=== PATIENT | female | born 1955 | race Two or more races ===

== ENCOUNTER 2017-02-25 09:46 | Inpatient (IN) | payer OTHER ==
[~2017-02-25] VITALS: Ht 170.2 cm; Wt 81.6 kg
[2017-02-25] VITALS (23 sets, daily range): BP systolic 76–136; BP diastolic 38–70
[2017-02-25] MEDS ORDERED: Acetaminophen 650 MG SUPP RECTAL ONE (10:00)
[2017-02-25 10:20] LABS: MEAN CORPUSCULAR HEMOGLOBIN 27.3 PG (27.0-31.0); MEAN CORPUSCULAR HGB CONC 31.1 G/DL (32.0-36.0); MEAN CORPUSCULAR VOLUME 88 FL (80-99); PLATELET COUNT 78 K/UL (150-450); RED BLOOD COUNT 2.72 M/UL (4.70-6.10); RED CELL DISTRIBUTION WIDTH 20.3 % (11.6-14.8)
[2017-02-25 10:21] LABS: WHITE BLOOD COUNT 25.5 K/UL (4.8-10.8)
[2017-02-25] MEDS ORDERED: ACETAMINOPHEN500 M7 PO (10:29)
[2017-02-25] MEDS ORDERED: FOLIC ACID1 MG ORAL (10:29)
[2017-02-25] MEDS ORDERED: ACETAMINOPHEN-1 EAC1 ORAL (10:29)
[2017-02-25] MEDS ORDERED: ALBUTEROL SULF8.5 GM INH (10:29)
[2017-02-25] MEDS ORDERED: LOPERAMIDE2 M1 PO (10:29)
[2017-02-25] MEDS ORDERED: REGLAN5 MG ORAL ×2 (10:29→19:18)
[2017-02-25] MEDS ORDERED: NEPHROVITE1 TAB ORAL (10:29)
[2017-02-25] MEDS ORDERED: LEVOTHYROXINE50 MCG ORAL (10:29)
[2017-02-25] MEDS ORDERED: OMEPRAZOLE20 M2 ORAL (10:29)
[2017-02-25] MEDS ORDERED: MEGESTROL ACETA40 MG PO (10:29)
[2017-02-25] MEDS ORDERED: METOPROLOL TART50 MG ORAL (10:29)
[2017-02-25] MEDS ORDERED: LOSARTAN POTASS25 MG ORAL (10:29)
[2017-02-25] MEDS ORDERED: ATORVASTATIN CA10 MG ORAL (10:29)
[2017-02-25] MEDS ORDERED: REGLAN10 MG ORAL (10:29)
[2017-02-25] MEDS ORDERED: Zemuron 50mg/5ml Inj IV ONE (10:30)
[2017-02-25] MEDS ORDERED: Etomidate 40mg/20ml Inj IV ONE (10:30)
--- NOTE | 2017-02-25 10:36 | Emergency Room Report ---
History of Present Illness General Chief Complaint: Altered Level of Consciousness Source: Medical Record Present Illness HPI 62-year-old female brought in from [facility] for altered metal status and hypotension Per EMS normal mental status is alert and oriented x3 He should not providing history of present illness, lying in bed moaning repeatedly All information from paperwork from [facility] History of muscle wasting, atrophy, hemolytic uremic syndrome anemia high blood pressure and chronic diastolic heart failure Also has chronic kidney disease Allergies: Coded Allergies: PENICILLINS (Verified Allergy, Unknown, 02/25/17) PIPERACILLIN (Verified Allergy, Unknown, 02/25/17) TAZOBACTAM (Verified Allergy, Unknown, 02/25/17) Patient History Past Medical History: other - see history of present illness Past Surgical History: unable to obtain Pertinent Family History: unable to obtain Social History: Denies: smoking, alcohol use, drug use Immunizations: UTD Reviewed Nursing Documentation: PMH: Agreed, PSxH: Agreed Nursing Documentation-PMH Hx Cardiac Problems: Yes - CHF; Anemia; High cholesterol Hx Hypertension: Yes Hx Dialysis: Yes - ; Hemolytic-uremic syndrome; CKD Review of Systems All Other Systems: limited - AMS Physical Exam Vital Signs Date Time Temp Pulse Resp B/P (MAP) Pulse Ox O2 Delivery O2 Flow Rate FiO2 02/25/17 09:44 100.0 94 20 75/38 100 Nasal Cannula 2.0 Sp02 EP Interpretation: reviewed, abnormal General Appearance: normal inspection, moderate distress, other - Cachextic, moaning, Chronically Ill Head: normocephalic, atraumatic Eyes: bilateral eye PERRL, bilateral eye EOMI ENT: normal ENT inspection, normal pharynx, no angioedema Neck: normal inspection, full range of motion, supple, no bony tend Respiratory: normal inspection, crackles, speaking full sentences Cardiovascular #1: regular rate, rhythm, no edema Gastrointestinal: normal inspection, normal bowel sounds, non tender, soft, no guarding, no hernia Genitourinary: no CVA tenderness Musculoskeletal: normal inspection, back normal, normal range of motion, Arpan' s Sign negative Neurologic: normal inspection, alert, responsive, speech normal Psychiatric: normal inspection, judgement/insight normal, mood/affect normal Skin: normal inspection, normal color, no rash Procedures Critical Care Time Critical Care Time CC time 45min Critical care time endorsed for this patient for sepsis Critical care time includes review of laboratory tests, imaging, review of EMR, review of paperwork from SNF (if available), discussion with patient and family (if available), review of code status/POLS (if available). Critical care time also likely includes assessment of fluid status, stabilization of vital signs, selection and dosing of appropriate antibiotics, selection and dosing of Aspirin/Plavix/Heparin/Lovenox, discussion with PMD/ attending hospitalist/nutrition partner. Critical care time does not include any procedures which are documented elsewhere in this EMR. Central Line Central Line : Consent: Emergent Central Line Lumen: triple Maximal Sterile Barrier Tech: yes cap, yes mask, yes sterile gown, yes sterile gloves, yes large sterile sheet, yes hand hygiene, yes chlorhexidine prep No Max Barrier Tech Because: emergency insertion Central Line Postion: internal jugular (R) Complications: none Central Line Post Position: sutured, good blood return, position confirmed w / CXR Attempts: One Patient Tolerated: Well Complications: None Intubation Intubation : Consent: Emergent Intubation Method: orotracheal Tube Size (cm): 7.5 Medications: Etomidate, Rocuronium Breath Sounds after Intubation: equal Intubation Complications: no complications Post Intubation Xray: Yes Attempts: One Patient Tolerated: Well Complications: None Medical Decision Making Diagnostic Impression: Primary Impression: Altered level of consciousness Additional Impressions: Sepsis Qualified Codes: A41.9 - Sepsis, unspecified organism Hypotension Qualified Codes: I95.9 - Hypotension, unspecified Anemia Qualified Codes: D64.9 - Anemia, unspecified CKD (chronic kidney disease) Qualified Codes: N18.6 - End stage renal disease; Z99.2 - Dependence on renal dialysis Elevated troponin I level ER Course 62-year-old female with altered mental status likely due to bilateral pneumonia Sepsis criteria met given hypotension, tachycardic, febrile and evidence of pneumonia on chest x-ray Was emergently intubated in the ER Antibiotics given, blood cultures pending Gave only one liter of fluid given history of CHF, so full 30 mL per KG fluid bolus per sepsis bundle was not given because of underlying heart failure Chest x-ray shows diffuse pulmonary congestion, no actual pneumonia per radiology read Patient does not make urine due to CKD on dialysis Patient initial hypotension likely multifactorial Hemoglobin is 7.4, she was transfused 2 units of blood in the ED Patient also possibly hypotensive due to sepsis. White count greater than 20. Chest x-ray shows pulmonary congestion and but there could be underlying infiltrate. Abdomen is nondistended so that is also unlikely the source. Elevated troponin greater than 1 however EKG shows sinus tachycardia with PVCs only no no ST elevation or ST depression Will hold on giving heparin for nstemi given thrombocytopenia Elevated troponin likely more related to demand ischemia from sepsis and/or Ckd Patient had a right IJ central line placed in the ER However her blood pressure has maintained with 1 L NS Does not require pressors in the ER ICU admission, 11:[address] Cason as preferred hospital per insurance EKG Diagnostic Results Rate: tachycardiac Rhythm: NSR ST Segments: no acute changes ASA given to the pt in ED: No Rhythm Strip Diag. Results EP Interpretation: yes Rate: 109 Rhythm: NSR, no PVC's Chest X-Ray Diagnostic Results Chest X-Ray Diagnostic Results #1: Chest X-Ray Ordered: Yes # of Views/Limited/Complete: 1 View Indication: Shortness of Breath EP Interpretation: Yes Interpretation: no effusion, no pneumothorax, other - Bilateral infilitates , PNA vs CHF Electronically Signed by: Dr Ashanti Omer MD Chest X-Ray Diagnostic Results #2: Chest X-Ray Ordered: Yes # of Views/Limited/Complete: 1 View Indication: Other - intubation EP Interpretation: Yes Interpretation: other - Continued pulm congestion. Satisfactory ET tube placement Electronically Signed by: Dr Ashanti Omer MD Last Vital Signs Date Time Temp Pulse Resp B/P (MAP) Pulse Ox O2 Delivery O2 Flow Rate FiO2 02/25/17 09:44 100.0 94 20 75/38 100 Nasal Cannula 2.0 Status: improved Disposition: ADMITTED INPATIENT Condition: Critical Referrals: ROSANNE POLLARD (PCP) ASHANTI OMER M.D. Feb 25, 2017 10:36
--- NOTE | 2017-02-25 10:58 | Diagnostic Imaging Report ---
Indication: Dyspnea Comparison: None A single view chest radiograph was obtained. Findings: Vascular and interstitial prominence demonstrated with cardiomegaly. There is a right permacath. Bones are osteopenic. Impression: Congestive heart failure
[2017-02-25 11:04] LABS: ANISOCYTOSIS 2+; BAND NEUTROPHILS % (MANUAL) 0 % (0-8); BASOPHILS % (MANUAL) 0 % (0-2); EOSINOPHILS % (MANUAL) 0 % (0-3); HYPOCHROMASIA 1+; LYMPHOCYTES % (MANUAL) 1 % (20-45); NEUTROPHILS % (MANUAL) 98 % (45-75); PLATELET ESTIMATE DECREASED; PLATELET MORPHOLOGY NORMAL; TOTAL CELLS COUNTED 100
[2017-02-25 11:05] LABS: ALANINE AMINOTRANSFERASE 9 U/L (12-78); ALBUMIN/GLOBULIN RATIO 0.4 (1.0-2.7); ANION GAP 7 mmol/L (5-15); ASPARTATE AMINO TRANSFERASE 33 U/L (15-37); CALCIUM 7.5 MG/DL (8.5-10.1); CARBON DIOXIDE 28 MMOL/L (21-32); CHLORIDE 105 MMOL/L (98-107); CKMB 4.3 NG/ML (0.0-3.6); CREATININE 2.5 MG/DL (0.55-1.30); GLOMERULAR FILTRATION RATE 26.3 mL/min (>60); POTASSIUM 3.5 MMOL/L (3.5-5.1); SODIUM 139 MMOL/L (136-145); TOTAL PROTEIN 4.8 G/DL (6.4-8.2)
--- NOTE | 2017-02-25 11:15 | Diagnostic Imaging Report ---
Indication: Dyspnea Comparison: 02/25/17 10:17 A single view chest radiograph was obtained. Findings: Current study done 10:53 Endotracheal tube is in good position 3 cm above the mary. No change otherwise demonstrated. Pulmonary edema, right permacath noted with cardiomegaly. Impression: Endotracheal tube in good position
[2017-02-25] MEDS ORDERED: Levophed 4mg/4mL Inj IV ONE (13:01)
[2017-02-25 14:07] LABS: ABG PCO2 41.6 mmHg (35.0-45.0)
[2017-02-25 14:08] LABS: ABG ALLEN TEST POSITIVE; ABG BASE EXCESS -0.6
[2017-02-25] MEDS ORDERED: Vancomycin 1 GM in D5W 275 ML IVPB ONE (14:30)
[2017-02-25] MEDS ORDERED: Vancomycin 1gm inj IVPB ONE (14:54)
[2017-02-25] MEDS ORDERED: LORazepam Inj 2mg/ml 1ml IV PRN (15:15)
[2017-02-25] MEDS ORDERED: Miralax 17gm pkt ORAL PRN (15:15)
[2017-02-25] MEDS ORDERED: Albuterol/Ipratropium 3ml neb HHN PRN (15:15)
--- NOTE | 2017-02-25 15:38 | Pulmonolgy Critical Care Note ---
Critical Care - Asmt/Plan Assessment/Plan: ASSESSMENT severe sepsis with shock acute hypoxemic respiratory failure requiring intubation acute toxic metabolic encephalopathy likely due to sepsis elevated troponin acute anemia requiring blood transfusion Pulmonary edema ESRD, on HD Hx of CHF PLAN OF CARE ICU care vent support Pulmonary toilet daily CXR and ABG titrate settings as needed hemodynamic support on Levophed, titrate to keep MAP above 65, empiric abx, fup with cx ID consult serial troponin ECHO Venous Duplex BLE transfuse 2 u PRBC monitor counts anemia w/up DVT GI prophylaxis case discussed and evaluated by supervising physician Critical Care - Objective Last 24 Hour Vital Signs Date Time Temp Pulse Resp B/P (MAP) Pulse Ox O2 Delivery O2 Flow Rate FiO2 02/25/17 13:30 97.5 121 17 105/51 100 Room Air 2.0 30 91 02/25/17 13:11 80/48 02/25/17 12:38 105 18 30 02/25/17 11:30 121 14 136/70 100 Mechanical Ventilator 100 02/25/17 11:00 97.5 02/25/17 11:00 117 12 100 02/25/17 11:00 97.5 02/25/17 10:46 100 02/25/17 10:30 108 19 76/44 100 Nasal Cannula 2.0 02/25/17 09:50 117 12 Mechanical Ventilator 02/25/17 09:50 100.1 115 18 85/44 99 Nasal Cannula 2.0 02/25/17 09:50 115 20 Nasal Cannula 2.0 02/25/17 09:44 100.0 94 20 75/38 100 Nasal Cannula 2.0 Status: sedated, other Condition: critical HEENT: atraumatic, normocephalic, other - OP with ET in palce, intact Neck: other - RIJ TL intact Lungs: clear, other - R chest HD catheter intact Heart: HR/BP unstable Abdomen: soft, non-tender, active bowel sounds Extremities: no C/C/E Critical Care - Subjective ROS Limited/Unobtainable: Yes Interval Events: admitted with fever, hypoxemia, tachycardia, hypotension , anemia, elevated troponin required emergent intubation and placement of CL for pressors started on blood transfusion awaiting for transfer to ICU Condition: critical IV Access: central - R IJ EKG Rhythm: Sinus Rhythm FI02: 30 Vent Support Breath Rate: 14 Vent Support Mode: AC Vent Tidal Volume: 500 Sputum Amount: Scant PEEP: 5.0 PIP: 18 Fluids: NS at 100 Drips: Levophed gtt I&O: Intake and Output 02/25/17 02/26/17 19:00 07:00 Intake Total 1100 ml Output Total 0 ml Balance 1100 ml Intake IV Total 1100 ml Output Urine Total 0 ml ET-Tube: 7.5 ET Position: 25 Hero (RosetteJuanis ramey NP Feb 25, 2017 15:38
[2017-02-25] MEDS ORDERED: Amikacin 1,000 MG in NS 110 ML IV SCH (18:00)
[2017-02-25] MEDS ORDERED: NEPHRO-VITE RX1 EAC1 PO (19:09)
[2017-02-25] MEDS ORDERED: ACETAMINOPHEN325 M1 ORAL (19:14)
[2017-02-25] MEDS: Heparin 5000 units/ml inj SUBQ SCH (21:00)
[2017-02-25] MEDS ORDERED: Vancomycin 1 GM in D5W 275 ML IV SCH (23:45)
[2017-02-26] VITALS (86 sets, daily range): BP systolic 68–160; BP diastolic 29–78
[2017-02-26 06:43] LABS: ALANINE AMINOTRANSFERASE 9 U/L (12-78); ALBUMIN/GLOBULIN RATIO 0.3 (1.0-2.7); ANION GAP 11 mmol/L (5-15); ASPARTATE AMINO TRANSFERASE 54 U/L (15-37); BILIRUBIN,DIRECT 0.7 MG/DL (0.0-0.3); CARBON DIOXIDE 21 MMOL/L (21-32); CHLORIDE 105 MMOL/L (98-107); CREATININE 2.7 MG/DL (0.55-1.30); GLOMERULAR FILTRATION RATE 17.9 mL/min (>60); POTASSIUM 4.3 MMOL/L (3.5-5.1); SODIUM 136 MMOL/L (136-145); TOTAL PROTEIN 5.2 G/DL (6.4-8.2)
--- NOTE | 2017-02-26 08:28 | Diagnostic Imaging Report ---
Indication: Status post central line placement Technique: One view of the chest Comparison: One hour earlier Findings: Interim placement right jugular central venous catheter, tip which projects at the level of the internal jugular vein orifice. Stable satisfactory position of endotracheal tube. Tunneled dialysis catheter has its tip in the vena cava. Bilateral interstitial and airspace disease is again demonstrated, appears unchanged. Heart size is borderline enlarged. No pneumothorax Impression: Interim placement right internal jugular central venous catheter, tip at the level of the internal jugular venous orifice No pneumothorax Other stable findings as described
--- NOTE | 2017-02-26 08:33 | Diagnostic Imaging Report ---
Indication: Status post repositioning of central venous catheter Technique: One view of the chest Comparison: One hour earlier Findings: Interim advancement of previously demonstrated right jugular central venous catheter, tip now projecting at level of the cavoatrial junction. Stable positions of endotracheal tube and tunneled dialysis catheter. Interstitial congestive changes persists Impression: Central venous catheter tip now at the cavoatrial junction Other stable findings as described
[2017-02-26] MEDS ORDERED: Dyna-Hex 2% Top Sol 2oz TOPIC SCH (09:00)
[2017-02-26] MEDS: Heparin 5000 units/ml inj SUBQ SCH ×2 (09:00→20:38)
[2017-02-26] MEDS: Pantoprazole Inj IVP SCH (09:22)
--- NOTE | 2017-02-26 09:59 | Wound Care Consultation ---
Wound Assessment Wound Assessment #1: Wound Number: 1 Wound Present on Admission: Yes New Wound: No Status Change of Wound: No Wound Location Body Site Modif: left Wound Location Body Site: heel Wound Type: pressure ulcer Marilyn Test: Does not Marilyn Pressure Ulcer Stage: Deep Tissue Injury - scattered Wound Thickness: Full Thickness Wound Length: 8.0 Wound Width: 7.0 Wound Depth: utd Percent of Wound Purple/Maroon: 100 Other Colors Identified: dry,flaky, cracked skin Wound Drainage Amount: None Wound Drainage Odor: None/Absent Tissue Surrounding Wound: Erythemic Wound General Appearance: Reddened - maroon Wound Assessment #2: Wound Number: 2 Wound Present on Admission: Yes New Wound: No Status Change of Wound: No Wound Location Body Site Modif: right Wound Location Body Site: heel Wound Type: pressure ulcer Marilyn Test: Does not Marilyn Pressure Ulcer Stage: Deep Tissue Injury - scattered Wound Thickness: Full Thickness Wound Length: 10.0 Wound Width: 10.0 Wound Depth: utd Percent of Wound Purple/Maroon: 100 Other Colors Identified: dry,flaky cracked skin Wound Drainage Amount: None Wound Drainage Odor: None/Absent Tissue Surrounding Wound: Erythemic Wound General Appearance: Reddened - maroon Wound Assessment #3: Wound Number: 3 Wound Present on Admission: Yes New Wound: No Status Change of Wound: No Wound Location Body Site: other - large area on sacrococcygeal extending to left and right butocks Wound Type: pressure ulcer Marilyn Test: Does not Marilyn Pressure Ulcer Stage: Unstageable - scattered Wound Thickness: Full Thickness Wound Length: 15.0 Wound Width: 25.0 Wound Depth: utd Percent of Wound Bed Yellow/Wh: 50 Percent of Wound Purple/Maroon: 50 Other Colors Identified: surrounding tissue large scattered DTI,at risk for further skin breakdown Wound Drainage Description: Serosanguineous Wound Drainage Amount: Moderate Wound Drainage Odor: None/Absent Tissue Surrounding Wound: Macerated Wound General Appearance: Reddened - maroon, Draining, Necrotic Wound Assessment #4: Wound Number: 4 Wound Present on Admission: Yes New Wound: No Status Change of Wound: No Wound Location Body Site Modif: left Wound Location Body Site: ischial tuberosity Wound Type: pressure ulcer Marilyn Test: Does not Marilyn Pressure Ulcer Stage: Unstageable - with scattered stage 3 Wound Thickness: Full Thickness Wound Length: 12.0 Wound Width: 12.0 Wound Depth: utd Percent of Wound Blawnox/Red: 50 Percent of Wound Bed Yellow/Wh: 50 Wound Drainage Description: Serosanguineous Wound Drainage Amount: Moderate Wound Drainage Odor: None/Absent Tissue Surrounding Wound: Macerated Wound General Appearance: Reddened, Draining, Necrotic Wound Assessment #5: Wound Number: 5 Wound Present on Admission: Yes New Wound: No Status Change of Wound: No Wound Location Body Site Modif: right Wound Location Body Site: ischial tuberosity Wound Type: pressure ulcer Marilyn Test: Does not Marilyn Pressure Ulcer Stage: III - scattered Wound Thickness: Full Thickness Wound Length: 10.0 Wound Width: 10.0 Wound Depth: 0.3 Percent of Wound Blawnox/Red: 90 Percent of Wound Bed Yellow/Wh: 10 Wound Drainage Description: Serosanguineous Wound Drainage Amount: Moderate Wound Drainage Odor: None/Absent Tissue Surrounding Wound: Macerated Wound General Appearance: Reddened, Draining Wound Assessment #6: Wound Number: 6 Wound Present on Admission: Yes New Wound: No Status Change of Wound: No Wound Location Body Site Modif: left Wound Location Body Site: trochanter Wound Type: pressure ulcer Marilyn Test: Does not Marilyn Pressure Ulcer Stage: Deep Tissue Injury Wound Thickness: Full Thickness Wound Length: 7.0 Wound Width: 6.0 Wound Depth: utd Percent of Wound Purple/Maroon: 100 Wound Drainage Amount: None Wound Drainage Odor: None/Absent Tissue Surrounding Wound: Erythemic - maroon Wound General Appearance: Reddened Wound Assessment #7: Wound Number: 7 Wound Present on Admission: Yes New Wound: No Status Change of Wound: No Wound Location Body Site Modif: left, lateral Wound Location Body Site: other - torso Wound Type: pressure ulcer Marilyn Test: Does not Marilyn Pressure Ulcer Stage: Deep Tissue Injury Wound Thickness: Full Thickness Wound Length: 7.0 Wound Width: 6.0 Wound Depth: utd Percent of Wound Purple/Maroon: 100 Wound Drainage Amount: None Wound Drainage Odor: None/Absent Tissue Surrounding Wound: Erythemic - maroon Wound General Appearance: Reddened Wound Assessment #8: Wound Number: 8 Wound Present on Admission: Yes New Wound: No Status Change of Wound: No Wound Location Body Site Modif: left Wound Location Body Site: ear Wound Type: pressure ulcer Marilyn Test: Does not Marilyn Pressure Ulcer Stage: Deep Tissue Injury Wound Thickness: Full Thickness Wound Length: 5.0 Wound Width: 3.0 Wound Depth: utd Percent of Wound Purple/Maroon: 100 Wound Drainage Description: Serous Wound Drainage Odor: None/Absent Tissue Surrounding Wound: Erythemic - maroon Wound General Appearance: Reddened - maroon Wound Assessment #9: Wound Number: 9 Wound Present on Admission: Yes New Wound: No Status Change of Wound: No Wound Location Body Site Modif: right, lower, posterior Wound Location Body Site: leg Wound Type: pressure ulcer Marilyn Test: Does not Marilyn Pressure Ulcer Stage: Deep Tissue Injury - suspected Wound Thickness: Full Thickness Wound Length: 5.0 Wound Width: 4.0 Wound Depth: utd Percent of Wound Blawnox/Red: 100 - deep red Wound Drainage Amount: None Wound Drainage Odor: None/Absent Tissue Surrounding Wound: Erythemic Wound General Appearance: Reddened Wound Assessment #10: Wound Number: 10 Wound Present on Admission: Yes New Wound: No Status Change of Wound: No Wound Location Body Site Modif: left, lateral Wound Location Body Site: shoulder Wound Type: pressure ulcer Marilyn Test: Does not Marilyn Pressure Ulcer Stage: Deep Tissue Injury Wound Thickness: Full Thickness Wound Length: 5.0 Wound Width: 4.0 Wound Depth: utd Percent of Wound Purple/Maroon: 100 Wound Drainage Amount: None Wound Drainage Odor: None/Absent Tissue Surrounding Wound: Erythemic Wound General Appearance: Reddened - maroon Wound Assessment #11: Wound Number: 11 Wound Present on Admission: Yes New Wound: No Status Change of Wound: No Wound Location Body Site Modif: right, dorsal Wound Location Body Site: foot Wound Type: pressure ulcer Marilyn Test: Does not Marilyn Pressure Ulcer Stage: I Wound Length: 2.0 Wound Width: 2.0 Percent of Wound Blawnox/Red: 100 - nonblanchable Wound Drainage Amount: None Wound Drainage Odor: None/Absent Tissue Surrounding Wound: Erythemic Wound General Appearance: Reddened Wound Assessment #12: Wound Number: 12 Wound Present on Admission: Yes New Wound: No Status Change of Wound: No Wound Location Body Site Modif: left, lateral Wound Location Body Site: foot Wound Type: pressure ulcer Marilyn Test: Does not Marilyn Pressure Ulcer Stage: Deep Tissue Injury - scattered suspected Wound Thickness: Full Thickness Percent of Wound Blawnox/Red: 50 - scattered Percent of Wound Purple/Maroon: 50 - scattered Wound Drainage Amount: None Wound Drainage Odor: None/Absent Tissue Surrounding Wound: Erythemic Wound General Appearance: Reddened Wound Assessment #13: Wound Number: 13 Wound Present on Admission: Yes New Wound: No Status Change of Wound: No Wound Location Body Site Modif: right, lateral Wound Location Body Site: foot Wound Type: pressure ulcer Marilyn Test: Does not Marilyn Pressure Ulcer Stage: Deep Tissue Injury - scattered suspected Wound Thickness: Full Thickness Percent of Wound Blawnox/Red: 50 Percent of Wound Purple/Maroon: 50 Wound Drainage Amount: None Wound Drainage Odor: None/Absent Tissue Surrounding Wound: Erythemic Wound General Appearance: Reddened Wound Comment #1 Left heel Deep Tissue injury with dry, flaky cracked skin #2 Right heel Deep Tissue Injury with dry flaky cracked skin. #3 Sacrococcygeal extending to left and right buttocks scattered unstageable pressure ulcers and with large area noted with deep maroon/purple scattered Deep Tissue injuries at risk for further skin breakdown. #4 Left Ischial Tuberosity scattered unstageable pressure ulcers, with scattered stage 3 pressure ulcers. #5 Right Ischial Tuberosity scattered stage 3 pressure ulcers. #6 Left Trochanter Deep Tissue injury #7 Left lateral torso Deep Tissue Injury. #8Left lateral shoulder Deep Tissue Injury. #9 Left ear Deep Tissue Injury. #10 Right posterior lower leg Suspected Deep Tissue Injury. #11 Right Dorsal Aspect of foot stage 1. #12 Left Lateral foot scattered suspected Deep tissue injury. #13 Right Lateral foot scattered suspected Deep tissue injury. #14 Left dorsal aspect of foot 2 circular areas with full thickness scar tissue -intact. Recommendation. -Local Wound Care as ordered. -Apply low air loss P200 for wound and skin management -Turn and reposition. -Keep clean and dry. -Optimize Nutrition. -Heel protectors. -Offload heels and affected areas. -Avoid shear and friction. -Assess and notify MD for any further change of condition to skin noted. LIANET THAKKAR Feb 26, 2017 09:59
[2017-02-26] MEDS ORDERED: Vancomycin 1gm in D5W 275ml IVPB ONE (10:00)
[2017-02-26 10:05] LABS: MEAN CORPUSCULAR HEMOGLOBIN 28.3 PG (27.0-31.0); MEAN CORPUSCULAR HGB CONC 32.4 G/DL (32.0-36.0); MEAN CORPUSCULAR VOLUME 87 FL (80-99); PLATELET COUNT 59 K/UL (150-450); RED BLOOD COUNT 4.13 M/UL (4.20-5.40)
--- NOTE | 2017-02-26 10:08 | Consultation ---
History of Present Illness General Date patient seen: Feb 26, 2017 Time patient seen: 10:08 Chief Complaint: Altered Level of Consciousness Present Illness HPI 62 y/o F with hx of HTN, chronic dCHF, CKD, HLD HUS, ESRD on HD T//, muscle wasting/atrophy, [facility] is brought to ED on 02/25 with AMS and hypotension. Admitted to ICU for septic shock and acute hypoxemic respiratory failure requiring intubation and started on levophed. Low grade fever Tm, 100.1, afebrile in 24hrs Leukocytosis 25 initillay, today worse to 46.1. On IV Vanco and amikacin, now bacteremic with GPC clustesr 06/27 Allergies: Coded Allergies: PENICILLINS (Verified Allergy, Unknown, 02/25/17) PIPERACILLIN (Verified Allergy, Unknown, 02/25/17) TAZOBACTAM (Verified Allergy, Unknown, 02/25/17) Medication History Scheduled Atorvastatin Calcium* (Lipitor*), 10 MG ORAL BEDTIME, (Reported) Folic Acid* (Folic Acid*), 1 MG ORAL DAILY, (Reported) Levothyroxine Sodium* (Levothyroxine Sodium*), 0.05 MG ORAL DAILY, (Reported) Losartan Potassium* (Losartan Potassium*), 25 MG ORAL DAILY, (Reported) Megestrol Acetate (Megestrol Acetate), 5 ML PO DAILY, (Reported) Metoprolol Tartrate* (Metoprolol Tartrate*), 75 MG ORAL EVERY 12 HOURS, ( Reported) Omeprazole (Omeprazole), 20 MG ORAL DAILY, (Reported) Vit B Cmplx 3/Fa/Vit C/Biotin (Nephro-Ghada Rx Tablet), 1 MG PO DAILY, (Reported) Scheduled PRN Acetaminophen With Codeine (T#3) (Tylenol #3 Tab*), 1 TAB ORAL Q6HR PRN for For Pain, (Reported) Acetaminophen* (Acetaminophen 325MG Tablet*), 325 MG ORAL Q6H PRN for For Pain Level <=5, (Reported) Loperamide Hcl (Loperamide), 2 MG PO Q6HR PRN for Diarrhea, (Reported) Metoclopramide Hcl* (Reglan*), 5 MG ORAL EVERY 8 HOURS PRN for Nausea & Vomiting , (Reported) Discontinued Medications Acetaminophen (Acetaminophen), 650 MG PO Q6HR PRN for Fever/Headache/Mild Pain, (Reported) Discontinued Reason: Prescription changed Albuterol Sulfate* (Albuterol Sulfate Mdi*), 1 PUFF INH Q4HR PRN for Shortness of Breath, (Reported) Discontinued Reason: Pt stopped taking med Metoclopramide Hcl* (Reglan*), 10 MG ORAL THREE TIMES A DAY PRN for Nausea & Vomiting, (Reported) Discontinued Reason: Pt stopped taking med Vitamin B Cmplx/Vit C/Folic AC (Nephro-Ghada Tablet), 1 TAB ORAL DAILY, (Reported ) Discontinued Reason: Pt stopped taking med Patient History Healthcare decision maker Resuscitation status Full Code Advanced Directive on File Patient History Narrative Pmhx: as above SHx: Denies: smoking, alcohol use, drug use Fhx: non contributory Review of Systems ROS Narrative unable to obtain Physical Exam Physical Exam Narrative Status: sedated, other Condition: critical HEENT: atraumatic, normocephalic, other - OP with ET in palce, intact Neck: other - RIJ TL intact Lungs: clear, other -s/p removal R HD cath Heart: HR/BP unstable Abdomen: soft, non-tender, active bowel sounds Extremities: no C/C/E Last 24 Hour Vital Signs Date Time Temp Pulse Resp B/P (MAP) Pulse Ox O2 Delivery O2 Flow Rate FiO2 02/26/17 08:09 95/36 02/26/17 08:00 30 02/26/17 07:24 133 17 30 02/26/17 07:15 128 16 96/54 100 Mechanical Ventilator 30 02/26/17 07:00 95/44 02/26/17 07:00 127 16 95/54 100 Mechanical Ventilator 30 02/26/17 06:45 126 17 92/65 95 Mechanical Ventilator 30 02/26/17 06:30 122 16 91/42 99 Mechanical Ventilator 30 02/26/17 06:15 127 16 107/56 100 Mechanical Ventilator 30 02/26/17 06:00 97/52 02/26/17 06:00 127 14 97/52 100 Mechanical Ventilator 30 02/26/17 05:45 126 16 93/60 100 Mechanical Ventilator 30 02/26/17 05:30 122 14 83/39 100 Mechanical Ventilator 30 02/26/17 05:26 126 16 30 02/26/17 05:15 124 15 100/40 100 Mechanical Ventilator 30 02/26/17 05:01 87/40 02/26/17 05:00 98.7 121 16 77/45 100 Mechanical Ventilator 30 02/26/17 04:45 118 16 87/40 100 Mechanical Ventilator 30 02/26/17 04:30 124 16 87/42 100 Mechanical Ventilator 30 02/26/17 04:15 118 16 87/41 100 Mechanical Ventilator 30 02/26/17 04:00 30 02/26/17 04:00 99.3 111 16 86/41 100 Mechanical Ventilator 30 02/26/17 04:00 87/40 02/26/17 04:00 85 02/26/17 03:45 106 14 86/41 98 Mechanical Ventilator 30 02/26/17 03:30 95 16 86/41 100 Mechanical Ventilator 30 02/26/17 03:21 84 16 30 02/26/17 03:15 84 16 87/37 100 Mechanical Ventilator 30 02/26/17 03:00 84 16 83/36 100 Mechanical Ventilator 30 02/26/17 03:00 83/36 02/26/17 02:45 86 16 87/40 100 Mechanical Ventilator 30 02/26/17 02:30 84 16 92/37 100 Mechanical Ventilator 30 02/26/17 02:15 83 16 77/37 100 Mechanical Ventilator 30 02/26/17 02:00 68/43 02/26/17 02:00 82 16 68/43 100 Mechanical Ventilator 30 02/26/17 01:45 82 16 75/43 100 Mechanical Ventilator 30 02/26/17 01:30 84 16 87/39 100 Mechanical Ventilator 30 02/26/17 01:25 84 16 30 02/26/17 01:15 99 16 94/48 100 Mechanical Ventilator 30 02/26/17 01:04 87/29 02/26/17 01:00 83 16 94/38 100 Mechanical Ventilator 30 02/26/17 00:45 84 16 82/39 100 Mechanical Ventilator 30 02/26/17 00:30 92 16 97/40 100 Mechanical Ventilator 30 02/26/17 00:15 89 16 87/29 100 Mechanical Ventilator 30 02/26/17 00:00 30 02/26/17 00:00 98.4 91 16 91/40 100 Mechanical Ventilator 30 02/26/17 00:00 91/40 02/26/17 00:00 92 02/25/17 23:45 83 16 90/39 100 Mechanical Ventilator 30 02/25/17 23:30 81 16 91/38 100 Mechanical Ventilator 30 02/25/17 23:27 82 16 30 02/25/17 23:15 89 16 83/47 100 Mechanical Ventilator 30 02/25/17 23:00 83/47 02/25/17 23:00 86 16 84/40 100 Mechanical Ventilator 30 02/25/17 22:45 85 18 90/43 100 Mechanical Ventilator 30 02/25/17 22:30 86 16 81/41 100 Mechanical Ventilator 30 02/25/17 22:15 93 17 84/45 100 Mechanical Ventilator 30 02/25/17 22:00 84/40 02/25/17 22:00 90 16 84/40 100 Mechanical Ventilator 30 02/25/17 21:45 88 16 77/42 100 Mechanical Ventilator 30 02/25/17 21:30 93 18 81/40 100 Mechanical Ventilator 30 02/25/17 21:25 98 19 30 02/25/17 21:15 93 14 91/41 100 Mechanical Ventilator 30 02/25/17 21:00 91/44 02/25/17 21:00 83 19 91/44 100 Mechanical Ventilator 30 02/25/17 20:45 78 17 87/47 100 Mechanical Ventilator 30 02/25/17 20:30 81 12 89/41 100 Mechanical Ventilator 30 02/25/17 20:15 90 19 81/44 100 Mechanical Ventilator 30 02/25/17 20:10 83/45 02/25/17 20:00 97.5 90 16 80/39 100 Mechanical Ventilator 30 02/25/17 20:00 30 02/25/17 19:45 83 16 94/46 100 Mechanical Ventilator 30 02/25/17 19:30 97.5 91 19 105/51 100 Mechanical Ventilator 30 02/25/17 19:30 88 02/25/17 19:20 97 19 30 02/25/17 19:00 98 17 106/59 100 Mechanical Ventilator 30 02/25/17 17:03 101/61 02/25/17 16:55 90 17 30 02/25/17 16:45 94/52 02/25/17 16:20 106/54 02/25/17 16:01 108/61 02/25/17 15:45 114/60 02/25/17 15:35 93 17 30 02/25/17 15:02 111/58 02/25/17 13:31 105/57 02/25/17 13:30 97.5 121 17 105/51 100 Room Air 2.0 30 91 02/25/17 13:11 84/51 02/25/17 13:11 80/48 02/25/17 12:45 97.5 115 17 02/25/17 12:38 105 18 30 02/25/17 12:30 97.5 108 17 02/25/17 11:30 121 14 136/70 100 Mechanical Ventilator 100 02/25/17 11:00 97.5 02/25/17 11:00 117 12 100 02/25/17 11:00 97.5 02/25/17 10:46 100 02/25/17 10:30 108 19 76/44 100 Nasal Cannula 2.0 Intake and Output 02/26/17 02/27/17 19:00 07:00 Output Total 0 ml Balance 0 ml Output Urine Total 0 ml Laboratory Tests Test 02/25/17 11:14 02/25/17 14:00 02/26/17 02:00 02/26/17 05:45 Activated Partial Thromboplast Time 51 SEC (23-33) H Arterial Blood pH 7.380 (7.350-7.450) Arterial Blood Partial Pressure CO2 41.6 mmHg (35.0-45.0) Arterial Blood Partial Pressure O2 567.5 mmHg (75.0-100.0) H Arterial Blood HCO3 24.4 mmol/L (22.0-26.0) Arterial Blood Oxygen Saturation 99.3 % (92.0-98.0) H Arterial Blood Base Excess -0.6 Farhan Test Positive Troponin I 3.763 ng/mL (0.000-0.056) Sodium Level 136 MMOL/L (136-145) Potassium Level 4.3 MMOL/L (3.5-5.1) Chloride Level 105 MMOL/L (98-107) Carbon Dioxide Level 21 MMOL/L (21-32) Anion Gap 11 mmol/L (5-15) Blood Urea Nitrogen 39 mg/dL (7-18) H Creatinine 2.7 MG/DL (0.55-1.30) H Estimat Glomerular Filtration Rate 17.9 mL/min (>60) Glucose Level 124 MG/DL (74-106) H Calcium Level 7.0 MG/DL (8.5-10.1) L Total Bilirubin 1.9 MG/DL (0.2-1.0) H Direct Bilirubin 0.7 MG/DL (0.0-0.3) H Aspartate Amino Transf (AST/SGOT) 54 U/L (15-37) H Alanine Aminotransferase (ALT/SGPT) 9 U/L (12-78) L Alkaline Phosphatase 231 U/L (46-116) H Total Protein 5.2 G/DL (6.4-8.2) L Albumin 1.3 G/DL (3.4-5.0) L Globulin 3.9 g/dL Albumin/Globulin Ratio 0.3 (1.0-2.7) L Random Amikacin Level Pending Random Vancomycin Level 11.5 ug/mL Test 02/26/17 09:30 White Blood Count Pending Red Blood Count Pending Hemoglobin Pending Hematocrit Pending Mean Corpuscular Volume Pending Mean Corpuscular Hemoglobin Pending Mean Corpuscular Hemoglobin Concent Pending Red Cell Distribution Width Pending Platelet Count Pending Mean Platelet Volume Pending Neutrophils (%) (Auto) Pending Lymphocytes (%) (Auto) Pending Monocytes (%) (Auto) Pending Eosinophils (%) (Auto) Pending Basophils (%) (Auto) Pending Troponin I Pending Microbiology Date/Time Source Procedure Growth Status 02/25/17 19:45 Nasal Nares Influenza Types A,B Antigen (YANY) - Final Complete Height (Feet): 5 Height (Inches): 7.00 Weight (Pounds): 156 Medications Current Medications Medications (Trade) Dose Ordered Sig/Nina Route PRN Reason Start Time Stop Time Status Last Admin Dose Admin Acetaminophen (Tylenol) 650 mg Q4H PRN ORAL fever 02/25/17 15:15 03/27/17 15:14 Albuterol/ Ipratropium (Albuterol/ Ipratropium) 3 ml Q4H PRN HHN Shortness of Breath 02/25/17 15:15 03/02/17 15:14 Amikacin Sulfate 1000 mg/Sodium Chloride 114 ml @ 114 mls/hr Q48H IV 02/25/17 18:00 03/04/17 17:59 Chlorhexidine Gluconate (Poonam-Hex 2%) 1 applic DAILY TOPIC 02/26/17 09:00 03/28/17 08:59 02/26/17 09:21 Heparin Sodium (Porcine) (Heparin 5000 units/ml) 5,000 units EVERY 12 HOURS SUBQ 02/25/17 21:00 03/27/17 20:59 Levothyroxine Sodium (Synthroid) 50 mcg ACBREAKFAST ORAL 02/26/17 06:30 03/28/17 06:29 02/26/17 06:01 Lorazepam (Ativan 2mg/ml 1ml) 2 mg Q2H PRN IV For Anxiety 02/25/17 15:15 03/04/17 15:14 Morphine Sulfate (Morphine Sulfate) 4 mg Q4H PRN IVP Severe Pain (Pain Scale 7-10) 02/25/17 15:15 03/04/17 15:14 Norepinephrine Bitartrate 4 mg/ Dextrose 254 ml @ 0 mls/hr Q24H IV 02/25/17 15:15 03/27/17 15:14 02/26/17 08:09 Ondansetron HCl (Zofran) 4 mg Q6H PRN IVP Nausea & Vomiting 02/25/17 15:15 03/27/17 15:14 Pantoprazole (Protonix) 40 mg DAILY IVP 02/26/17 09:00 03/28/17 08:59 02/26/17 09:22 Polyethylene Glycol (Miralax) 17 gm DAILYPRN PRN ORAL Constipation 02/25/17 15:15 03/27/17 15:14 Sodium Chloride 1,000 ml @ 100 mls/hr Q10H IVLG 02/25/17 16:45 03/27/17 16:44 02/26/17 06:01 Vancomycin HCl (Vanco rx to dose) 1 ea DAILY PRN MISC RX TO DOSE 02/26/17 07:15 03/28/17 07:14 Vancomycin HCl 1 gm/Dextrose 275 ml @ 183.708 mls/hr ONCE ONCE IVPB 02/26/17 10:00 02/26/17 11:29 02/26/17 09:21 Assessment/Plan Assessment/Plan Abx: IV Vancomycin 01/26- Amikacin 01/26- Levaquin x1 01/26 Flagyl x1 02/05 Assessment: Septic shock 2ry to GPC bacteremia- 2ry to line infection- r/o endocarditis- s/ p R tunned HD cath removal 02/26(pus expressed) -Bcx 02/25 06/27 GPC clusters (ID and sensi pending)- r/o MRSA -CXR: Vascular and interstitial prominence demonstrated with cardiomegaly Acute respiratory failure s/p intubation- 2ry to Sepsis and CHF Hyperleukocytosis, worsening- likely 2ry to above FEver- improving Troponinemia, worsening Thrombocytopenia, worsening Hx of Cdiff- unclear when and tx -No BM here, has abd pain- will get Abd xray to r/o toxic megacolon HTN, chronic dCHF, CKD, HLD HUS, ESRD on HD T//S, muscle wasting/atrophy, [facility] Plan: -Continue IV Vancomycin for GPC bacteremia and give Daptomycin x1 (to achieve therapeutic levels quicker) -Continue IV Amikacin for now pending cx -may d/c tomorrow if no gram neg growth -Repeat 2 sets of Bcx and from HD cath -Abd xray -Ok for placement of temporary HD cath for HD -Please await at least 48-72hrs of repeat negative Bcx for placement of a permanent HD catheter -2d Echo, may need DORIS -f/u cx -Monitor CBC/BMP, temperatures Thank you for this consultation. Will continue to follow along with you. Discussed with RN and Dr Cason. Anamaria Davalos M.D. Feb 26, 2017 10:08
[2017-02-26 10:10] LABS: MEAN PLATELET VOLUME 11.9 FL (6.5-10.1)
[2017-02-26 10:13] LABS: WHITE BLOOD COUNT 46.1 K/UL (4.8-10.8)
[2017-02-26 10:29] LABS: ANISOCYTOSIS 2+; BAND NEUTROPHILS % (MANUAL) 0 % (0-8); BASOPHILS % (MANUAL) 0 % (0-2); EOSINOPHILS % (MANUAL) 0 % (0-3); HYPOCHROMASIA 1+; LYMPHOCYTES % (MANUAL) 1 % (20-45); NEUTROPHILS % (MANUAL) 97 % (45-75); PLATELET ESTIMATE DECREASED; PLATELET MORPHOLOGY NORMAL; TOTAL CELLS COUNTED 100
--- NOTE | 2017-02-26 10:43 | Consultation ---
Consult Note Consult Note asked to evaluate for dialysis management 62-year-old female brought in from retirement for altered metal status and hypotension Per EMS normal mental status is alert and oriented x3 He should not providing history of present illness, lying in bed moaning repeatedly All information from paperwork from retirement History of muscle wasting, atrophy, hemolytic uremic syndrome anemia high blood pressure and chronic diastolic heart failure Also has chronic kidney disease Allergies: Coded Allergies: PENICILLINS (Verified Allergy, Unknown, 02/25/17) PIPERACILLIN (Verified Allergy, Unknown, 02/25/17) TAZOBACTAM (Verified Allergy, Unknown, 02/25/17) Hx Cardiac Problems: Yes - CHF; Anemia; High cholesterol Hx Hypertension: Yes Hx Dialysis: Yes - ; Hemolytic-uremic syndrome; CKD intubated in ICU on Pressors Examined Discussed with vp director of finance/Plan severe sepsis with shock acute hypoxemic respiratory failure requiring intubation acute toxic metabolic encephalopathy likely due to sepsis elevated troponin acute anemia requiring blood transfusion Pulmonary edema ESRD, on HD , has permacath left chest Hx of CHF Sever HypoAlbuminemia Plan: Hemodynamic support- Antibiotics HD as needed trial steroids- per orders Per orders JAQUELINE DEMPSEY Feb 26, 2017 10:42
[2017-02-26 10:49] LABS: ABG ALLEN TEST POSITIVE; ABG BASE EXCESS -4.3; ABG PCO2 30.5 mmHg (35.0-45.0)
[2017-02-26] MEDS ORDERED: Levophed 4mg/4mL Inj IV ONE (11:18)
[2017-02-26] MEDS: Norepinephrine Bitartrate 8 MG in D5W 500ml 550 ML IV SCH ×3 (11:26→23:05)
[2017-02-26] MEDS: Morphine Sulfate 4mg/ml Inj IVP PRN (11:50)
--- NOTE | 2017-02-26 11:56 | General Progress Note ---
Progress Note Progress Note Surgery: full consult note to follow. worsening sepsis. leukocytosis very high today. likely source seems to be right chest IJ tunneled catheter. catheter removed at bedside without complication. pus evacuated once catheter removed. sent for cultures. wound cleaned. dressings applied. will continue to monitor. Zac Rodriguez Feb 26, 2017 11:56
[2017-02-26 11:58] LABS: MAGNESIUM 1.4 MG/DL (1.8-2.4); PHOSPHORUS 2.5 MG/DL (2.5-4.9)
--- NOTE | 2017-02-26 12:21 | History and Physical ---
History of Present Illness General Date patient seen: Feb 26, 2017 Reason for Hospitalization: Altered Level of Consciousness Present Illness HPI 62-year-old female with hx of ESRF on HD, muscle wasting, atrophy, hemolytic uremic syndrome anemia high blood pressure and chronic diastolic heart failure [facility] for altered metal status and hypotension Pt was obtunded on arrival in ER. She needed to get intubated and transferred to ICU. She was diagnosed to have septic shock. Allergies: Coded Allergies: PENICILLINS (Verified Allergy, Unknown, 02/25/17) PIPERACILLIN (Verified Allergy, Unknown, 02/25/17) TAZOBACTAM (Verified Allergy, Unknown, 02/25/17) Medication History Scheduled Atorvastatin Calcium* (Lipitor*), 10 MG ORAL BEDTIME, (Reported) Folic Acid* (Folic Acid*), 1 MG ORAL DAILY, (Reported) Levothyroxine Sodium* (Levothyroxine Sodium*), 0.05 MG ORAL DAILY, (Reported) Losartan Potassium* (Losartan Potassium*), 25 MG ORAL DAILY, (Reported) Megestrol Acetate (Megestrol Acetate), 5 ML PO DAILY, (Reported) Metoprolol Tartrate* (Metoprolol Tartrate*), 75 MG ORAL EVERY 12 HOURS, ( Reported) Omeprazole (Omeprazole), 20 MG ORAL DAILY, (Reported) Vit B Cmplx 3/Fa/Vit C/Biotin (Nephro-Ghada Rx Tablet), 1 MG PO DAILY, (Reported) Scheduled PRN Acetaminophen With Codeine (T#3) (Tylenol #3 Tab*), 1 TAB ORAL Q6HR PRN for For Pain, (Reported) Acetaminophen* (Acetaminophen 325MG Tablet*), 325 MG ORAL Q6H PRN for For Pain Level <=5, (Reported) Loperamide Hcl (Loperamide), 2 MG PO Q6HR PRN for Diarrhea, (Reported) Metoclopramide Hcl* (Reglan*), 5 MG ORAL EVERY 8 HOURS PRN for Nausea & Vomiting , (Reported) Discontinued Medications Acetaminophen (Acetaminophen), 650 MG PO Q6HR PRN for Fever/Headache/Mild Pain, (Reported) Discontinued Reason: Prescription changed Albuterol Sulfate* (Albuterol Sulfate Mdi*), 1 PUFF INH Q4HR PRN for Shortness of Breath, (Reported) Discontinued Reason: Pt stopped taking med Metoclopramide Hcl* (Reglan*), 10 MG ORAL THREE TIMES A DAY PRN for Nausea & Vomiting, (Reported) Discontinued Reason: Pt stopped taking med Vitamin B Cmplx/Vit C/Folic AC (Nephro-Ghada Tablet), 1 TAB ORAL DAILY, (Reported ) Discontinued Reason: Pt stopped taking med Patient History Healthcare decision maker Resuscitation status Full Code Advanced Directive on File Past Medical/Surgical History Past Medical/Surgical History: (1) History of hypertension (2) Muscle wasting (3) CKD (chronic kidney disease) Review of Systems Constitutional: Reports: malaise, weakness Physical Exam General Appearance: cachetic Lines, tubes and drains: peripheral, dialysis access - right chest HEENT: normocephalic, atraumatic Neck: non-tender, normal alignment Respiratory/Chest: chest wall non-tender, lungs clear Breasts: no masses Cardiovascular/Chest: normal peripheral pulses, regular rhythm Genitourinary/Rectal: normal genital exam Extremities: normal range of motion, no calf tenderness Last 24 Hour Vital Signs Date Time Temp Pulse Resp B/P (MAP) Pulse Ox O2 Delivery O2 Flow Rate FiO2 02/26/17 11:34 120 02/26/17 11:26 96/46 02/26/17 10:34 83 17 30 02/26/17 09:10 85 16 30 02/26/17 08:09 95/36 02/26/17 08:00 30 02/26/17 07:24 133 17 30 02/26/17 07:15 128 16 96/54 100 Mechanical Ventilator 30 02/26/17 07:00 95/44 02/26/17 07:00 127 16 95/54 100 Mechanical Ventilator 30 02/26/17 06:45 126 17 92/65 95 Mechanical Ventilator 30 02/26/17 06:30 122 16 91/42 99 Mechanical Ventilator 30 02/26/17 06:15 127 16 107/56 100 Mechanical Ventilator 30 02/26/17 06:00 97/52 02/26/17 06:00 127 14 97/52 100 Mechanical Ventilator 30 02/26/17 05:45 126 16 93/60 100 Mechanical Ventilator 30 02/26/17 05:30 122 14 83/39 100 Mechanical Ventilator 30 02/26/17 05:26 126 16 30 02/26/17 05:15 124 15 100/40 100 Mechanical Ventilator 30 02/26/17 05:01 87/40 02/26/17 05:00 98.7 121 16 77/45 100 Mechanical Ventilator 30 02/26/17 04:45 118 16 87/40 100 Mechanical Ventilator 30 02/26/17 04:30 124 16 87/42 100 Mechanical Ventilator 30 02/26/17 04:15 118 16 87/41 100 Mechanical Ventilator 30 02/26/17 04:00 30 02/26/17 04:00 99.3 111 16 86/41 100 Mechanical Ventilator 30 02/26/17 04:00 87/40 02/26/17 04:00 85 02/26/17 03:45 106 14 86/41 98 Mechanical Ventilator 30 02/26/17 03:30 95 16 86/41 100 Mechanical Ventilator 30 02/26/17 03:21 84 16 30 02/26/17 03:15 84 16 87/37 100 Mechanical Ventilator 30 02/26/17 03:00 84 16 83/36 100 Mechanical Ventilator 30 02/26/17 03:00 83/36 02/26/17 02:45 86 16 87/40 100 Mechanical Ventilator 30 02/26/17 02:30 84 16 92/37 100 Mechanical Ventilator 30 02/26/17 02:15 83 16 77/37 100 Mechanical Ventilator 30 02/26/17 02:00 68/43 02/26/17 02:00 82 16 68/43 100 Mechanical Ventilator 30 02/26/17 01:45 82 16 75/43 100 Mechanical Ventilator 30 02/26/17 01:30 84 16 87/39 100 Mechanical Ventilator 30 02/26/17 01:25 84 16 30 02/26/17 01:15 99 16 94/48 100 Mechanical Ventilator 30 02/26/17 01:04 87/29 02/26/17 01:00 83 16 94/38 100 Mechanical Ventilator 30 02/26/17 00:45 84 16 82/39 100 Mechanical Ventilator 30 02/26/17 00:30 92 16 97/40 100 Mechanical Ventilator 30 02/26/17 00:15 89 16 87/29 100 Mechanical Ventilator 30 02/26/17 00:00 30 02/26/17 00:00 98.4 91 16 91/40 100 Mechanical Ventilator 30 02/26/17 00:00 91/40 02/26/17 00:00 92 02/25/17 23:45 83 16 90/39 100 Mechanical Ventilator 30 02/25/17 23:30 81 16 91/38 100 Mechanical Ventilator 30 02/25/17 23:27 82 16 30 02/25/17 23:15 89 16 83/47 100 Mechanical Ventilator 30 02/25/17 23:00 83/47 02/25/17 23:00 86 16 84/40 100 Mechanical Ventilator 30 02/25/17 22:45 85 18 90/43 100 Mechanical Ventilator 30 02/25/17 22:30 86 16 81/41 100 Mechanical Ventilator 30 02/25/17 22:15 93 17 84/45 100 Mechanical Ventilator 30 02/25/17 22:00 84/40 02/25/17 22:00 90 16 84/40 100 Mechanical Ventilator 30 02/25/17 21:45 88 16 77/42 100 Mechanical Ventilator 30 02/25/17 21:30 93 18 81/40 100 Mechanical Ventilator 30 02/25/17 21:25 98 19 30 02/25/17 21:15 93 14 91/41 100 Mechanical Ventilator 30 02/25/17 21:00 91/44 02/25/17 21:00 83 19 91/44 100 Mechanical Ventilator 30 02/25/17 20:45 78 17 87/47 100 Mechanical Ventilator 30 02/25/17 20:30 81 12 89/41 100 Mechanical Ventilator 30 02/25/17 20:15 90 19 81/44 100 Mechanical Ventilator 30 02/25/17 20:10 83/45 02/25/17 20:00 97.5 90 16 80/39 100 Mechanical Ventilator 30 02/25/17 20:00 30 02/25/17 19:45 83 16 94/46 100 Mechanical Ventilator 30 02/25/17 19:30 97.5 91 19 105/51 100 Mechanical Ventilator 30 02/25/17 19:30 88 02/25/17 19:20 97 19 30 02/25/17 19:00 98 17 106/59 100 Mechanical Ventilator 30 02/25/17 17:03 101/61 02/25/17 16:55 90 17 30 02/25/17 16:45 94/52 02/25/17 16:20 106/54 02/25/17 16:01 108/61 02/25/17 15:45 114/60 02/25/17 15:35 93 17 30 02/25/17 15:02 111/58 02/25/17 13:31 105/57 02/25/17 13:30 97.5 121 17 105/51 100 Room Air 2.0 30 91 02/25/17 13:11 84/51 02/25/17 13:11 80/48 02/25/17 12:45 97.5 115 17 02/25/17 12:38 105 18 30 02/25/17 12:30 97.5 108 17 Intake and Output 02/26/17 02/27/17 19:00 07:00 Output Total 0 ml Balance 0 ml Output Urine Total 0 ml Laboratory Tests Test 02/25/17 14:00 02/26/17 02:00 02/26/17 05:45 02/26/17 09:30 Arterial Blood pH 7.380 (7.350-7.450) Arterial Blood Partial Pressure CO2 41.6 mmHg (35.0-45.0) Arterial Blood Partial Pressure O2 567.5 mmHg (75.0-100.0) H Arterial Blood HCO3 24.4 mmol/L (22.0-26.0) Arterial Blood Oxygen Saturation 99.3 % (92.0-98.0) H Arterial Blood Base Excess -0.6 Farhan Test Positive Troponin I 3.763 ng/mL (0.000-0.056) 6.123 ng/mL (0.000-0.056) Sodium Level 136 MMOL/L (136-145) Potassium Level 4.3 MMOL/L (3.5-5.1) Chloride Level 105 MMOL/L (98-107) Carbon Dioxide Level 21 MMOL/L (21-32) Anion Gap 11 mmol/L (5-15) Blood Urea Nitrogen 39 mg/dL (7-18) H Creatinine 2.7 MG/DL (0.55-1.30) H Estimat Glomerular Filtration Rate 17.9 mL/min (>60) Glucose Level 124 MG/DL (74-106) H Calcium Level 7.0 MG/DL (8.5-10.1) L Total Bilirubin 1.9 MG/DL (0.2-1.0) H Direct Bilirubin 0.7 MG/DL (0.0-0.3) H Aspartate Amino Transf (AST/SGOT) 54 U/L (15-37) H Alanine Aminotransferase (ALT/SGPT) 9 U/L (12-78) L Alkaline Phosphatase 231 U/L (46-116) H Total Protein 5.2 G/DL (6.4-8.2) L Albumin 1.3 G/DL (3.4-5.0) L Globulin 3.9 g/dL Albumin/Globulin Ratio 0.3 (1.0-2.7) L Random Amikacin Level Pending Random Vancomycin Level 11.5 ug/mL White Blood Count 46.1 K/UL (4.8-10.8) #*H Red Blood Count 4.13 M/UL (4.20-5.40) L Hemoglobin 11.7 G/DL (12.0-16.0) #L Hematocrit 36.0 % (37.0-47.0) #L Mean Corpuscular Volume 87 FL (80-99) Mean Corpuscular Hemoglobin 28.3 PG (27.0-31.0) Mean Corpuscular Hemoglobin Concent 32.4 G/DL (32.0-36.0) Red Cell Distribution Width 18.0 % (11.6-14.8) H Platelet Count 59 K/UL (150-450) L Mean Platelet Volume 11.9 FL (6.5-10.1) H Neutrophils (%) (Auto) % (45.0-75.0) Lymphocytes (%) (Auto) % (20.0-45.0) Monocytes (%) (Auto) % (1.0-10.0) Eosinophils (%) (Auto) % (0.0-3.0) Basophils (%) (Auto) % (0.0-2.0) Differential Total Cells Counted 100 Neutrophils % (Manual) 97 % (45-75) H Lymphocytes % (Manual) 1 % (20-45) L Monocytes % (Manual) 2 % (1-10) Eosinophils % (Manual) 0 % (0-3) Basophils % (Manual) 0 % (0-2) Band Neutrophils 0 % (0-8) Platelet Estimate Decreased L Platelet Morphology Normal Hypochromasia 1+ Anisocytosis 2+ Test 02/26/17 10:42 02/26/17 11:10 Arterial Blood pH 7.417 (7.350-7.450) Arterial Blood Partial Pressure CO2 30.5 mmHg (35.0-45.0) L Arterial Blood Partial Pressure O2 114.9 mmHg (75.0-100.0) H Arterial Blood HCO3 19.2 mmol/L (22.0-26.0) L Arterial Blood Oxygen Saturation 98.1 % (92.0-98.0) H Arterial Blood Base Excess -4.3 Farhan Test Positive Phosphorus Level 2.5 MG/DL (2.5-4.9) Magnesium Level 1.4 MG/DL (1.8-2.4) L Gamma Glutamyl Transpeptidase 63 U/L (5-85) Total Creatine Kinase 136 U/L (26-308) C-Reactive Protein, Quantitative Pending Pro-B-Type Natriuretic Peptide Pending Thyroid Stimulating Hormone (TSH) 2.951 uiU/mL (0.358-3.740) Microbiology Date/Time Source Procedure Growth Status 02/25/17 19:45 Nasal Nares Influenza Types A,B Antigen (YANY) - Final Complete Height (Feet): 5 Height (Inches): 7.00 Weight (Pounds): 156 Medications Current Medications Medications (Trade) Dose Ordered Sig/Nina Route PRN Reason Start Time Stop Time Status Last Admin Dose Admin Acetaminophen (Tylenol) 650 mg Q4H PRN ORAL fever 02/25/17 15:15 03/27/17 15:14 Albuterol/ Ipratropium (Albuterol/ Ipratropium) 3 ml Q4H PRN HHN Shortness of Breath 02/25/17 15:15 03/02/17 15:14 Amikacin Sulfate 1000 mg/Sodium Chloride 114 ml @ 114 mls/hr Q48H IV 02/25/17 18:00 03/04/17 17:59 Chlorhexidine Gluconate (Poonam-Hex 2%) 1 applic DAILY TOPIC 02/26/17 09:00 03/28/17 08:59 02/26/17 09:21 Daptomycin 450 mg/ Sodium Chloride 55 ml @ 100 mls/hr Q24H ONCE IV 02/26/17 13:00 02/26/17 13:32 Heparin Sodium (Porcine) (Heparin 5000 units/ml) 5,000 units EVERY 12 HOURS SUBQ 02/25/17 21:00 03/27/17 20:59 Hydrocortisone (Solu-CORTEF) 100 mg EVERY 8 HOURS IV 02/26/17 14:00 02/28/17 06:01 Levothyroxine Sodium (Synthroid) 50 mcg ACBREAKFAST ORAL 02/26/17 06:30 03/28/17 06:29 02/26/17 06:01 Lorazepam (Ativan 2mg/ml 1ml) 2 mg Q2H PRN IV For Anxiety 02/25/17 15:15 03/04/17 15:14 Morphine Sulfate (Morphine Sulfate) 4 mg Q4H PRN IVP Severe Pain (Pain Scale 7-10) 02/25/17 15:15 03/04/17 15:14 02/26/17 11:50 Norepinephrine Bitartrate 8 mg/ Dextrose 558 ml @ 0 mls/hr Q24H IV 02/26/17 11:15 03/28/17 11:14 02/26/17 11:26 Ondansetron HCl (Zofran) 4 mg Q6H PRN IVP Nausea & Vomiting 02/25/17 15:15 03/27/17 15:14 Pantoprazole (Protonix) 40 mg DAILY IVP 02/26/17 09:00 03/28/17 08:59 02/26/17 09:22 Polyethylene Glycol (Miralax) 17 gm DAILYPRN PRN ORAL Constipation 02/25/17 15:15 03/27/17 15:14 Sodium Chloride 1,000 ml @ 100 mls/hr Q10H IVLG 02/25/17 16:45 03/27/17 16:44 02/26/17 06:01 Vancomycin HCl (Vanco rx to dose) 1 ea DAILY PRN MISC RX TO DOSE 02/26/17 07:15 03/28/17 07:14 Assessment/Plan Problem List: (1) Septic shock ICD Codes: A41.9 - Sepsis, unspecified organism; R65.21 - Severe sepsis with septic shock SNOMED: 68717441 (2) Respiratory failure, acute ICD Codes: J96.00 - Acute respiratory failure, unspecified whether with hypoxia or hypercapnia SNOMED: 12838365 (3) Elevated troponin I level ICD Codes: R74.8 - Abnormal levels of other serum enzymes SNOMED: 681947108 (4) Altered level of consciousness ICD Codes: R40.4 - Transient alteration of awareness SNOMED: 0355765 (5) Hypotension ICD Codes: I95.9 - Hypotension, unspecified SNOMED: 67019749 Qualifiers: Qualified Codes: I95.9 - Hypotension, unspecified (6) ESRF (end stage renal failure) ICD Codes: N18.6 - End stage renal disease SNOMED: 58999951 (7) History of hypertension ICD Codes: Z86.79 - Personal history of other diseases of the circulatory system SNOMED: 952768246 (8) Muscle wasting ICD Codes: M62.50 - Muscle wasting and atrophy, not elsewhere classified, unspecified site SNOMED: 31537122 Respiratory: monitor respiratory rate, adjust FIO2, CXR Cardiac: continue to monitor HR/BP Renal: F/U I&O, keep IV fluid Infectious Disease: check cultures Gastrointestinal: continue feedings/current rate Endocrine: monitor blood sugar, check HgA1C Hematologic: monitor H/H, transfuse if hgb<8.5 Neurologic: PRN Ativan, PRN Morphine, keep patient comfortable Notes Reviewed: systems designer, cardio Discussed with: nurses, consultants BHAVIN PARKER Feb 26, 2017 12:21
--- NOTE | 2017-02-26 12:27 | Cardiac Electrophysiology PN ---
Subjective Subjective [id number] Objective Last 24 Hour Vital Signs Date Time Temp Pulse Resp B/P (MAP) Pulse Ox O2 Delivery O2 Flow Rate FiO2 02/26/17 11:34 120 02/26/17 11:26 96/46 02/26/17 10:34 83 17 30 02/26/17 09:10 85 16 30 02/26/17 08:09 95/36 02/26/17 08:00 30 02/26/17 07:24 133 17 30 02/26/17 07:15 128 16 96/54 100 Mechanical Ventilator 30 02/26/17 07:00 95/44 02/26/17 07:00 127 16 95/54 100 Mechanical Ventilator 30 02/26/17 06:45 126 17 92/65 95 Mechanical Ventilator 30 02/26/17 06:30 122 16 91/42 99 Mechanical Ventilator 30 02/26/17 06:15 127 16 107/56 100 Mechanical Ventilator 30 02/26/17 06:00 97/52 02/26/17 06:00 127 14 97/52 100 Mechanical Ventilator 30 02/26/17 05:45 126 16 93/60 100 Mechanical Ventilator 30 02/26/17 05:30 122 14 83/39 100 Mechanical Ventilator 30 02/26/17 05:26 126 16 30 02/26/17 05:15 124 15 100/40 100 Mechanical Ventilator 30 02/26/17 05:01 87/40 02/26/17 05:00 98.7 121 16 77/45 100 Mechanical Ventilator 30 02/26/17 04:45 118 16 87/40 100 Mechanical Ventilator 30 02/26/17 04:30 124 16 87/42 100 Mechanical Ventilator 30 02/26/17 04:15 118 16 87/41 100 Mechanical Ventilator 30 02/26/17 04:00 30 02/26/17 04:00 99.3 111 16 86/41 100 Mechanical Ventilator 30 02/26/17 04:00 87/40 02/26/17 04:00 85 02/26/17 03:45 106 14 86/41 98 Mechanical Ventilator 30 02/26/17 03:30 95 16 86/41 100 Mechanical Ventilator 30 02/26/17 03:21 84 16 30 02/26/17 03:15 84 16 87/37 100 Mechanical Ventilator 30 02/26/17 03:00 84 16 83/36 100 Mechanical Ventilator 30 02/26/17 03:00 83/36 02/26/17 02:45 86 16 87/40 100 Mechanical Ventilator 30 02/26/17 02:30 84 16 92/37 100 Mechanical Ventilator 30 02/26/17 02:15 83 16 77/37 100 Mechanical Ventilator 30 02/26/17 02:00 68/43 02/26/17 02:00 82 16 68/43 100 Mechanical Ventilator 30 02/26/17 01:45 82 16 75/43 100 Mechanical Ventilator 30 02/26/17 01:30 84 16 87/39 100 Mechanical Ventilator 30 02/26/17 01:25 84 16 30 02/26/17 01:15 99 16 94/48 100 Mechanical Ventilator 30 02/26/17 01:04 87/29 02/26/17 01:00 83 16 94/38 100 Mechanical Ventilator 30 02/26/17 00:45 84 16 82/39 100 Mechanical Ventilator 30 02/26/17 00:30 92 16 97/40 100 Mechanical Ventilator 30 02/26/17 00:15 89 16 87/29 100 Mechanical Ventilator 30 02/26/17 00:00 30 02/26/17 00:00 98.4 91 16 91/40 100 Mechanical Ventilator 30 02/26/17 00:00 91/40 02/26/17 00:00 92 02/25/17 23:45 83 16 90/39 100 Mechanical Ventilator 30 02/25/17 23:30 81 16 91/38 100 Mechanical Ventilator 30 02/25/17 23:27 82 16 30 02/25/17 23:15 89 16 83/47 100 Mechanical Ventilator 30 02/25/17 23:00 83/47 02/25/17 23:00 86 16 84/40 100 Mechanical Ventilator 30 02/25/17 22:45 85 18 90/43 100 Mechanical Ventilator 30 02/25/17 22:30 86 16 81/41 100 Mechanical Ventilator 30 02/25/17 22:15 93 17 84/45 100 Mechanical Ventilator 30 02/25/17 22:00 84/40 02/25/17 22:00 90 16 84/40 100 Mechanical Ventilator 30 02/25/17 21:45 88 16 77/42 100 Mechanical Ventilator 30 02/25/17 21:30 93 18 81/40 100 Mechanical Ventilator 30 02/25/17 21:25 98 19 30 02/25/17 21:15 93 14 91/41 100 Mechanical Ventilator 30 02/25/17 21:00 91/44 02/25/17 21:00 83 19 91/44 100 Mechanical Ventilator 30 02/25/17 20:45 78 17 87/47 100 Mechanical Ventilator 30 02/25/17 20:30 81 12 89/41 100 Mechanical Ventilator 30 02/25/17 20:15 90 19 81/44 100 Mechanical Ventilator 30 02/25/17 20:10 83/45 02/25/17 20:00 97.5 90 16 80/39 100 Mechanical Ventilator 30 02/25/17 20:00 30 02/25/17 19:45 83 16 94/46 100 Mechanical Ventilator 30 02/25/17 19:30 97.5 91 19 105/51 100 Mechanical Ventilator 30 02/25/17 19:30 88 02/25/17 19:20 97 19 30 02/25/17 19:00 98 17 106/59 100 Mechanical Ventilator 30 02/25/17 17:03 101/61 02/25/17 16:55 90 17 30 02/25/17 16:45 94/52 02/25/17 16:20 106/54 02/25/17 16:01 108/61 02/25/17 15:45 114/60 02/25/17 15:35 93 17 30 02/25/17 15:02 111/58 02/25/17 13:31 105/57 02/25/17 13:30 97.5 121 17 105/51 100 Room Air 2.0 30 91 02/25/17 13:11 84/51 02/25/17 13:11 80/48 02/25/17 12:45 97.5 115 17 02/25/17 12:38 105 18 30 02/25/17 12:30 97.5 108 17 Intake and Output 02/26/17 02/27/17 19:00 07:00 Output Total 0 ml Balance 0 ml Output Urine Total 0 ml Laboratory Tests Test 02/25/17 14:00 02/26/17 02:00 02/26/17 05:45 02/26/17 09:30 Arterial Blood pH 7.380 (7.350-7.450) Arterial Blood Partial Pressure CO2 41.6 mmHg (35.0-45.0) Arterial Blood Partial Pressure O2 567.5 mmHg (75.0-100.0) H Arterial Blood HCO3 24.4 mmol/L (22.0-26.0) Arterial Blood Oxygen Saturation 99.3 % (92.0-98.0) H Arterial Blood Base Excess -0.6 Farhan Test Positive Troponin I 3.763 ng/mL (0.000-0.056) 6.123 ng/mL (0.000-0.056) Sodium Level 136 MMOL/L (136-145) Potassium Level 4.3 MMOL/L (3.5-5.1) Chloride Level 105 MMOL/L (98-107) Carbon Dioxide Level 21 MMOL/L (21-32) Anion Gap 11 mmol/L (5-15) Blood Urea Nitrogen 39 mg/dL (7-18) H Creatinine 2.7 MG/DL (0.55-1.30) H Estimat Glomerular Filtration Rate 17.9 mL/min (>60) Glucose Level 124 MG/DL (74-106) H Calcium Level 7.0 MG/DL (8.5-10.1) L Total Bilirubin 1.9 MG/DL (0.2-1.0) H Direct Bilirubin 0.7 MG/DL (0.0-0.3) H Aspartate Amino Transf (AST/SGOT) 54 U/L (15-37) H Alanine Aminotransferase (ALT/SGPT) 9 U/L (12-78) L Alkaline Phosphatase 231 U/L (46-116) H Total Protein 5.2 G/DL (6.4-8.2) L Albumin 1.3 G/DL (3.4-5.0) L Globulin 3.9 g/dL Albumin/Globulin Ratio 0.3 (1.0-2.7) L Random Amikacin Level Pending Random Vancomycin Level 11.5 ug/mL White Blood Count 46.1 K/UL (4.8-10.8) #*H Red Blood Count 4.13 M/UL (4.20-5.40) L Hemoglobin 11.7 G/DL (12.0-16.0) #L Hematocrit 36.0 % (37.0-47.0) #L Mean Corpuscular Volume 87 FL (80-99) Mean Corpuscular Hemoglobin 28.3 PG (27.0-31.0) Mean Corpuscular Hemoglobin Concent 32.4 G/DL (32.0-36.0) Red Cell Distribution Width 18.0 % (11.6-14.8) H Platelet Count 59 K/UL (150-450) L Mean Platelet Volume 11.9 FL (6.5-10.1) H Neutrophils (%) (Auto) % (45.0-75.0) Lymphocytes (%) (Auto) % (20.0-45.0) Monocytes (%) (Auto) % (1.0-10.0) Eosinophils (%) (Auto) % (0.0-3.0) Basophils (%) (Auto) % (0.0-2.0) Differential Total Cells Counted 100 Neutrophils % (Manual) 97 % (45-75) H Lymphocytes % (Manual) 1 % (20-45) L Monocytes % (Manual) 2 % (1-10) Eosinophils % (Manual) 0 % (0-3) Basophils % (Manual) 0 % (0-2) Band Neutrophils 0 % (0-8) Platelet Estimate Decreased L Platelet Morphology Normal Hypochromasia 1+ Anisocytosis 2+ Test 02/26/17 10:42 02/26/17 11:10 Arterial Blood pH 7.417 (7.350-7.450) Arterial Blood Partial Pressure CO2 30.5 mmHg (35.0-45.0) L Arterial Blood Partial Pressure O2 114.9 mmHg (75.0-100.0) H Arterial Blood HCO3 19.2 mmol/L (22.0-26.0) L Arterial Blood Oxygen Saturation 98.1 % (92.0-98.0) H Arterial Blood Base Excess -4.3 Farhan Test Positive Phosphorus Level 2.5 MG/DL (2.5-4.9) Magnesium Level 1.4 MG/DL (1.8-2.4) L Gamma Glutamyl Transpeptidase 63 U/L (5-85) Total Creatine Kinase 136 U/L (26-308) C-Reactive Protein, Quantitative Pending Pro-B-Type Natriuretic Peptide Pending Thyroid Stimulating Hormone (TSH) 2.951 uiU/mL (0.358-3.740) Microbiology Date/Time Source Procedure Growth Status 02/25/17 09:45 Blood Blood Culture - Preliminary Resulted 02/25/17 09:45 Blood Blood Culture - Preliminary Resulted 02/25/17 19:45 Nasal Nares Influenza Types A,B Antigen (YANY) - Final Complete LOIS ELLISON Feb 26, 2017 12:27
[2017-02-26] MEDS ORDERED: DAPTOmycin 450 MG in NS 55 ML IV ONE (13:00)
[2017-02-26] MEDS: Hydrocortisone 100mg Inj IV SCH ×2 (14:37→21:41)
--- NOTE | 2017-02-26 15:52 | Diagnostic Imaging Report ---
Indication: Abdominal distention Technique: Supine view of the abdomen Comparison: none Findings: There is a nasogastric tube in place, tip projected in good position at the level gastric body. Single prominent gas-filled bowel loop is seen in the midabdomen, probably transverse colon, appearance nonspecific. Vascular embolic coils are seen projected in the midabdomen to the left of midline. A central venous catheter is seen with its tip in the high right atrium. Impression: Findings as noted. No definite acute process
--- NOTE | 2017-02-26 16:30 | Consultation ---
DATE OF CONSULTATION: 02/26/2017 CARDIOLOGY CONSULTATION CONSULTING PHYSICIAN: Hermelindo Pennington M.D. REFERRING PHYSICIAN: Marcos Cason M.D. REASON FOR CONSULTATION: Elevated troponin as well as possible endocarditis. HISTORY OF PRESENT ILLNESS: The patient is a 62-year-old lady with history of hypertension; end-stage renal disease, on hemodialysis, was [facility] from [facility] for hypotension and altered mental status. The patient was found to be in septic shock and was transferred to intensive care unit and was started on IV pressors as well as intubated. The patient's initial troponin was mildly elevated, was increase to more than 6 this morning. The patient also underwent an echocardiogram with the report suggestive of posterior mitral leaflet calcification, severe pulmonary regurgitation, but cannot rule out vegetation. REVIEW OF SYSTEMS: Cannot be obtained. PAST MEDICAL HISTORY: 1. Hypertension. 2. End-stage renal disease, on hemodialysis. 3. Hyperlipidemia. 4. Anemia, status post blood transfusion. FAMILY HISTORY: Noncontributory. PHYSICAL EXAMINATION: VITAL SIGNS: Blood pressure is 94/46, pulse 120, and respirations 16. HEAD AND NECK: Shows no JVD. She is orally intubated. LUNGS: Decreased breath sounds. CARDIOVASCULAR: Shows regular S1 and S2 with no gallop. ABDOMEN: Soft. EXTREMITIES: No pitting edema. LABORATORY DATA: Her labs show white count of 46.1; hemoglobin initially was 7.4, increased to 11.7 after blood transfusion; and platelet count is 59. Sodium 133, potassium 4.3, BUN of 39, creatinine is 2.7, and glucose of 124. ASSESSMENT AND PLAN: 1. Elevated troponin. Troponin increased from 1 to 3.7 and then to 6.213. This is likely due to demand ischemia in this patient with septic shock, possible bacteremia and possible endocarditis. The patient is not a candidate for anticoagulation with heparin in view of severe anemia requiring blood transfusion as well as severe thrombocytopenia with platelet count of 50,000. Her EKG also showed sinus rhythm with nonspecific ST-T wave abnormality with no ST elevation. Obviously cannot give beta-mathieu in view of hypotension. 2. Bacteremia and echogenic material on the posterior mitral leaflet that cannot exclude vegetation. We will consider DORIS as needed, but at this time, we will continue IV antibiotics as the patient is not stable. 3. Severe pulmonary regurgitation with PA pressure of 53. 4. Septic shock, on Levophed and IV antibiotic per Dr. Cason. 5. Respiratory failure, currently on the ventilator. 6. End-stage renal disease. The PermCath was removed as it was probably the source of infection. Again, the patient remains on IV antibiotics. 7. Severe anemia, status post blood transfusion. Thank you very much, Dr. Cason, for allowing me to participate in the care of this patient. Please do not hesitate to contact me for any questions regarding my evaluation. Hermelindo Pennington M.D. DR: Dandre JOB#: [id number] CC:
[2017-02-26] MEDS: Vancomycin oral 125mg/2.5ml NG SCH (17:07)
--- NOTE | 2017-02-26 18:27 | Consultation ---
History of Present Illness General Date patient seen: Feb 26, 2017 Chief Complaint: Altered Level of Consciousness Reason for Consultation: infected right central venous catheter Present Illness HPI 62 year old female with multiple medical comorbidities as noted below presented from [facility] with altered mental status and hypotension. Noted to be in septic shock and transferred to ICU for care. during work up was found to have possibly infected right IJ tunneled central venous catheter. Surgery called to evaluate and safely remove catheter. Allergies: Coded Allergies: PENICILLINS (Verified Allergy, Unknown, 02/25/17) PIPERACILLIN (Verified Allergy, Unknown, 02/25/17) TAZOBACTAM (Verified Allergy, Unknown, 02/25/17) Medication History Scheduled Atorvastatin Calcium* (Lipitor*), 10 MG ORAL BEDTIME, (Reported) Folic Acid* (Folic Acid*), 1 MG ORAL DAILY, (Reported) Levothyroxine Sodium* (Levothyroxine Sodium*), 0.05 MG ORAL DAILY, (Reported) Losartan Potassium* (Losartan Potassium*), 25 MG ORAL DAILY, (Reported) Megestrol Acetate (Megestrol Acetate), 5 ML PO DAILY, (Reported) Metoprolol Tartrate* (Metoprolol Tartrate*), 75 MG ORAL EVERY 12 HOURS, ( Reported) Omeprazole (Omeprazole), 20 MG ORAL DAILY, (Reported) Vit B Cmplx 3/Fa/Vit C/Biotin (Nephro-Ghada Rx Tablet), 1 MG PO DAILY, (Reported) Scheduled PRN Acetaminophen With Codeine (T#3) (Tylenol #3 Tab*), 1 TAB ORAL Q6HR PRN for For Pain, (Reported) Acetaminophen* (Acetaminophen 325MG Tablet*), 325 MG ORAL Q6H PRN for For Pain Level <=5, (Reported) Loperamide Hcl (Loperamide), 2 MG PO Q6HR PRN for Diarrhea, (Reported) Metoclopramide Hcl* (Reglan*), 5 MG ORAL EVERY 8 HOURS PRN for Nausea & Vomiting , (Reported) Discontinued Medications Acetaminophen (Acetaminophen), 650 MG PO Q6HR PRN for Fever/Headache/Mild Pain, (Reported) Discontinued Reason: Prescription changed Albuterol Sulfate* (Albuterol Sulfate Mdi*), 1 PUFF INH Q4HR PRN for Shortness of Breath, (Reported) Discontinued Reason: Pt stopped taking med Metoclopramide Hcl* (Reglan*), 10 MG ORAL THREE TIMES A DAY PRN for Nausea & Vomiting, (Reported) Discontinued Reason: Pt stopped taking med Vitamin B Cmplx/Vit C/Folic AC (Nephro-Ghada Tablet), 1 TAB ORAL DAILY, (Reported ) Discontinued Reason: Pt stopped taking med Patient History Limited by: medical condition History Provided By: Medical Record Healthcare decision maker Resuscitation status Full Code Advanced Directive on File Past Medical/Surgical History Past Medical/Surgical History: (1) Anemia (2) Hypotension (3) CKD (chronic kidney disease) (4) Sepsis (5) Altered level of consciousness (6) Pneumonia (7) Muscle wasting (8) History of hypertension (9) Septic shock (10) Respiratory failure, acute (11) ESRF (end stage renal failure) (12) Elevated troponin I level Review of Systems ROS Narrative cannot obtain given patients current mental status and condition Physical Exam General Appearance: mild distress Lines, tubes and drains: central line, other - right IJ triple lumen catheter clean. right IJ tunneled chest wall permacath with mild drainage from insertion site HEENT: atraumatic Neck: normal inspection Respiratory/Chest: no respiratory distress, no accessory muscle use, on vent Cardiovascular/Chest: normal peripheral pulses Abdomen: soft, no organomegaly, no mass Extremities: normal inspection Skin Exam: normal pigmentation Neurologic: unresponsiveness Last 24 Hour Vital Signs Date Time Temp Pulse Resp B/P (MAP) Pulse Ox O2 Delivery O2 Flow Rate FiO2 02/26/17 17:51 63/38 02/26/17 17:45 92 16 113/38 99 Mechanical Ventilator 30 02/26/17 17:30 86 16 113/41 100 Mechanical Ventilator 30 02/26/17 17:15 85 14 110/35 100 Mechanical Ventilator 30 02/26/17 17:00 84 10 107/40 100 Mechanical Ventilator 30 02/26/17 16:45 85 16 103/38 100 Mechanical Ventilator 30 02/26/17 16:44 84 18 30 02/26/17 16:30 86 16 107/48 99 Mechanical Ventilator 30 02/26/17 16:15 119 16 115/50 96 Mechanical Ventilator 30 02/26/17 16:00 134 11 111/78 93 Mechanical Ventilator 30 02/26/17 16:00 30 02/26/17 16:00 86 02/26/17 15:45 89 16 104/40 99 Mechanical Ventilator 30 02/26/17 15:30 87 16 104/39 97 Mechanical Ventilator 30 02/26/17 15:15 88 16 106/51 97 Mechanical Ventilator 30 02/26/17 15:00 88 16 108/36 100 Mechanical Ventilator 30 02/26/17 14:48 85 15 30 02/26/17 14:45 88 16 104/36 99 Mechanical Ventilator 30 02/26/17 14:30 86 16 103/35 99 Mechanical Ventilator 30 02/26/17 14:15 89 16 98/39 98 Mechanical Ventilator 30 02/26/17 14:00 87 16 99/34 97 Mechanical Ventilator 30 02/26/17 13:45 87 16 98/31 97 Mechanical Ventilator 30 02/26/17 13:30 87 16 95/40 97 Mechanical Ventilator 30 02/26/17 13:15 87 16 97/39 100 Mechanical Ventilator 30 02/26/17 13:00 86 16 101/40 100 Mechanical Ventilator 30 02/26/17 12:45 86 16 89/44 100 Mechanical Ventilator 30 02/26/17 12:40 81 16 30 02/26/17 12:30 89 16 89/44 100 Mechanical Ventilator 30 02/26/17 12:15 88 16 88/47 100 Mechanical Ventilator 30 02/26/17 12:00 87 02/26/17 12:00 98.3 87 16 87/50 100 Mechanical Ventilator 30 02/26/17 12:00 30 02/26/17 11:45 87 16 90/45 100 Mechanical Ventilator 30 02/26/17 11:34 120 02/26/17 11:30 85 17 100/43 100 Mechanical Ventilator 30 02/26/17 11:26 96/46 02/26/17 11:15 85 16 96/46 100 Mechanical Ventilator 30 02/26/17 11:00 85 16 103/37 100 Mechanical Ventilator 30 02/26/17 10:45 84 16 91/47 100 Mechanical Ventilator 30 02/26/17 10:34 83 17 30 02/26/17 10:30 85 17 103/35 100 Mechanical Ventilator 30 02/26/17 10:15 85 16 106/35 100 Mechanical Ventilator 30 02/26/17 10:00 86 17 106/41 100 Mechanical Ventilator 30 02/26/17 09:45 86 17 106/36 100 Mechanical Ventilator 30 02/26/17 09:30 88 17 99/35 100 Mechanical Ventilator 30 02/26/17 09:15 88 16 103/48 100 Mechanical Ventilator 30 02/26/17 09:10 85 16 30 02/26/17 09:00 88 17 160/55 100 Mechanical Ventilator 30 02/26/17 08:45 88 17 96/37 100 Mechanical Ventilator 30 02/26/17 08:30 88 17 103/61 100 Mechanical Ventilator 30 02/26/17 08:15 88 17 101/34 100 Mechanical Ventilator 30 02/26/17 08:09 95/36 02/26/17 08:00 30 02/26/17 08:00 87 16 95/36 100 Mechanical Ventilator 30 02/26/17 07:45 88 17 98/69 100 Mechanical Ventilator 30 02/26/17 07:30 98.5 129 16 96/64 100 Mechanical Ventilator 30 02/26/17 07:24 133 17 30 02/26/17 07:15 128 16 96/54 100 Mechanical Ventilator 30 02/26/17 07:00 95/44 02/26/17 07:00 127 16 95/54 100 Mechanical Ventilator 30 02/26/17 06:45 126 17 92/65 95 Mechanical Ventilator 30 02/26/17 06:30 122 16 91/42 99 Mechanical Ventilator 30 02/26/17 06:15 127 16 107/56 100 Mechanical Ventilator 30 02/26/17 06:00 97/52 02/26/17 06:00 127 14 97/52 100 Mechanical Ventilator 30 02/26/17 05:45 126 16 93/60 100 Mechanical Ventilator 30 02/26/17 05:30 122 14 83/39 100 Mechanical Ventilator 30 02/26/17 05:26 126 16 30 02/26/17 05:15 124 15 100/40 100 Mechanical Ventilator 30 02/26/17 05:01 87/40 02/26/17 05:00 98.7 121 16 77/45 100 Mechanical Ventilator 30 02/26/17 04:45 118 16 87/40 100 Mechanical Ventilator 30 02/26/17 04:30 124 16 87/42 100 Mechanical Ventilator 30 02/26/17 04:15 118 16 87/41 100 Mechanical Ventilator 30 02/26/17 04:00 30 02/26/17 04:00 99.3 111 16 86/41 100 Mechanical Ventilator 30 02/26/17 04:00 87/40 02/26/17 04:00 85 02/26/17 03:45 106 14 86/41 98 Mechanical Ventilator 30 02/26/17 03:30 95 16 86/41 100 Mechanical Ventilator 30 02/26/17 03:21 84 16 30 02/26/17 03:15 84 16 87/37 100 Mechanical Ventilator 30 02/26/17 03:00 84 16 83/36 100 Mechanical Ventilator 30 02/26/17 03:00 83/36 02/26/17 02:45 86 16 87/40 100 Mechanical Ventilator 30 02/26/17 02:30 84 16 92/37 100 Mechanical Ventilator 30 02/26/17 02:15 83 16 77/37 100 Mechanical Ventilator 30 02/26/17 02:00 68/43 02/26/17 02:00 82 16 68/43 100 Mechanical Ventilator 30 02/26/17 01:45 82 16 75/43 100 Mechanical Ventilator 30 02/26/17 01:30 84 16 87/39 100 Mechanical Ventilator 30 02/26/17 01:25 84 16 30 02/26/17 01:15 99 16 94/48 100 Mechanical Ventilator 30 02/26/17 01:04 87/29 02/26/17 01:00 83 16 94/38 100 Mechanical Ventilator 30 02/26/17 00:45 84 16 82/39 100 Mechanical Ventilator 30 02/26/17 00:30 92 16 97/40 100 Mechanical Ventilator 30 02/26/17 00:15 89 16 87/29 100 Mechanical Ventilator 30 02/26/17 00:00 30 02/26/17 00:00 98.4 91 16 91/40 100 Mechanical Ventilator 30 02/26/17 00:00 91/40 02/26/17 00:00 92 02/25/17 23:45 83 16 90/39 100 Mechanical Ventilator 30 02/25/17 23:30 81 16 91/38 100 Mechanical Ventilator 30 02/25/17 23:27 82 16 30 02/25/17 23:15 89 16 83/47 100 Mechanical Ventilator 30 02/25/17 23:00 83/47 02/25/17 23:00 86 16 84/40 100 Mechanical Ventilator 30 02/25/17 22:45 85 18 90/43 100 Mechanical Ventilator 30 02/25/17 22:30 86 16 81/41 100 Mechanical Ventilator 30 02/25/17 22:15 93 17 84/45 100 Mechanical Ventilator 30 02/25/17 22:00 84/40 02/25/17 22:00 90 16 84/40 100 Mechanical Ventilator 30 02/25/17 21:45 88 16 77/42 100 Mechanical Ventilator 30 02/25/17 21:30 93 18 81/40 100 Mechanical Ventilator 30 02/25/17 21:25 98 19 30 02/25/17 21:15 93 14 91/41 100 Mechanical Ventilator 30 02/25/17 21:00 91/44 02/25/17 21:00 83 19 91/44 100 Mechanical Ventilator 30 02/25/17 20:45 78 17 87/47 100 Mechanical Ventilator 30 02/25/17 20:30 81 12 89/41 100 Mechanical Ventilator 30 02/25/17 20:15 90 19 81/44 100 Mechanical Ventilator 30 02/25/17 20:10 83/45 02/25/17 20:00 97.5 90 16 80/39 100 Mechanical Ventilator 30 02/25/17 20:00 30 02/25/17 19:45 83 16 94/46 100 Mechanical Ventilator 30 02/25/17 19:30 97.5 91 19 105/51 100 Mechanical Ventilator 30 02/25/17 19:30 88 02/25/17 19:20 97 19 30 02/25/17 19:00 98 17 106/59 100 Mechanical Ventilator 30 Intake and Output 02/26/17 02/27/17 19:00 07:00 Output Total 0 ml Balance 0 ml Output Urine Total 0 ml Laboratory Tests Test 02/25/17 18:55 02/26/17 02:00 02/26/17 05:45 02/26/17 09:30 Lab Scanned Report Blood Bank/Transfusion Troponin I 3.763 ng/mL (0.000-0.056) 6.123 ng/mL (0.000-0.056) Sodium Level 136 MMOL/L (136-145) Potassium Level 4.3 MMOL/L (3.5-5.1) Chloride Level 105 MMOL/L (98-107) Carbon Dioxide Level 21 MMOL/L (21-32) Anion Gap 11 mmol/L (5-15) Blood Urea Nitrogen 39 mg/dL (7-18) H Creatinine 2.7 MG/DL (0.55-1.30) H Estimat Glomerular Filtration Rate 17.9 mL/min (>60) Glucose Level 124 MG/DL (74-106) H Calcium Level 7.0 MG/DL (8.5-10.1) L Total Bilirubin 1.9 MG/DL (0.2-1.0) H Direct Bilirubin 0.7 MG/DL (0.0-0.3) H Aspartate Amino Transf (AST/SGOT) 54 U/L (15-37) H Alanine Aminotransferase (ALT/SGPT) 9 U/L (12-78) L Alkaline Phosphatase 231 U/L (46-116) H Total Protein 5.2 G/DL (6.4-8.2) L Albumin 1.3 G/DL (3.4-5.0) L Globulin 3.9 g/dL Albumin/Globulin Ratio 0.3 (1.0-2.7) L Random Amikacin Level 23.8 MG/L Random Vancomycin Level 11.5 ug/mL White Blood Count 46.1 K/UL (4.8-10.8) #*H Red Blood Count 4.13 M/UL (4.20-5.40) L Hemoglobin 11.7 G/DL (12.0-16.0) #L Hematocrit 36.0 % (37.0-47.0) #L Mean Corpuscular Volume 87 FL (80-99) Mean Corpuscular Hemoglobin 28.3 PG (27.0-31.0) Mean Corpuscular Hemoglobin Concent 32.4 G/DL (32.0-36.0) Red Cell Distribution Width 18.0 % (11.6-14.8) H Platelet Count 59 K/UL (150-450) L Mean Platelet Volume 11.9 FL (6.5-10.1) H Neutrophils (%) (Auto) % (45.0-75.0) Lymphocytes (%) (Auto) % (20.0-45.0) Monocytes (%) (Auto) % (1.0-10.0) Eosinophils (%) (Auto) % (0.0-3.0) Basophils (%) (Auto) % (0.0-2.0) Differential Total Cells Counted 100 Neutrophils % (Manual) 97 % (45-75) H Lymphocytes % (Manual) 1 % (20-45) L Monocytes % (Manual) 2 % (1-10) Eosinophils % (Manual) 0 % (0-3) Basophils % (Manual) 0 % (0-2) Band Neutrophils 0 % (0-8) Platelet Estimate Decreased L Platelet Morphology Normal Hypochromasia 1+ Anisocytosis 2+ Test 02/26/17 10:42 02/26/17 11:10 Arterial Blood pH 7.417 (7.350-7.450) Arterial Blood Partial Pressure CO2 30.5 mmHg (35.0-45.0) L Arterial Blood Partial Pressure O2 114.9 mmHg (75.0-100.0) H Arterial Blood HCO3 19.2 mmol/L (22.0-26.0) L Arterial Blood Oxygen Saturation 98.1 % (92.0-98.0) H Arterial Blood Base Excess -4.3 Farhan Test Positive Phosphorus Level 2.5 MG/DL (2.5-4.9) Magnesium Level 1.4 MG/DL (1.8-2.4) L Gamma Glutamyl Transpeptidase 63 U/L (5-85) Total Creatine Kinase 136 U/L (26-308) C-Reactive Protein, Quantitative 27.0 mg/dL (0.00-0.90) H Pro-B-Type Natriuretic Peptide > 68524 pg/mL (0-125) H Thyroid Stimulating Hormone (TSH) 2.951 uiU/mL (0.358-3.740) Microbiology Date/Time Source Procedure Growth Status 02/25/17 19:45 Nasal Nares Influenza Types A,B Antigen (YANY) - Final Complete 02/26/17 04:00 Sacral Wound Gram Stain - Final Resulted 02/26/17 04:00 Sacral Wound Wound Culture Pending Resulted Height (Feet): 5 Height (Inches): 7.00 Weight (Pounds): 156 Medications Current Medications Medications (Trade) Dose Ordered Sig/Nina Route PRN Reason Start Time Stop Time Status Last Admin Dose Admin Acetaminophen (Tylenol) 650 mg Q4H PRN ORAL fever 02/25/17 15:15 03/27/17 15:14 Albuterol/ Ipratropium (Albuterol/ Ipratropium) 3 ml Q4H PRN HHN Shortness of Breath 02/25/17 15:15 03/02/17 15:14 Amikacin Sulfate 1000 mg/Sodium Chloride 114 ml @ 114 mls/hr Q48H IV 02/25/17 18:00 12/10/17 17:59 Chlorhexidine Gluconate (Poonam-Hex 2%) 1 applic DAILY TOPIC 02/26/17 09:00 03/28/17 08:59 02/26/17 09:21 Heparin Sodium (Porcine) (Heparin 5000 units/ml) 5,000 units EVERY 12 HOURS SUBQ 02/25/17 21:00 03/27/17 20:59 Hydrocortisone (Solu-CORTEF) 100 mg EVERY 8 HOURS IV 02/26/17 14:00 02/28/17 06:01 02/26/17 14:37 Levothyroxine Sodium (Synthroid) 50 mcg ACBREAKFAST ORAL 02/26/17 06:30 03/28/17 06:29 02/26/17 06:01 Lorazepam (Ativan 2mg/ml 1ml) 2 mg Q2H PRN IV For Anxiety 02/25/17 15:15 03/04/17 15:14 Morphine Sulfate (Morphine Sulfate) 4 mg Q4H PRN IVP Severe Pain (Pain Scale 7-10) 02/25/17 15:15 03/04/17 15:14 02/26/17 11:50 Norepinephrine Bitartrate 8 mg/ Dextrose 558 ml @ 0 mls/hr Q24H IV 02/26/17 11:15 03/28/17 11:14 02/26/17 17:51 Ondansetron HCl (Zofran) 4 mg Q6H PRN IVP Nausea & Vomiting 02/25/17 15:15 03/27/17 15:14 Pantoprazole (Protonix) 40 mg DAILY IVP 02/26/17 09:00 03/28/17 08:59 02/26/17 09:22 Polyethylene Glycol (Miralax) 17 gm DAILYPRN PRN ORAL Constipation 02/25/17 15:15 03/27/17 15:14 Sodium Chloride 1,000 ml @ 100 mls/hr Q10H IVLG 02/25/17 16:45 03/27/17 16:44 02/26/17 17:09 Vancomycin HCl (Vanco rx to dose) 1 ea DAILY PRN MISC RX TO DOSE 02/26/17 07:15 03/28/17 07:14 Vancomycin HCl (Vancomycin) 125 mg BID NG 02/26/17 16:00 03/05/17 15:59 02/26/17 17:07 Assessment/Plan Problem List: (1) Central venous line infection Assessment & Plan: 62 F with likely infected tunneled right IJ central venous catheter causing septic shock. Catheter removed at bedside without difficulty. upon removal of catheter purulent discharge was noted at insertion site and evacuated. site cleaned and dressings applied. good hemostasis noted. tip sent for culture. discharge sent for culture. -continue current care and management. -IV abx as per ID -follow up cultures. thank you for this consultation. will follow with recs. ICD Codes: T80.219A - Unspecified infection due to central venous catheter, initial encounter SNOMED: [id number] Status: unchanged Zac Rodriguez Feb 26, 2017 18:27
--- NOTE | 2017-02-26 18:34 | Cardiology Report ---
APPROVED REPORT EKG Measurement Heart [id number] WA [id number] Sinus rhythm with short WA Low voltage QRS Nonspecific ST and T wave abnormality Abnormal ECG
--- NOTE | 2017-02-26 18:38 | Cardiology Report ---
APPROVED REPORT EKG Measurement Heart [id number] Sinus tachycardia with premature supraventricular complexes Low voltage QRS Nonspecific T wave abnormality Abnormal ECG
[2017-02-26] MEDS: Dyna-Hex 2% Top Sol 2oz TOPIC SCH (21:41)
[2017-02-27] VITALS (60 sets, daily range): BP systolic 79–138; BP diastolic 21–85
[2017-02-27 04:47] LABS: MEAN CORPUSCULAR HEMOGLOBIN 27.6 PG (27.0-31.0); MEAN CORPUSCULAR HGB CONC 32.2 G/DL (32.0-36.0); MEAN CORPUSCULAR VOLUME 86 FL (80-99); MEAN PLATELET VOLUME 15.8 FL (6.5-10.1); PLATELET COUNT 52 K/UL (150-450); RED CELL DISTRIBUTION WIDTH 18.2 % (11.6-14.8)
[2017-02-27 05:01] LABS: HEMOGLOBIN A1C 5.9 % (4.3-6.0)
[2017-02-27 05:06] LABS: WHITE BLOOD COUNT 39.1 K/UL (4.8-10.8)
[2017-02-27 05:16] LABS: AMMONIA < 3 umol/L (11-32)
[2017-02-27 05:19] LABS: ALANINE AMINOTRANSFERASE 8 U/L (12-78); ALBUMIN/GLOBULIN RATIO 0.3 (1.0-2.7); ANION GAP 10 mmol/L (5-15); ASPARTATE AMINO TRANSFERASE 34 U/L (15-37); CALCIUM 6.6 MG/DL (8.5-10.1); CARBON DIOXIDE 21 MMOL/L (21-32); CHLORIDE 102 MMOL/L (98-107); CHOLESTEROL 131 MG/DL (< 200); CHOLESTEROL/HDL RATIO 14.6 (3.3-4.4); CREATININE 2.9 MG/DL (0.55-1.30); CRP QUANT 21.9 mg/dL (0.00-0.90); GLOMERULAR FILTRATION RATE 16.5 mL/min (>60); MAGNESIUM 1.4 MG/DL (1.8-2.4); PHOSPHORUS 2.8 MG/DL (2.5-4.9); SODIUM 133 MMOL/L (136-145); TOTAL PROTEIN 4.8 G/DL (6.4-8.2); URIC ACID 4.9 MG/DL (2.6-7.2)
[2017-02-27] MEDS: Norepinephrine Bitartrate 8 MG in D5W 500ml 550 ML IV SCH ×3 (05:37→19:55)
[2017-02-27] MEDS: Hydrocortisone 100mg Inj IV SCH ×3 (06:22→21:38)
[2017-02-27] MEDS: Heparin 5000 units/ml inj SUBQ SCH ×2 (07:44→21:00)
[2017-02-27 08:30] LABS: BAND NEUTROPHILS % (MANUAL) 0 % (0-8); BASOPHILS % (MANUAL) 0 % (0-2); EOSINOPHILS % (MANUAL) 0 % (0-3); LYMPHOCYTES % (MANUAL) 5 % (20-45); NEUTROPHILS % (MANUAL) 93 % (45-75); PLATELET ESTIMATE DECREASED; PLATELET MORPHOLOGY NORMAL; TOTAL CELLS COUNTED 100
[2017-02-27] MEDS: Vancomycin oral 125mg/2.5ml NG SCH ×2 (08:45→18:06)
[2017-02-27] MEDS: Pantoprazole Inj IVP SCH (08:45)
--- NOTE | 2017-02-27 09:12 | Infectious Diseases Prog Note ---
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 Acute respiratory failure s/p intubation- 2ry to Sepsis and CHF Hyperleukocytosis, slightly improved- likely 2ry to above FEver- improving Troponinemia, worsening Thrombocytopenia, worsening Hx of Cdiff- unclear when and tx -No BM here, has abd pain- -abd xray: Single prominent gas-filled bowel loop is seen in the midabdomen, probably transverse colon, appearance nonspecific. HTN, chronic dCHF, CKD, HLD HUS, ESRD on HD T//S, muscle wasting/atrophy, senior living resident Plan: -Continue IV Vancomycin #3 for staph bacteremia bacteremia pending sensi -02/26 SP Daptomycin x1 (to achieve therapeutic levels quicker) -D/c IV Amikacin #3 -Continue prophylatic PO Vancomycin for Cdiff while on abx -f/u Repeat 2 sets of Bcx and from HD cath -Ok for placement of temporary HD cath for HD -Please await at least 48-72hrs of repeat negative Bcx for placement of a permanent HD catheter -DORIS given echo findings and persistent bacteremia -CT chest/abd/p without IV contrast (LD) to evaluate for intrabdominal abscess given still high pressor and WBC count -f/u cx -Monitor CBC/BMP, temperatures Thank you for this consultation. Will continue to follow along with you. Discussed with RN and Dr Cason. Subjective Allergies: Coded Allergies: PENICILLINS (Verified Allergy, Unknown, 02/25/17) PIPERACILLIN (Verified Allergy, Unknown, 02/25/17) TAZOBACTAM (Verified Allergy, Unknown, 02/25/17) Subjective low grade fever last night leukocytosis slightly improved levo at 20 still bacteremic Objective Vital Signs Last 24 Hour Vital Signs Date Time Temp Pulse Resp B/P (MAP) Pulse Ox O2 Delivery O2 Flow Rate FiO2 02/27/17 08:00 30 02/27/17 07:00 87 15 99/37 94 Mechanical Ventilator 30 02/27/17 07:00 96/36 02/27/17 06:51 80 16 30 02/27/17 06:30 84 17 97/38 99 Mechanical Ventilator 30 02/27/17 06:00 96/41 02/27/17 06:00 81 16 96/41 100 Mechanical Ventilator 30 02/27/17 05:37 89/37 02/27/17 05:30 83 21 92/45 100 Mechanical Ventilator 30 02/27/17 05:23 81 16 30 02/27/17 05:15 88 18 96/56 100 Mechanical Ventilator 30 02/27/17 05:00 81 12 89/42 99 Mechanical Ventilator 30 02/27/17 05:00 89/42 02/27/17 04:45 84 16 96/33 99 Mechanical Ventilator 30 02/27/17 04:30 88 18 100/33 99 Mechanical Ventilator 30 02/27/17 04:15 87 16 100/33 100 Mechanical Ventilator 30 02/27/17 04:00 98.3 91 16 109/40 100 Mechanical Ventilator 30 02/27/17 04:00 30 02/27/17 04:00 109/42 02/27/17 04:00 93 02/27/17 03:32 83 16 30 02/27/17 03:30 86 16 103/39 100 Mechanical Ventilator 30 02/27/17 03:15 84 16 99/41 100 Mechanical Ventilator 30 02/27/17 03:00 99/42 02/27/17 03:00 84 16 99/42 100 Mechanical Ventilator 30 02/27/17 02:45 86 16 98/43 100 Mechanical Ventilator 30 02/27/17 02:30 85 16 100/38 100 Mechanical Ventilator 30 02/27/17 02:15 90 16 102/45 100 Mechanical Ventilator 30 02/27/17 02:07 103/40 02/27/17 02:00 92 16 103/40 100 Mechanical Ventilator 30 02/27/17 01:30 86 16 103/39 100 Mechanical Ventilator 30 02/27/17 01:10 90 16 30 02/27/17 01:00 104/37 02/27/17 01:00 89 16 99/41 100 Mechanical Ventilator 30 02/27/17 00:36 98.9 02/27/17 00:30 98.9 90 16 95/46 100 Mechanical Ventilator 30 02/27/17 00:00 90 02/27/17 00:00 89 16 98/40 100 Mechanical Ventilator 30 02/27/17 00:00 98/40 02/27/17 00:00 30 02/26/17 23:45 88 16 30 02/26/17 23:30 100.0 90 16 100/38 100 Mechanical Ventilator 30 02/26/17 23:05 97/42 02/26/17 23:00 91 16 100/38 100 Mechanical Ventilator 30 02/26/17 22:30 95 16 97/42 99 Mechanical Ventilator 30 02/26/17 22:00 91 16 97/44 99 Mechanical Ventilator 30 02/26/17 22:00 97/44 02/26/17 21:30 94 16 30 02/26/17 21:30 93 16 95/42 99 Mechanical Ventilator 30 02/26/17 21:00 94 16 93/47 99 Mechanical Ventilator 30 02/26/17 21:00 93/47 02/26/17 20:30 88 16 107/43 98 Mechanical Ventilator 30 02/26/17 20:00 94 02/26/17 20:00 30 02/26/17 20:00 98.3 94 16 96/42 98 Mechanical Ventilator 30 02/26/17 20:00 96/42 02/26/17 19:30 88 16 102/40 98 Mechanical Ventilator 30 02/26/17 19:13 85 16 30 02/26/17 19:00 87 16 105/40 98 Mechanical Ventilator 30 02/26/17 19:00 105/40 02/26/17 18:45 86 9 105/42 97 Mechanical Ventilator 30 02/26/17 18:30 86 16 109/38 98 Mechanical Ventilator 30 02/26/17 18:15 87 12 106/39 98 Mechanical Ventilator 30 02/26/17 18:00 84 14 109/43 100 Mechanical Ventilator 30 02/26/17 17:51 63/38 02/26/17 17:45 92 16 113/38 99 Mechanical Ventilator 30 02/26/17 17:30 86 16 113/41 100 Mechanical Ventilator 30 02/26/17 17:15 85 14 110/35 100 Mechanical Ventilator 30 02/26/17 17:00 84 10 107/40 100 Mechanical Ventilator 30 02/26/17 16:45 85 16 103/38 100 Mechanical Ventilator 30 02/26/17 16:44 84 18 30 02/26/17 16:30 86 16 107/48 99 Mechanical Ventilator 30 02/26/17 16:15 119 16 115/50 96 Mechanical Ventilator 30 02/26/17 16:00 134 11 111/78 93 Mechanical Ventilator 30 02/26/17 16:00 30 02/26/17 16:00 86 02/26/17 15:45 89 16 104/40 99 Mechanical Ventilator 30 02/26/17 15:30 87 16 104/39 97 Mechanical Ventilator 30 02/26/17 15:15 88 16 106/51 97 Mechanical Ventilator 30 02/26/17 15:00 88 16 108/36 100 Mechanical Ventilator 30 02/26/17 14:48 85 15 30 02/26/17 14:45 88 16 104/36 99 Mechanical Ventilator 30 02/26/17 14:30 86 16 103/35 99 Mechanical Ventilator 30 02/26/17 14:15 89 16 98/39 98 Mechanical Ventilator 30 02/26/17 14:00 87 16 99/34 97 Mechanical Ventilator 30 02/26/17 13:45 87 16 98/31 97 Mechanical Ventilator 30 02/26/17 13:30 87 16 95/40 97 Mechanical Ventilator 30 02/26/17 13:15 87 16 97/39 100 Mechanical Ventilator 30 02/26/17 13:00 86 16 101/40 100 Mechanical Ventilator 30 02/26/17 12:45 86 16 89/44 100 Mechanical Ventilator 30 02/26/17 12:40 81 16 30 02/26/17 12:30 89 16 89/44 100 Mechanical Ventilator 30 02/26/17 12:15 88 16 88/47 100 Mechanical Ventilator 30 02/26/17 12:00 87 02/26/17 12:00 98.3 87 16 87/50 100 Mechanical Ventilator 30 02/26/17 12:00 30 02/26/17 11:45 87 16 90/45 100 Mechanical Ventilator 30 02/26/17 11:34 120 02/26/17 11:30 85 17 100/43 100 Mechanical Ventilator 30 02/26/17 11:26 96/46 02/26/17 11:15 85 16 96/46 100 Mechanical Ventilator 30 02/26/17 11:00 85 16 103/37 100 Mechanical Ventilator 30 02/26/17 10:45 84 16 91/47 100 Mechanical Ventilator 30 02/26/17 10:34 83 17 30 02/26/17 10:30 85 17 103/35 100 Mechanical Ventilator 30 02/26/17 10:15 85 16 106/35 100 Mechanical Ventilator 30 02/26/17 10:00 86 17 106/41 100 Mechanical Ventilator 30 02/26/17 09:45 86 17 106/36 100 Mechanical Ventilator 30 02/26/17 09:30 88 17 99/35 100 Mechanical Ventilator 30 02/26/17 09:15 88 16 103/48 100 Mechanical Ventilator 30 Height (Feet): 5 Height (Inches): 7.00 Weight (Pounds): 164 Objective Status: sedated, other Condition: critical HEENT: atraumatic, normocephalic, other - OP with ET in palce, intact Neck: other - RIJ TL intact Lungs: clear, other -s/p removal R HD cath Heart: HR/BP unstable Abdomen: soft, non-tender, active bowel sounds Extremities: no C/C/E Microbiology Date/Time Source Procedure Growth Status 02/25/17 09:45 Blood Blood Culture - Preliminary Staphylococcus Species Resulted 02/25/17 09:45 Blood Blood Culture - Preliminary Staphylococcus Species Resulted 02/25/17 19:45 Nasal Nares Influenza Types A,B Antigen (YANY) - Final Complete 02/26/17 04:00 Sacral Wound Gram Stain - Final Resulted 02/26/17 04:00 Sacral Wound Wound Culture Pending Resulted Laboratory Tests Test 02/26/17 09:30 02/26/17 10:42 02/26/17 11:10 02/27/17 03:50 White Blood Count 46.1 K/UL (4.8-10.8) #*H 39.1 K/UL (4.8-10.8) *H Red Blood Count 4.13 M/UL (4.20-5.40) L 3.80 M/UL (4.20-5.40) L Hemoglobin 11.7 G/DL (12.0-16.0) #L 10.5 G/DL (12.0-16.0) L Hematocrit 36.0 % (37.0-47.0) #L 32.5 % (37.0-47.0) L Mean Corpuscular Volume 87 FL (80-99) 86 FL (80-99) Mean Corpuscular Hemoglobin 28.3 PG (27.0-31.0) 27.6 PG (27.0-31.0) Mean Corpuscular Hemoglobin Concent 32.4 G/DL (32.0-36.0) 32.2 G/DL (32.0-36.0) Red Cell Distribution Width 18.0 % (11.6-14.8) H 18.2 % (11.6-14.8) H Platelet Count 59 K/UL (150-450) L 52 K/UL (150-450) L Mean Platelet Volume 11.9 FL (6.5-10.1) H 15.8 FL (6.5-10.1) H Neutrophils (%) (Auto) % (45.0-75.0) % (45.0-75.0) Lymphocytes (%) (Auto) % (20.0-45.0) % (20.0-45.0) Monocytes (%) (Auto) % (1.0-10.0) % (1.0-10.0) Eosinophils (%) (Auto) % (0.0-3.0) % (0.0-3.0) Basophils (%) (Auto) % (0.0-2.0) % (0.0-2.0) Differential Total Cells Counted 100 100 Neutrophils % (Manual) 97 % (45-75) H 93 % (45-75) H Lymphocytes % (Manual) 1 % (20-45) L 5 % (20-45) L Monocytes % (Manual) 2 % (1-10) 2 % (1-10) Eosinophils % (Manual) 0 % (0-3) 0 % (0-3) Basophils % (Manual) 0 % (0-2) 0 % (0-2) Band Neutrophils 0 % (0-8) 0 % (0-8) Platelet Estimate Decreased L Decreased L Platelet Morphology Normal Normal Hypochromasia 1+ Anisocytosis 2+ Troponin I 6.123 ng/mL (0.000-0.056) 4.475 ng/mL (0.000-0.056) Arterial Blood pH 7.417 (7.350-7.450) Arterial Blood Partial Pressure CO2 30.5 mmHg (35.0-45.0) L Arterial Blood Partial Pressure O2 114.9 mmHg (75.0-100.0) H Arterial Blood HCO3 19.2 mmol/L (22.0-26.0) L Arterial Blood Oxygen Saturation 98.1 % (92.0-98.0) H Arterial Blood Base Excess -4.3 Farhan Test Positive Phosphorus Level 2.5 MG/DL (2.5-4.9) 2.8 MG/DL (2.5-4.9) Magnesium Level 1.4 MG/DL (1.8-2.4) L 1.4 MG/DL (1.8-2.4) L Gamma Glutamyl Transpeptidase 63 U/L (5-85) 74 U/L (5-85) Total Creatine Kinase 136 U/L (26-308) C-Reactive Protein, Quantitative 27.0 mg/dL (0.00-0.90) H 21.9 mg/dL (0.00-0.90) H Pro-B-Type Natriuretic Peptide > 82047 pg/mL (0-125) H 794836 pg/mL (0-125) H Thyroid Stimulating Hormone (TSH) 2.951 uiU/mL (0.358-3.740) Erythrocyte Sedimentation Rate 16 MM/HR (0-30) Sodium Level 133 MMOL/L (136-145) L Potassium Level 4.0 MMOL/L (3.5-5.1) Chloride Level 102 MMOL/L (98-107) Carbon Dioxide Level 21 MMOL/L (21-32) Anion Gap 10 mmol/L (5-15) Blood Urea Nitrogen 43 mg/dL (7-18) H Creatinine 2.9 MG/DL (0.55-1.30) H Estimat Glomerular Filtration Rate 16.5 mL/min (>60) Glucose Level 182 MG/DL (74-106) H Hemoglobin A1c 5.9 % (4.3-6.0) Uric Acid 4.9 MG/DL (2.6-7.2) Calcium Level 6.6 MG/DL (8.5-10.1) L Total Bilirubin 0.9 MG/DL (0.2-1.0) Aspartate Amino Transf (AST/SGOT) 34 U/L (15-37) Alanine Aminotransferase (ALT/SGPT) 8 U/L (12-78) L Alkaline Phosphatase 221 U/L (46-116) H Ammonia < 3 umol/L (11-32) L Total Protein 4.8 G/DL (6.4-8.2) L Albumin 1.2 G/DL (3.4-5.0) L Globulin 3.6 g/dL Albumin/Globulin Ratio 0.3 (1.0-2.7) L Triglycerides Level 284 MG/DL (30-150) H Cholesterol Level 131 MG/DL (< 200) LDL Cholesterol 32 mg/dL (<100) HDL Cholesterol 9 MG/DL (40-60) L Cholesterol/HDL Ratio 14.6 (3.3-4.4) H Current Medications Medications (Trade) Dose Ordered Sig/Nina Route PRN Reason Start Time Stop Time Status Last Admin Dose Admin Acetaminophen (Tylenol) 650 mg Q4H PRN ORAL fever 02/25/17 15:15 03/27/17 15:14 02/26/17 23:37 Albuterol/ Ipratropium (Albuterol/ Ipratropium) 3 ml Q4H PRN HHN Shortness of Breath 02/25/17 15:15 03/02/17 15:14 Amikacin Sulfate 1000 mg/Sodium Chloride 114 ml @ 114 mls/hr Q48H IV 02/25/17 18:00 03/04/17 17:59 Chlorhexidine Gluconate (Poonam-Hex 2%) 1 applic DAILY@2000 TOPIC 02/26/17 22:00 03/28/17 21:59 02/26/17 21:41 Heparin Sodium (Porcine) (Heparin 5000 units/ml) 5,000 units EVERY 12 HOURS SUBQ 02/25/17 21:00 03/27/17 20:59 Hydrocortisone (Solu-CORTEF) 100 mg EVERY 8 HOURS IV 02/26/17 14:00 02/28/17 06:01 02/27/17 06:22 Levothyroxine Sodium (Synthroid) 50 mcg ACBREAKFAST ORAL 02/26/17 06:30 03/28/17 06:29 02/27/17 06:22 Lorazepam (Ativan 2mg/ml 1ml) 2 mg Q2H PRN IV For Anxiety 02/25/17 15:15 03/04/17 15:14 Morphine Sulfate (Morphine Sulfate) 4 mg Q4H PRN IVP Severe Pain (Pain Scale 7-10) 02/25/17 15:15 03/04/17 15:14 02/26/17 11:50 Norepinephrine Bitartrate 8 mg/ Dextrose 558 ml @ 0 mls/hr Q24H IV 02/26/17 11:15 03/28/17 11:14 02/27/17 05:37 Ondansetron HCl (Zofran) 4 mg Q6H PRN IVP Nausea & Vomiting 02/25/17 15:15 03/27/17 15:14 Pantoprazole (Protonix) 40 mg DAILY IVP 02/26/17 09:00 03/28/17 08:59 02/27/17 08:45 Polyethylene Glycol (Miralax) 17 gm DAILYPRN PRN ORAL Constipation 02/25/17 15:15 03/27/17 15:14 Sodium Chloride 1,000 ml @ 100 mls/hr Q10H IVLG 02/25/17 16:45 03/27/17 16:44 02/27/17 02:08 Vancomycin HCl (Vanco rx to dose) 1 ea DAILY PRN MISC RX TO DOSE 02/26/17 07:15 03/28/17 07:14 Vancomycin HCl (Vancomycin) 125 mg BID NG 02/26/17 16:00 03/05/17 15:59 02/27/17 08:45 Anamaria Davalos M.D. Feb 27, 2017 09:12
--- NOTE | 2017-02-27 09:51 | Pulmonolgy Critical Care Note ---
Critical Care - Asmt/Plan Problems: (1) ESRF (end stage renal failure) (2) Respiratory failure, acute (3) Septic shock (4) Altered level of consciousness (5) Hypotension (6) PVD (peripheral vascular disease) Respiratory: monitor respiratory rate Cardiac: continue pressors Renal: F/U I&O Infectious Disease: check cultures Gastrointestinal: start feedings Endocrine: continue sliding scale insulin Hematologic: monitor H/H, transfuse if hgb<8.5 Neurologic: PRN Ativan, keep patient comfortable Affect: PRN ativan Prophylaxis: Heparin Disposition: keep in ICU Time Spent (Minutes): 40 Notes Reviewed: cardio, renal, ID, GI Discussed with: nurses, consultants, case managersbilingual account manager - Objective Last 24 Hour Vital Signs Date Time Temp Pulse Resp B/P (MAP) Pulse Ox O2 Delivery O2 Flow Rate FiO2 02/27/17 09:17 84 20 30 02/27/17 08:00 30 02/27/17 07:00 87 15 99/37 94 Mechanical Ventilator 30 02/27/17 07:00 96/36 02/27/17 06:51 80 16 30 02/27/17 06:30 84 17 97/38 99 Mechanical Ventilator 30 02/27/17 06:00 96/41 02/27/17 06:00 81 16 96/41 100 Mechanical Ventilator 30 02/27/17 05:37 89/37 02/27/17 05:30 83 21 92/45 100 Mechanical Ventilator 30 02/27/17 05:23 81 16 30 02/27/17 05:15 88 18 96/56 100 Mechanical Ventilator 30 02/27/17 05:00 81 12 89/42 99 Mechanical Ventilator 30 02/27/17 05:00 89/42 02/27/17 04:45 84 16 96/33 99 Mechanical Ventilator 30 02/27/17 04:30 88 18 100/33 99 Mechanical Ventilator 30 02/27/17 04:15 87 16 100/33 100 Mechanical Ventilator 30 02/27/17 04:00 98.3 91 16 109/40 100 Mechanical Ventilator 30 02/27/17 04:00 30 02/27/17 04:00 109/42 02/27/17 04:00 93 02/27/17 03:32 83 16 30 02/27/17 03:30 86 16 103/39 100 Mechanical Ventilator 30 02/27/17 03:15 84 16 99/41 100 Mechanical Ventilator 30 02/27/17 03:00 99/42 02/27/17 03:00 84 16 99/42 100 Mechanical Ventilator 30 02/27/17 02:45 86 16 98/43 100 Mechanical Ventilator 30 02/27/17 02:30 85 16 100/38 100 Mechanical Ventilator 30 02/27/17 02:15 90 16 102/45 100 Mechanical Ventilator 30 02/27/17 02:07 103/40 02/27/17 02:00 92 16 103/40 100 Mechanical Ventilator 30 02/27/17 01:30 86 16 103/39 100 Mechanical Ventilator 30 02/27/17 01:10 90 16 30 02/27/17 01:00 104/37 02/27/17 01:00 89 16 99/41 100 Mechanical Ventilator 30 02/27/17 00:36 98.9 02/27/17 00:30 98.9 90 16 95/46 100 Mechanical Ventilator 30 02/27/17 00:00 90 02/27/17 00:00 89 16 98/40 100 Mechanical Ventilator 30 02/27/17 00:00 98/40 02/27/17 00:00 30 02/26/17 23:45 88 16 30 02/26/17 23:30 100.0 90 16 100/38 100 Mechanical Ventilator 30 02/26/17 23:05 97/42 02/26/17 23:00 91 16 100/38 100 Mechanical Ventilator 30 02/26/17 22:30 95 16 97/42 99 Mechanical Ventilator 30 02/26/17 22:00 91 16 97/44 99 Mechanical Ventilator 30 02/26/17 22:00 97/44 02/26/17 21:30 94 16 30 02/26/17 21:30 93 16 95/42 99 Mechanical Ventilator 30 02/26/17 21:00 94 16 93/47 99 Mechanical Ventilator 30 02/26/17 21:00 93/47 02/26/17 20:30 88 16 107/43 98 Mechanical Ventilator 30 02/26/17 20:00 94 02/26/17 20:00 30 02/26/17 20:00 98.3 94 16 96/42 98 Mechanical Ventilator 30 02/26/17 20:00 96/42 02/26/17 19:30 88 16 102/40 98 Mechanical Ventilator 30 02/26/17 19:13 85 16 30 02/26/17 19:00 87 16 105/40 98 Mechanical Ventilator 30 02/26/17 19:00 105/40 02/26/17 18:45 86 9 105/42 97 Mechanical Ventilator 30 02/26/17 18:30 86 16 109/38 98 Mechanical Ventilator 30 02/26/17 18:15 87 12 106/39 98 Mechanical Ventilator 30 02/26/17 18:00 84 14 109/43 100 Mechanical Ventilator 30 02/26/17 17:51 63/38 02/26/17 17:45 92 16 113/38 99 Mechanical Ventilator 30 02/26/17 17:30 86 16 113/41 100 Mechanical Ventilator 30 02/26/17 17:15 85 14 110/35 100 Mechanical Ventilator 30 02/26/17 17:00 84 10 107/40 100 Mechanical Ventilator 30 02/26/17 16:45 85 16 103/38 100 Mechanical Ventilator 30 02/26/17 16:44 84 18 30 02/26/17 16:30 86 16 107/48 99 Mechanical Ventilator 30 02/26/17 16:15 119 16 115/50 96 Mechanical Ventilator 30 02/26/17 16:00 134 11 111/78 93 Mechanical Ventilator 30 02/26/17 16:00 30 02/26/17 16:00 86 02/26/17 15:45 89 16 104/40 99 Mechanical Ventilator 30 02/26/17 15:30 87 16 104/39 97 Mechanical Ventilator 30 02/26/17 15:15 88 16 106/51 97 Mechanical Ventilator 30 02/26/17 15:00 88 16 108/36 100 Mechanical Ventilator 30 02/26/17 14:48 85 15 30 02/26/17 14:45 88 16 104/36 99 Mechanical Ventilator 30 02/26/17 14:30 86 16 103/35 99 Mechanical Ventilator 30 02/26/17 14:15 89 16 98/39 98 Mechanical Ventilator 30 02/26/17 14:00 87 16 99/34 97 Mechanical Ventilator 30 02/26/17 13:45 87 16 98/31 97 Mechanical Ventilator 30 02/26/17 13:30 87 16 95/40 97 Mechanical Ventilator 30 02/26/17 13:15 87 16 97/39 100 Mechanical Ventilator 30 02/26/17 13:00 86 16 101/40 100 Mechanical Ventilator 30 02/26/17 12:45 86 16 89/44 100 Mechanical Ventilator 30 02/26/17 12:40 81 16 30 02/26/17 12:30 89 16 89/44 100 Mechanical Ventilator 30 02/26/17 12:15 88 16 88/47 100 Mechanical Ventilator 30 02/26/17 12:00 87 02/26/17 12:00 98.3 87 16 87/50 100 Mechanical Ventilator 30 02/26/17 12:00 30 02/26/17 11:45 87 16 90/45 100 Mechanical Ventilator 30 02/26/17 11:34 120 02/26/17 11:30 85 17 100/43 100 Mechanical Ventilator 30 02/26/17 11:26 96/46 02/26/17 11:15 85 16 96/46 100 Mechanical Ventilator 30 02/26/17 11:00 85 16 103/37 100 Mechanical Ventilator 30 02/26/17 10:45 84 16 91/47 100 Mechanical Ventilator 30 02/26/17 10:34 83 17 30 02/26/17 10:30 85 17 103/35 100 Mechanical Ventilator 30 02/26/17 10:15 85 16 106/35 100 Mechanical Ventilator 30 02/26/17 10:00 86 17 106/41 100 Mechanical Ventilator 30 Status: awake Condition: critical HEENT: atraumatic Neck: full ROM Lungs: chest wall tender Heart: HR/BP unstable, regular Abdomen: non-tender, active bowel sounds Extremities: other - cold feet Decubiti: location Micro: Microbiology Date/Time Source Procedure Growth Status 02/25/17 09:45 Blood Blood Culture - Preliminary Staphylococcus Species Resulted 02/25/17 09:45 Blood Blood Culture - Preliminary Staphylococcus Species Resulted 02/25/17 19:45 Nasal Nares Influenza Types A,B Antigen (YANY) - Final Complete 02/26/17 04:00 Sacral Wound Gram Stain - Final Resulted 02/26/17 04:00 Sacral Wound Wound Culture Pending Resulted Critical Care - Subjective ROS Limited/Unobtainable: No ICU Day: 3 Interval Events: improving slowly EKG Rhythm: Sinus Rhythm FI02: 30 Vent Support Breath Rate: 16 Vent Support Mode: AC Vent Tidal Volume: 600 Sputum Amount: Moderate PIP: 82 Fluids: NS 100 cc/hour Drips: Levophed 20 ugm CXR: no change ET-Tube: 7.5 ET Position: 25 Labs: Laboratory Tests Test 02/26/17 10:42 02/26/17 11:10 02/27/17 03:50 Arterial Blood pH 7.417 (7.350-7.450) Arterial Blood Partial Pressure CO2 30.5 mmHg (35.0-45.0) L Arterial Blood Partial Pressure O2 114.9 mmHg (75.0-100.0) H Arterial Blood HCO3 19.2 mmol/L (22.0-26.0) L Arterial Blood Oxygen Saturation 98.1 % (92.0-98.0) H Arterial Blood Base Excess -4.3 Farhan Test Positive Phosphorus Level 2.5 MG/DL (2.5-4.9) 2.8 MG/DL (2.5-4.9) Magnesium Level 1.4 MG/DL (1.8-2.4) L 1.4 MG/DL (1.8-2.4) L Gamma Glutamyl Transpeptidase 63 U/L (5-85) 74 U/L (5-85) Total Creatine Kinase 136 U/L (26-308) C-Reactive Protein, Quantitative 27.0 mg/dL (0.00-0.90) H 21.9 mg/dL (0.00-0.90) H Pro-B-Type Natriuretic Peptide > 80904 pg/mL (0-125) H 745504 pg/mL (0-125) H Thyroid Stimulating Hormone (TSH) 2.951 uiU/mL (0.358-3.740) White Blood Count 39.1 K/UL (4.8-10.8) *H Red Blood Count 3.80 M/UL (4.20-5.40) L Hemoglobin 10.5 G/DL (12.0-16.0) L Hematocrit 32.5 % (37.0-47.0) L Mean Corpuscular Volume 86 FL (80-99) Mean Corpuscular Hemoglobin 27.6 PG (27.0-31.0) Mean Corpuscular Hemoglobin Concent 32.2 G/DL (32.0-36.0) Red Cell Distribution Width 18.2 % (11.6-14.8) H Platelet Count 52 K/UL (150-450) L Mean Platelet Volume 15.8 FL (6.5-10.1) H Neutrophils (%) (Auto) % (45.0-75.0) Lymphocytes (%) (Auto) % (20.0-45.0) Monocytes (%) (Auto) % (1.0-10.0) Eosinophils (%) (Auto) % (0.0-3.0) Basophils (%) (Auto) % (0.0-2.0) Differential Total Cells Counted 100 Neutrophils % (Manual) 93 % (45-75) H Lymphocytes % (Manual) 5 % (20-45) L Monocytes % (Manual) 2 % (1-10) Eosinophils % (Manual) 0 % (0-3) Basophils % (Manual) 0 % (0-2) Band Neutrophils 0 % (0-8) Platelet Estimate Decreased L Platelet Morphology Normal Erythrocyte Sedimentation Rate 16 MM/HR (0-30) Sodium Level 133 MMOL/L (136-145) L Potassium Level 4.0 MMOL/L (3.5-5.1) Chloride Level 102 MMOL/L (98-107) Carbon Dioxide Level 21 MMOL/L (21-32) Anion Gap 10 mmol/L (5-15) Blood Urea Nitrogen 43 mg/dL (7-18) H Creatinine 2.9 MG/DL (0.55-1.30) H Estimat Glomerular Filtration Rate 16.5 mL/min (>60) Glucose Level 182 MG/DL (74-106) H Hemoglobin A1c 5.9 % (4.3-6.0) Uric Acid 4.9 MG/DL (2.6-7.2) Calcium Level 6.6 MG/DL (8.5-10.1) L Total Bilirubin 0.9 MG/DL (0.2-1.0) Aspartate Amino Transf (AST/SGOT) 34 U/L (15-37) Alanine Aminotransferase (ALT/SGPT) 8 U/L (12-78) L Alkaline Phosphatase 221 U/L (46-116) H Ammonia < 3 umol/L (11-32) L Troponin I 4.475 ng/mL (0.000-0.056) Total Protein 4.8 G/DL (6.4-8.2) L Albumin 1.2 G/DL (3.4-5.0) L Globulin 3.6 g/dL Albumin/Globulin Ratio 0.3 (1.0-2.7) L Triglycerides Level 284 MG/DL (30-150) H Cholesterol Level 131 MG/DL (< 200) LDL Cholesterol 32 mg/dL (<100) HDL Cholesterol 9 MG/DL (40-60) L Cholesterol/HDL Ratio 14.6 (3.3-4.4) H BHAVIN PARKER Feb 27, 2017 09:51
--- NOTE | 2017-02-27 09:53 | Pulmonolgy Critical Care Note ---
Critical Care - Asmt/Plan Problems: (1) ESRF (end stage renal failure) (2) Respiratory failure, acute (3) Septic shock (4) Altered level of consciousness (5) Hypotension (6) PVD (peripheral vascular disease) Respiratory: monitor respiratory rate, adjust FIO2 Cardiac: continue pressors, continue to monitor HR/BP Renal: F/U I&O, keep IV fluid Infectious Disease: check cultures Gastrointestinal: continue feedings/current rate, hold feedings Endocrine: check TSH Neurologic: PRN Ativan Prophylaxis: Heparin Discussed with: nurses, consultants, correctional casework specialist, other - D/W dr Scherer who is remved the Permacaht, some putrid materla came out of the site. Critical Care - Objective Last 24 Hour Vital Signs Date Time Temp Pulse Resp B/P (MAP) Pulse Ox O2 Delivery O2 Flow Rate FiO2 02/27/17 09:17 84 20 30 02/27/17 08:00 30 02/27/17 07:00 87 15 99/37 94 Mechanical Ventilator 30 02/27/17 07:00 96/36 02/27/17 06:51 80 16 30 02/27/17 06:30 84 17 97/38 99 Mechanical Ventilator 30 02/27/17 06:00 96/41 02/27/17 06:00 81 16 96/41 100 Mechanical Ventilator 30 02/27/17 05:37 89/37 02/27/17 05:30 83 21 92/45 100 Mechanical Ventilator 30 02/27/17 05:23 81 16 30 02/27/17 05:15 88 18 96/56 100 Mechanical Ventilator 30 02/27/17 05:00 81 12 89/42 99 Mechanical Ventilator 30 02/27/17 05:00 89/42 02/27/17 04:45 84 16 96/33 99 Mechanical Ventilator 30 02/27/17 04:30 88 18 100/33 99 Mechanical Ventilator 30 02/27/17 04:15 87 16 100/33 100 Mechanical Ventilator 30 02/27/17 04:00 98.3 91 16 109/40 100 Mechanical Ventilator 30 02/27/17 04:00 30 02/27/17 04:00 109/42 02/27/17 04:00 93 02/27/17 03:32 83 16 30 02/27/17 03:30 86 16 103/39 100 Mechanical Ventilator 30 02/27/17 03:15 84 16 99/41 100 Mechanical Ventilator 30 02/27/17 03:00 99/42 02/27/17 03:00 84 16 99/42 100 Mechanical Ventilator 30 02/27/17 02:45 86 16 98/43 100 Mechanical Ventilator 30 02/27/17 02:30 85 16 100/38 100 Mechanical Ventilator 30 02/27/17 02:15 90 16 102/45 100 Mechanical Ventilator 30 02/27/17 02:07 103/40 02/27/17 02:00 92 16 103/40 100 Mechanical Ventilator 30 02/27/17 01:30 86 16 103/39 100 Mechanical Ventilator 30 02/27/17 01:10 90 16 30 02/27/17 01:00 104/37 02/27/17 01:00 89 16 99/41 100 Mechanical Ventilator 30 02/27/17 00:36 98.9 02/27/17 00:30 98.9 90 16 95/46 100 Mechanical Ventilator 30 02/27/17 00:00 90 02/27/17 00:00 89 16 98/40 100 Mechanical Ventilator 30 02/27/17 00:00 98/40 02/27/17 00:00 30 02/26/17 23:45 88 16 30 02/26/17 23:30 100.0 90 16 100/38 100 Mechanical Ventilator 30 02/26/17 23:05 97/42 02/26/17 23:00 91 16 100/38 100 Mechanical Ventilator 30 02/26/17 22:30 95 16 97/42 99 Mechanical Ventilator 30 02/26/17 22:00 91 16 97/44 99 Mechanical Ventilator 30 02/26/17 22:00 97/44 02/26/17 21:30 94 16 30 02/26/17 21:30 93 16 95/42 99 Mechanical Ventilator 30 02/26/17 21:00 94 16 93/47 99 Mechanical Ventilator 30 02/26/17 21:00 93/47 02/26/17 20:30 88 16 107/43 98 Mechanical Ventilator 30 02/26/17 20:00 94 02/26/17 20:00 30 02/26/17 20:00 98.3 94 16 96/42 98 Mechanical Ventilator 30 02/26/17 20:00 96/42 02/26/17 19:30 88 16 102/40 98 Mechanical Ventilator 30 02/26/17 19:13 85 16 30 12/4/17 19:00 87 16 105/40 98 Mechanical Ventilator 30 02/26/17 19:00 105/40 02/26/17 18:45 86 9 105/42 97 Mechanical Ventilator 30 02/26/17 18:30 86 16 109/38 98 Mechanical Ventilator 30 02/26/17 18:15 87 12 106/39 98 Mechanical Ventilator 30 02/26/17 18:00 84 14 109/43 100 Mechanical Ventilator 30 02/26/17 17:51 63/38 02/26/17 17:45 92 16 113/38 99 Mechanical Ventilator 30 02/26/17 17:30 86 16 113/41 100 Mechanical Ventilator 30 02/26/17 17:15 85 14 110/35 100 Mechanical Ventilator 30 02/26/17 17:00 84 10 107/40 100 Mechanical Ventilator 30 02/26/17 16:45 85 16 103/38 100 Mechanical Ventilator 30 02/26/17 16:44 84 18 30 02/26/17 16:30 86 16 107/48 99 Mechanical Ventilator 30 02/26/17 16:15 119 16 115/50 96 Mechanical Ventilator 30 02/26/17 16:00 134 11 111/78 93 Mechanical Ventilator 30 02/26/17 16:00 30 02/26/17 16:00 86 02/26/17 15:45 89 16 104/40 99 Mechanical Ventilator 30 02/26/17 15:30 87 16 104/39 97 Mechanical Ventilator 30 02/26/17 15:15 88 16 106/51 97 Mechanical Ventilator 30 02/26/17 15:00 88 16 108/36 100 Mechanical Ventilator 30 02/26/17 14:48 85 15 30 02/26/17 14:45 88 16 104/36 99 Mechanical Ventilator 30 02/26/17 14:30 86 16 103/35 99 Mechanical Ventilator 30 02/26/17 14:15 89 16 98/39 98 Mechanical Ventilator 30 02/26/17 14:00 87 16 99/34 97 Mechanical Ventilator 30 02/26/17 13:45 87 16 98/31 97 Mechanical Ventilator 30 02/26/17 13:30 87 16 95/40 97 Mechanical Ventilator 30 02/26/17 13:15 87 16 97/39 100 Mechanical Ventilator 30 02/26/17 13:00 86 16 101/40 100 Mechanical Ventilator 30 02/26/17 12:45 86 16 89/44 100 Mechanical Ventilator 30 02/26/17 12:40 81 16 30 02/26/17 12:30 89 16 89/44 100 Mechanical Ventilator 30 02/26/17 12:15 88 16 88/47 100 Mechanical Ventilator 30 02/26/17 12:00 87 02/26/17 12:00 98.3 87 16 87/50 100 Mechanical Ventilator 30 02/26/17 12:00 30 02/26/17 11:45 87 16 90/45 100 Mechanical Ventilator 30 02/26/17 11:34 120 02/26/17 11:30 85 17 100/43 100 Mechanical Ventilator 30 02/26/17 11:26 96/46 02/26/17 11:15 85 16 96/46 100 Mechanical Ventilator 30 02/26/17 11:00 85 16 103/37 100 Mechanical Ventilator 30 02/26/17 10:45 84 16 91/47 100 Mechanical Ventilator 30 02/26/17 10:34 83 17 30 02/26/17 10:30 85 17 103/35 100 Mechanical Ventilator 30 02/26/17 10:15 85 16 106/35 100 Mechanical Ventilator 30 02/26/17 10:00 86 17 106/41 100 Mechanical Ventilator 30 Status: awake Condition: critical HEENT: atraumatic Neck: full ROM Heart: HR/BP stable, HR/BP unstable Abdomen: non-tender, active bowel sounds, feeding tube Micro: Microbiology Date/Time Source Procedure Growth Status 02/25/17 09:45 Blood Blood Culture - Preliminary Staphylococcus Species Resulted 02/25/17 09:45 Blood Blood Culture - Preliminary Staphylococcus Species Resulted 02/25/17 19:45 Nasal Nares Influenza Types A,B Antigen (YANY) - Final Complete 02/26/17 04:00 Sacral Wound Gram Stain - Final Resulted 02/26/17 04:00 Sacral Wound Wound Culture Pending Resulted Critical Care - Subjective ROS Limited/Unobtainable: Yes ICU Day: 2 Intubation Day: 2 Interval Events: late note for 02/26/2017 FI02: 30 Vent Support Breath Rate: 16 Vent Support Mode: AC Vent Tidal Volume: 600 Sputum Amount: Moderate PIP: 82 Fluids: Ns Drips: Levophed CXR: bilateral upper lobe increased marking, ET-Tube: 7.5 ET [facility] Feb 27, 2017 09:53
--- NOTE | 2017-02-27 10:30 | Consultation ---
DATE OF CONSULTATION: 02/26/2017 NOTE: POOR AUDIO QUALITY RHEUMATOLOGICAL CONSULTATION CONSULTING PHYSICIAN: Zamzam Velazquez M.D. REFERRING PHYSICIAN: Marcos Cason M.D. REASON FOR ADMISSION: This is a 62-year-old patient for admission to [facility] intensive care unit because this patient has left knee synovitis. HISTORY OF PRESENT ILLNESS: The patient is a resident of an [facility] care facility where she had been in stable condition. Over the last several months, she is known to have chronic medical syndrome, but has been stable on her current medication. On admission, she was found to have altered mental status and hypotension. She was brought to [facility] ER where she was found to be in septic shock, the cause of which was found to be infected central venous catheter. She was transferred to the intensive care unit, was placed on pressor support. In addition to her present medications, also had vancomycin and amikacin. Multiple consultants were called to assist in the management of this case that included infectious diseases consult, surgical consult, and nephrology consult was done as the patient has end-stage renal failure, hemodynamically has been stable, cath in the left chest. The patient has multiple chronic medical syndromes that include high blood pressure, diastolic congestive heart failure, normocytic anemia, chronic kidney disease, hypoalbuminemia, gastrostomy feeding, and new onset metabolic encephalopathy secondary to sepsis. In the current admission, she was already found to have elevated troponin that significantly needs to be determined. hemodynamic support. ALLERGIES: The patient is allergic to penicillin, piperacillin and tazobactam. FAMILY HISTORY: Cannot be found in the medical record. SOCIAL HISTORY: She is single. She was born in [place]. She had been on disability for several years prior to the appearance of a total disability from working at her job. HABITS: The patient did not smoke, drink, or use illicit drugs. REVIEW OF SYSTEMS: The patient however is being very particular information regarding her state of health. PHYSICAL EXAMINATION: VITAL SIGNS: Blood pressure is 97/44, pulse is 91, respirations were 16, and temperature 98.3. HEENT: Eyes were normal. Pupils were round, equal, and reactive to light. Extraocular movement could not be assessed. Temporal arteries were palpable bilaterally. There was bilateral temporal wasting. Visual alcala to confrontation. Neglect sign could not be assessed. ENT, mucous membranes were not dehydrated. Auditory canals were clear and tympanic membranes could not be visualized. Nasal cavity was not congested. Nasal septum was intact. Soft palate and uvula could not be visualized. Tongue was dry, midline, and normally papillated. NECK: Supple. There was no goiter. No mass. No lymphadenopathy, JVD was 12 cm from supraclavicular fossa at 60 degrees. Carotid upstroke was 1+. LUNGS: Clear. There is bilateral rhonchi at both bases. HEART: PMI was in fifth left intercostal space in midclavicular line. There was normal S1 and normal S2. There was no murmur. No arrhythmia. No S3. No S4. No pericardial rub. There was tachycardia at rest. Sinus tachycardia on monitor. ABDOMEN: Soft and nontender without organomegaly. There was no mass palpable. Normal bowel sounds without bruits. There was no guarding. No rebound tenderness. No ascites. No hernia. No CVA tenderness. Liver span was 8 cm, mostly nontender. EXTREMITIES: No cyanosis, clubbing, or edema. Extremities were warm. Both knees were slightly warm. There was minimal fluctuation starting from the right knee. There was no erythema. Passive range of motion was near normal and popliteal fossa was not cold. LABORATORY DATA: Hemoglobin is 11.7 and hematocrit 36.0 with MCV of 87, WBC of 46,000, and platelets were 69,000. On the previous day, the patient's WBC was 25,000 and platelets were 78,000. Her BUN and creatinine is 39 and 2.7 respectively. Her sodium was 136, potassium 3.3, chloride 105, and CO2 was 21. Her total bilirubin was 1.9 and direct bilirubin is 0.7. Her SGOT was 54 and SGPT was 91. Alkaline phosphatase was 251. 163. Her total CK was 106. Her troponin increased from 3.73 to 6.12. CRP is 27 and BNP is more than 25,000. Albumin is 1.3 and globulin is 3.9. Her troponin was 1.263. IMPRESSION AND PLAN: The patient has altered mental status associated with septic shock, severe leukocytosis, and end-stage renal failure requiring dialysis. In regard to laboratory test to ascertain the safety of the procedure. functioning. Repeat laboratory tests will be done in the a.m. Thank you, Dr. Cason, for allowing me to participate in the care of this patient. Zamzam Velazquez M.D. DR: IMER JOB#: [id number] CC:
--- NOTE | 2017-02-27 10:39 | Diagnostic Imaging Report ---
APPROVED REPORT CPT Code: 99340 Present Symptoms Lower Extremity Edema: Bilateral Shortness of breath Comments: Hx CHF, HTN. Technically difficult study due to bilateral thigh vessel depth and edema. RIGHT LEG: Venous imaging reveals a patent deep venous system. Venous imaging reveals recanalized chronic thrombus from the common femoral to the popliteal veins. There is no evidence of acute thrombus within the femoral, popliteal or tibial segments. The greater saphenous vein is within normal limits. Doppler indicates normal spontaneous flow within these segments. The mid superficial femoral vein and calf veins were not well visualized due to edema. LEFT LEG: Venous imaging reveals a patent deep venous system. Venous imaging reveals recanalized chronic thrombus from the common femoral to the popliteal veins. There is no evidence of acute thrombus within the femoral, popliteal or tibial segments. The greater saphenous vein is also within normal limits. Doppler indicates normal spontaneous flow within these segments. The mid superficial femoral vein and calf veins were not well visualized due to edema. Incidental finding: Prominent lymph node in the right inguinal area measuring 2.7 cm x 0.6 cm x 2.4 cm.
--- NOTE | 2017-02-27 10:50 | Cardiac Electrophysiology PN ---
Assessment/Plan Assessment/Plan 1. Elevated troponin. Troponin increased from 1 to 3.7 and then to 6.213. This is likely due to demand ischemia in this patient with septic shock, bacteremia and endocarditis. The patient is not a candidate for anticoagulation with heparin in view of severe anemia requiring blood transfusion as well as severe thrombocytopenia with platelet count of 50,000. Her EKG also showed sinus rhythm with nonspecific ST-T wave abnormality with no ST elevation. Obviously cannot give beta-mathieu in view of hypotension.EF 55% by echo 2. Bacteremia and echogenic material on the posterior mitral leaflet that cannot exclude vegetation. We will consider DORIS as needed, but at this time, we will continue IV antibiotics as the patient is not stable. 3. Severe pulmonary regurgitation with PA pressure of 53. 4. Septic shock, on Levophed and IV antibiotic per Dr. Cason. 5. Respiratory failure, currently on the ventilator. 6. End-stage renal disease. The PermCath was removed as it was probably the source of infection. Again, the patient remains on IV antibiotics. 7. Severe anemia, status post blood transfusion. DW Dr Dexter and DORIE Savage Subjective Subjective In ICU on vent and Levophed [address] Dexter at bedside. Objective Last 24 Hour Vital Signs Date Time Temp Pulse Resp B/P (MAP) Pulse Ox O2 Delivery O2 Flow Rate FiO2 02/27/17 10:34 95 19 30 02/27/17 09:17 84 20 30 02/27/17 08:00 30 02/27/17 08:00 88 02/27/17 07:00 87 15 99/37 94 Mechanical Ventilator 30 02/27/17 07:00 96/36 02/27/17 06:51 80 16 30 02/27/17 06:30 84 17 97/38 99 Mechanical Ventilator 30 02/27/17 06:00 96/41 02/27/17 06:00 81 16 96/41 100 Mechanical Ventilator 30 02/27/17 05:37 89/37 02/27/17 05:30 83 21 92/45 100 Mechanical Ventilator 30 02/27/17 05:23 81 16 30 02/27/17 05:15 88 18 96/56 100 Mechanical Ventilator 30 02/27/17 05:00 81 12 89/42 99 Mechanical Ventilator 30 02/27/17 05:00 8942 02/27/17 04:45 84 16 96/33 99 Mechanical Ventilator 30 02/27/17 04:30 88 18 100/33 99 Mechanical Ventilator 30 02/27/17 04:15 87 16 100/33 100 Mechanical Ventilator 30 02/27/17 04:00 98.3 91 16 109/40 100 Mechanical Ventilator 30 02/27/17 04:00 30 02/27/17 04:00 109/42 02/27/17 04:00 93 02/27/17 03:32 83 16 30 02/27/17 03:30 86 16 103/39 100 Mechanical Ventilator 30 02/27/17 03:15 84 16 99/41 100 Mechanical Ventilator 30 02/27/17 03:00 99/42 02/27/17 03:00 84 16 99/42 100 Mechanical Ventilator 30 02/27/17 02:45 86 16 98/43 100 Mechanical Ventilator 30 02/27/17 02:30 85 16 100/38 100 Mechanical Ventilator 30 02/27/17 02:15 90 16 102/45 100 Mechanical Ventilator 30 02/27/17 02:07 103/40 02/27/17 02:00 92 16 103/40 100 Mechanical Ventilator 30 02/27/17 01:30 86 16 103/39 100 Mechanical Ventilator 30 02/27/17 01:10 90 16 30 02/27/17 01:00 104/37 02/27/17 01:00 89 16 99/41 100 Mechanical Ventilator 30 02/27/17 00:36 98.9 02/27/17 00:30 98.9 90 16 95/46 100 Mechanical Ventilator 30 02/27/17 00:00 90 02/27/17 00:00 89 16 98/40 100 Mechanical Ventilator 30 02/27/17 00:00 98/40 02/27/17 00:00 30 02/26/17 23:45 88 16 30 02/26/17 23:30 100.0 90 16 100/38 100 Mechanical Ventilator 30 02/26/17 23:05 97/42 02/26/17 23:00 91 16 100/38 100 Mechanical Ventilator 30 02/26/17 22:30 95 16 97/42 99 Mechanical Ventilator 30 02/26/17 22:00 91 16 97/44 99 Mechanical Ventilator 30 02/26/17 22:00 97/44 02/26/17 21:30 94 16 30 02/26/17 21:30 93 16 95/42 99 Mechanical Ventilator 30 02/26/17 21:00 94 16 93/47 99 Mechanical Ventilator 30 02/26/17 21:00 93/47 02/26/17 20:30 88 16 107/43 98 Mechanical Ventilator 30 02/26/17 20:00 94 02/26/17 20:00 30 02/26/17 20:00 98.3 94 16 96/42 98 Mechanical Ventilator 30 02/26/17 20:00 96/42 02/26/17 19:30 88 16 102/40 98 Mechanical Ventilator 30 02/26/17 19:13 85 16 30 02/26/17 19:00 87 16 105/40 98 Mechanical Ventilator 30 02/26/17 19:00 105/40 02/26/17 18:45 86 9 105/42 97 Mechanical Ventilator 30 02/26/17 18:30 86 16 109/38 98 Mechanical Ventilator 30 02/26/17 18:15 87 12 106/39 98 Mechanical Ventilator 30 02/26/17 18:00 84 14 109/43 100 Mechanical Ventilator 30 02/26/17 17:51 63/38 02/26/17 17:45 92 16 113/38 99 Mechanical Ventilator 30 02/26/17 17:30 86 16 113/41 100 Mechanical Ventilator 30 02/26/17 17:15 85 14 110/35 100 Mechanical Ventilator 30 02/26/17 17:00 84 10 107/40 100 Mechanical Ventilator 30 02/26/17 16:45 85 16 103/38 100 Mechanical Ventilator 30 02/26/17 16:44 84 18 30 02/26/17 16:30 86 16 107/48 99 Mechanical Ventilator 30 02/26/17 16:15 119 16 115/50 96 Mechanical Ventilator 30 02/26/17 16:00 134 11 111/78 93 Mechanical Ventilator 30 02/26/17 16:00 30 02/26/17 16:00 86 02/26/17 15:45 89 16 104/40 99 Mechanical Ventilator 30 02/26/17 15:30 87 16 104/39 97 Mechanical Ventilator 30 02/26/17 15:15 88 16 106/51 97 Mechanical Ventilator 30 02/26/17 15:00 88 16 108/36 100 Mechanical Ventilator 30 02/26/17 14:48 85 15 30 02/26/17 14:45 88 16 104/36 99 Mechanical Ventilator 30 02/26/17 14:30 86 16 103/35 99 Mechanical Ventilator 30 02/26/17 14:15 89 16 98/39 98 Mechanical Ventilator 30 02/26/17 14:00 87 16 99/34 97 Mechanical Ventilator 30 02/26/17 13:45 87 16 98/31 97 Mechanical Ventilator 30 02/26/17 13:30 87 16 95/40 97 Mechanical Ventilator 30 02/26/17 13:15 87 16 97/39 100 Mechanical Ventilator 30 02/26/17 13:00 86 16 101/40 100 Mechanical Ventilator 30 02/26/17 12:45 86 16 89/44 100 Mechanical Ventilator 30 02/26/17 12:40 81 16 30 02/26/17 12:30 89 16 89/44 100 Mechanical Ventilator 30 02/26/17 12:15 88 16 88/47 100 Mechanical Ventilator 30 02/26/17 12:00 87 02/26/17 12:00 98.3 87 16 87/50 100 Mechanical Ventilator 30 02/26/17 12:00 30 02/26/17 11:45 87 16 90/45 100 Mechanical Ventilator 30 02/26/17 11:34 120 02/26/17 11:30 85 17 100/43 100 Mechanical Ventilator 30 02/26/17 11:26 96/46 02/26/17 11:15 85 16 96/46 100 Mechanical Ventilator 30 02/26/17 11:00 85 16 103/37 100 Mechanical Ventilator 30 02/26/17 10:45 84 16 91/47 100 Mechanical Ventilator 30 Intake and Output 02/27/17 02/28/17 19:00 07:00 Intake Total 60 ml Output Total 0 ml Balance 60 ml Other 60 ml Output Urine Total 0 ml Laboratory Tests Test 02/26/17 11:10 02/27/17 03:50 Phosphorus Level 2.5 MG/DL (2.5-4.9) 2.8 MG/DL (2.5-4.9) Magnesium Level 1.4 MG/DL (1.8-2.4) L 1.4 MG/DL (1.8-2.4) L Gamma Glutamyl Transpeptidase 63 U/L (5-85) 74 U/L (5-85) Total Creatine Kinase 136 U/L (26-308) C-Reactive Protein, Quantitative 27.0 mg/dL (0.00-0.90) H 21.9 mg/dL (0.00-0.90) H Pro-B-Type Natriuretic Peptide > 42894 pg/mL (0-125) H 606969 pg/mL (0-125) H Thyroid Stimulating Hormone (TSH) 2.951 uiU/mL (0.358-3.740) White Blood Count 39.1 K/UL (4.8-10.8) *H Red Blood Count 3.80 M/UL (4.20-5.40) L Hemoglobin 10.5 G/DL (12.0-16.0) L Hematocrit 32.5 % (37.0-47.0) L Mean Corpuscular Volume 86 FL (80-99) Mean Corpuscular Hemoglobin 27.6 PG (27.0-31.0) Mean Corpuscular Hemoglobin Concent 32.2 G/DL (32.0-36.0) Red Cell Distribution Width 18.2 % (11.6-14.8) H Platelet Count 52 K/UL (150-450) L Mean Platelet Volume 15.8 FL (6.5-10.1) H Neutrophils (%) (Auto) % (45.0-75.0) Lymphocytes (%) (Auto) % (20.0-45.0) Monocytes (%) (Auto) % (1.0-10.0) Eosinophils (%) (Auto) % (0.0-3.0) Basophils (%) (Auto) % (0.0-2.0) Differential Total Cells Counted 100 Neutrophils % (Manual) 93 % (45-75) H Lymphocytes % (Manual) 5 % (20-45) L Monocytes % (Manual) 2 % (1-10) Eosinophils % (Manual) 0 % (0-3) Basophils % (Manual) 0 % (0-2) Band Neutrophils 0 % (0-8) Platelet Estimate Decreased L Platelet Morphology Normal Erythrocyte Sedimentation Rate 16 MM/HR (0-30) Sodium Level 133 MMOL/L (136-145) L Potassium Level 4.0 MMOL/L (3.5-5.1) Chloride Level 102 MMOL/L (98-107) Carbon Dioxide Level 21 MMOL/L (21-32) Anion Gap 10 mmol/L (5-15) Blood Urea Nitrogen 43 mg/dL (7-18) H Creatinine 2.9 MG/DL (0.55-1.30) H Estimat Glomerular Filtration Rate 16.5 mL/min (>60) Glucose Level 182 MG/DL (74-106) H Hemoglobin A1c 5.9 % (4.3-6.0) Uric Acid 4.9 MG/DL (2.6-7.2) Calcium Level 6.6 MG/DL (8.5-10.1) L Total Bilirubin 0.9 MG/DL (0.2-1.0) Aspartate Amino Transf (AST/SGOT) 34 U/L (15-37) Alanine Aminotransferase (ALT/SGPT) 8 U/L (12-78) L Alkaline Phosphatase 221 U/L (46-116) H Ammonia < 3 umol/L (11-32) L Troponin I 4.475 ng/mL (0.000-0.056) Total Protein 4.8 G/DL (6.4-8.2) L Albumin 1.2 G/DL (3.4-5.0) L Globulin 3.6 g/dL Albumin/Globulin Ratio 0.3 (1.0-2.7) L Triglycerides Level 284 MG/DL (30-150) H Cholesterol Level 131 MG/DL (< 200) LDL Cholesterol 32 mg/dL (<100) HDL Cholesterol 9 MG/DL (40-60) L Cholesterol/HDL Ratio 14.6 (3.3-4.4) H Microbiology Date/Time Source Procedure Growth Status 02/25/17 09:45 Blood Blood Culture - Preliminary Staphylococcus Species Resulted 02/25/17 09:45 Blood Blood Culture - Preliminary Staphylococcus Species Resulted 02/25/17 19:45 Nasal Nares Influenza Types A,B Antigen (YANY) - Final Complete 02/26/17 04:00 Sacral Wound Gram Stain - Final Resulted 02/26/17 04:00 Wound Culture - Preliminary Gram Negative Bacillus 1 Resulted Objective HEAD AND NECK: Shows no JVD, orally intubated. LUNGS: Decreased breath sounds. CARDIOVASCULAR: Shows regular S1 and S2 with no gallop. ABDOMEN: Soft. EXTREMITIES: 2 plus pitting edema. LOIS ELLISON Feb 27, 2017 10:50
--- NOTE | 2017-02-27 11:08 | General Surgery Progress Note ---
General Surgery-Progress Note Subjective Symptoms: improved Additional Comments leukocytosis improved today. wound site clean. dressings not saturated. Objective Last 24 Hour Vital Signs Date Time Temp Pulse Resp B/P (MAP) Pulse Ox O2 Delivery O2 Flow Rate FiO2 02/27/17 10:34 95 19 30 02/27/17 09:17 84 20 30 02/27/17 08:00 30 02/27/17 08:00 88 02/27/17 07:00 87 15 99/37 94 Mechanical Ventilator 30 02/27/17 07:00 96/36 02/27/17 06:51 80 16 30 02/27/17 06:30 84 17 97/38 99 Mechanical Ventilator 30 02/27/17 06:00 96/41 02/27/17 06:00 81 16 96/41 100 Mechanical Ventilator 30 02/27/17 05:37 89/37 02/27/17 05:30 83 21 92/45 100 Mechanical Ventilator 30 02/27/17 05:23 81 16 30 02/27/17 05:15 88 18 96/56 100 Mechanical Ventilator 30 02/27/17 05:00 81 12 89/42 99 Mechanical Ventilator 30 02/27/17 05:00 89/42 02/27/17 04:45 84 16 96/33 99 Mechanical Ventilator 30 02/27/17 04:30 88 18 100/33 99 Mechanical Ventilator 30 02/27/17 04:15 87 16 100/33 100 Mechanical Ventilator 30 02/27/17 04:00 98.3 91 16 109/40 100 Mechanical Ventilator 30 02/27/17 04:00 30 02/27/17 04:00 109/42 02/27/17 04:00 93 02/27/17 03:32 83 16 30 02/27/17 03:30 86 16 103/39 100 Mechanical Ventilator 30 02/27/17 03:15 84 16 99/41 100 Mechanical Ventilator 30 02/27/17 03:00 99/42 02/27/17 03:00 84 16 99/42 100 Mechanical Ventilator 30 02/27/17 02:45 86 16 98/43 100 Mechanical Ventilator 30 02/27/17 02:30 85 16 100/38 100 Mechanical Ventilator 30 02/27/17 02:15 90 16 102/45 100 Mechanical Ventilator 30 02/27/17 02:07 103/40 02/27/17 02:00 92 16 103/40 100 Mechanical Ventilator 30 02/27/17 01:30 86 16 103/39 100 Mechanical Ventilator 30 02/27/17 01:10 90 16 30 02/27/17 01:00 104/37 02/27/17 01:00 89 16 99/41 100 Mechanical Ventilator 30 02/27/17 00:36 98.9 02/27/17 00:30 98.9 90 16 95/46 100 Mechanical Ventilator 30 02/27/17 00:00 90 02/27/17 00:00 89 16 98/40 100 Mechanical Ventilator 30 02/27/17 00:00 98/40 02/27/17 00:00 30 02/26/17 23:45 88 16 30 02/26/17 23:30 100.0 90 16 100/38 100 Mechanical Ventilator 30 02/26/17 23:05 97/42 02/26/17 23:00 91 16 100/38 100 Mechanical Ventilator 30 02/26/17 22:30 95 16 97/42 99 Mechanical Ventilator 30 02/26/17 22:00 91 16 97/44 99 Mechanical Ventilator 30 02/26/17 22:00 97/44 02/26/17 21:30 94 16 30 02/26/17 21:30 93 16 95/42 99 Mechanical Ventilator 30 02/26/17 21:00 94 16 93/47 99 Mechanical Ventilator 30 02/26/17 21:00 93/47 02/26/17 20:30 88 16 107/43 98 Mechanical Ventilator 30 02/26/17 20:00 94 02/26/17 20:00 30 02/26/17 20:00 98.3 94 16 96/42 98 Mechanical Ventilator 30 02/26/17 20:00 96/42 02/26/17 19:30 88 16 102/40 98 Mechanical Ventilator 30 02/26/17 19:13 85 16 30 02/26/17 19:00 87 16 105/40 98 Mechanical Ventilator 30 02/26/17 19:00 105/40 02/26/17 18:45 86 9 105/42 97 Mechanical Ventilator 30 02/26/17 18:30 86 16 109/38 98 Mechanical Ventilator 30 02/26/17 18:15 87 12 106/39 98 Mechanical Ventilator 30 02/26/17 18:00 84 14 109/43 100 Mechanical Ventilator 30 02/26/17 17:51 63/38 02/26/17 17:45 92 16 113/38 99 Mechanical Ventilator 30 02/26/17 17:30 86 16 113/41 100 Mechanical Ventilator 30 02/26/17 17:15 85 14 110/35 100 Mechanical Ventilator 30 02/26/17 17:00 84 10 107/40 100 Mechanical Ventilator 30 02/26/17 16:45 85 16 103/38 100 Mechanical Ventilator 30 02/26/17 16:44 84 18 30 02/26/17 16:30 86 16 107/48 99 Mechanical Ventilator 30 02/26/17 16:15 119 16 115/50 96 Mechanical Ventilator 30 02/26/17 16:00 134 11 111/78 93 Mechanical Ventilator 30 02/26/17 16:00 30 02/26/17 16:00 86 02/26/17 15:45 89 16 104/40 99 Mechanical Ventilator 30 02/26/17 15:30 87 16 104/39 97 Mechanical Ventilator 30 02/26/17 15:15 88 16 106/51 97 Mechanical Ventilator 30 02/26/17 15:00 88 16 108/36 100 Mechanical Ventilator 30 02/26/17 14:48 85 15 30 02/26/17 14:45 88 16 104/36 99 Mechanical Ventilator 30 02/26/17 14:30 86 16 103/35 99 Mechanical Ventilator 30 02/26/17 14:15 89 16 98/39 98 Mechanical Ventilator 30 02/26/17 14:00 87 16 99/34 97 Mechanical Ventilator 30 02/26/17 13:45 87 16 98/31 97 Mechanical Ventilator 30 02/26/17 13:30 87 16 95/40 97 Mechanical Ventilator 30 02/26/17 13:15 87 16 97/39 100 Mechanical Ventilator 30 02/26/17 13:00 86 16 101/40 100 Mechanical Ventilator 30 02/26/17 12:45 86 16 89/44 100 Mechanical Ventilator 30 02/26/17 12:40 81 16 30 02/26/17 12:30 89 16 89/44 100 Mechanical Ventilator 30 02/26/17 12:15 88 16 88/47 100 Mechanical Ventilator 30 02/26/17 12:00 87 02/26/17 12:00 98.3 87 16 87/50 100 Mechanical Ventilator 30 02/26/17 12:00 30 02/26/17 11:45 87 16 90/45 100 Mechanical Ventilator 30 02/26/17 11:34 120 02/26/17 11:30 85 17 100/43 100 Mechanical Ventilator 30 02/26/17 11:26 96/46 02/26/17 11:15 85 16 96/46 100 Mechanical Ventilator 30 I&O Intake and Output 02/27/17 02/28/17 19:00 07:00 Intake Total 60 ml Output Total 0 ml Balance 60 ml Other 60 ml Output Urine Total 0 ml Dressing: dry Wound: clean Drains: none Cardiovascular: RSR Respiratory: clear Abdomen: soft Extremities: no tenderness Laboratory Tests Test 02/26/17 11:10 02/27/17 03:50 Phosphorus Level 2.5 MG/DL (2.5-4.9) 2.8 MG/DL (2.5-4.9) Magnesium Level 1.4 MG/DL (1.8-2.4) L 1.4 MG/DL (1.8-2.4) L Gamma Glutamyl Transpeptidase 63 U/L (5-85) 74 U/L (5-85) Total Creatine Kinase 136 U/L (26-308) C-Reactive Protein, Quantitative 27.0 mg/dL (0.00-0.90) H 21.9 mg/dL (0.00-0.90) H Pro-B-Type Natriuretic Peptide > 20546 pg/mL (0-125) H 685196 pg/mL (0-125) H Thyroid Stimulating Hormone (TSH) 2.951 uiU/mL (0.358-3.740) White Blood Count 39.1 K/UL (4.8-10.8) *H Red Blood Count 3.80 M/UL (4.20-5.40) L Hemoglobin 10.5 G/DL (12.0-16.0) L Hematocrit 32.5 % (37.0-47.0) L Mean Corpuscular Volume 86 FL (80-99) Mean Corpuscular Hemoglobin 27.6 PG (27.0-31.0) Mean Corpuscular Hemoglobin Concent 32.2 G/DL (32.0-36.0) Red Cell Distribution Width 18.2 % (11.6-14.8) H Platelet Count 52 K/UL (150-450) L Mean Platelet Volume 15.8 FL (6.5-10.1) H Neutrophils (%) (Auto) % (45.0-75.0) Lymphocytes (%) (Auto) % (20.0-45.0) Monocytes (%) (Auto) % (1.0-10.0) Eosinophils (%) (Auto) % (0.0-3.0) Basophils (%) (Auto) % (0.0-2.0) Differential Total Cells Counted 100 Neutrophils % (Manual) 93 % (45-75) H Lymphocytes % (Manual) 5 % (20-45) L Monocytes % (Manual) 2 % (1-10) Eosinophils % (Manual) 0 % (0-3) Basophils % (Manual) 0 % (0-2) Band Neutrophils 0 % (0-8) Platelet Estimate Decreased L Platelet Morphology Normal Erythrocyte Sedimentation Rate 16 MM/HR (0-30) Sodium Level 133 MMOL/L (136-145) L Potassium Level 4.0 MMOL/L (3.5-5.1) Chloride Level 102 MMOL/L (98-107) Carbon Dioxide Level 21 MMOL/L (21-32) Anion Gap 10 mmol/L (5-15) Blood Urea Nitrogen 43 mg/dL (7-18) H Creatinine 2.9 MG/DL (0.55-1.30) H Estimat Glomerular Filtration Rate 16.5 mL/min (>60) Glucose Level 182 MG/DL (74-106) H Hemoglobin A1c 5.9 % (4.3-6.0) Uric Acid 4.9 MG/DL (2.6-7.2) Calcium Level 6.6 MG/DL (8.5-10.1) L Total Bilirubin 0.9 MG/DL (0.2-1.0) Aspartate Amino Transf (AST/SGOT) 34 U/L (15-37) Alanine Aminotransferase (ALT/SGPT) 8 U/L (12-78) L Alkaline Phosphatase 221 U/L (46-116) H Ammonia < 3 umol/L (11-32) L Troponin I 4.475 ng/mL (0.000-0.056) Total Protein 4.8 G/DL (6.4-8.2) L Albumin 1.2 G/DL (3.4-5.0) L Globulin 3.6 g/dL Albumin/Globulin Ratio 0.3 (1.0-2.7) L Triglycerides Level 284 MG/DL (30-150) H Cholesterol Level 131 MG/DL (< 200) LDL Cholesterol 32 mg/dL (<100) HDL Cholesterol 9 MG/DL (40-60) L Cholesterol/HDL Ratio 14.6 (3.3-4.4) H Plan Problems: (1) Central venous line infection Assessment & Plan: 62 F with likely infected tunneled right IJ central venous catheter causing septic shock. Catheter removed at bedside without difficulty. upon removal of catheter purulent discharge was noted at insertion site and evacuated. site cleaned and dressings applied. good hemostasis noted. tip sent for culture. discharge sent for culture. -continue current care and management. -IV abx as per ID -follow up cultures. thank you for this consultation. will follow with recs. Zac Rodriguez Feb 27, 2017 11:08
--- NOTE | 2017-02-27 15:02 | Nephrology Progress Note ---
Assessment/Plan Problem List: (1) Septic shock (2) Respiratory failure, acute (3) ESRF (end stage renal failure) (4) Hypotension (5) Anemia Assessment severe sepsis with shock ? line related acute hypoxemic respiratory failure requiring intubation acute toxic metabolic encephalopathy likely due to sepsis elevated troponin acute anemia requiring blood transfusion Pulmonary edema ESRD, on HD , has permacath left chest Hx of CHF Sever HypoAlbuminemia Plan Hemodynamic support- Antibiotics HD as needed, permacath is out trial steroids- per orders Per orders Subjective ROS Limited/Unobtainable: Yes Objective Objective Last 24 Hour Vital Signs Date Time Temp Pulse Resp B/P (MAP) Pulse Ox O2 Delivery O2 Flow Rate FiO2 02/27/17 13:30 108 17 102/41 94 Mechanical Ventilator 30 02/27/17 13:25 92 20 30 02/27/17 13:00 100 17 88/63 94 Mechanical Ventilator 30 02/27/17 12:30 99 17 93/37 94 Mechanical Ventilator 30 02/27/17 12:05 76/44 02/27/17 12:00 98.3 97 17 97/45 94 Mechanical Ventilator 30 02/27/17 12:00 30 02/27/17 12:00 86 02/27/17 11:30 93 17 92/40 94 Mechanical Ventilator 30 02/27/17 11:00 86 17 101/54 94 Mechanical Ventilator 30 02/27/17 10:34 95 19 30 02/27/17 10:30 94 16 99/54 94 Mechanical Ventilator 30 02/27/17 10:00 87 16 99/38 94 Mechanical Ventilator 30 02/27/17 09:30 83 16 96/51 94 Mechanical Ventilator 30 02/27/17 09:17 84 20 30 02/27/17 09:00 87 16 98/47 94 Mechanical Ventilator 30 02/27/17 08:30 87 16 103/42 94 Mechanical Ventilator 30 02/27/17 08:00 30 02/27/17 08:00 88 02/27/17 08:00 98.4 95 15 107/56 94 Mechanical Ventilator 30 02/27/17 07:30 87 15 99/37 94 Mechanical Ventilator 30 02/27/17 07:00 87 15 99/37 94 Mechanical Ventilator 30 02/27/17 07:00 96/36 02/27/17 06:51 80 16 30 02/27/17 06:30 84 17 97/38 99 Mechanical Ventilator 30 02/27/17 06:00 96/41 02/27/17 06:00 81 16 96/41 100 Mechanical Ventilator 30 02/27/17 05:37 89/37 02/27/17 05:30 83 21 92/45 100 Mechanical Ventilator 30 02/27/17 05:23 81 16 30 02/27/17 05:15 88 18 96/56 100 Mechanical Ventilator 30 02/27/17 05:00 81 12 89/42 99 Mechanical Ventilator 30 02/27/17 05:00 89/42 02/27/17 04:45 84 16 96/33 99 Mechanical Ventilator 30 02/27/17 04:30 88 18 100/33 99 Mechanical Ventilator 30 02/27/17 04:15 87 16 100/33 100 Mechanical Ventilator 30 02/27/17 04:00 98.3 91 16 109/40 100 Mechanical Ventilator 30 02/27/17 04:00 30 02/27/17 04:00 109/42 02/27/17 04:00 93 02/27/17 03:32 83 16 30 02/27/17 03:30 86 16 103/39 100 Mechanical Ventilator 30 02/27/17 03:15 84 16 99/41 100 Mechanical Ventilator 30 02/27/17 03:00 99/42 02/27/17 03:00 84 16 99/42 100 Mechanical Ventilator 30 02/27/17 02:45 86 16 98/43 100 Mechanical Ventilator 30 02/27/17 02:30 85 16 100/38 100 Mechanical Ventilator 30 02/27/17 02:15 90 16 102/45 100 Mechanical Ventilator 30 02/27/17 02:07 103/40 02/27/17 02:00 92 16 103/40 100 Mechanical Ventilator 30 02/27/17 01:30 86 16 103/39 100 Mechanical Ventilator 30 02/27/17 01:10 90 16 30 02/27/17 01:00 104/37 02/27/17 01:00 89 16 99/41 100 Mechanical Ventilator 30 02/27/17 00:36 98.9 02/27/17 00:30 98.9 90 16 95/46 100 Mechanical Ventilator 30 02/27/17 00:00 90 02/27/17 00:00 89 16 98/40 100 Mechanical Ventilator 30 02/27/17 00:00 98/40 02/27/17 00:00 30 02/26/17 23:45 88 16 30 02/26/17 23:30 100.0 90 16 100/38 100 Mechanical Ventilator 30 02/26/17 23:05 97/42 02/26/17 23:00 91 16 100/38 100 Mechanical Ventilator 30 02/26/17 22:30 95 16 97/42 99 Mechanical Ventilator 30 02/26/17 22:00 91 16 97/44 99 Mechanical Ventilator 30 02/26/17 22:00 97/44 02/26/17 21:30 94 16 30 02/26/17 21:30 93 16 95/42 99 Mechanical Ventilator 30 02/26/17 21:00 94 16 93/47 99 Mechanical Ventilator 30 02/26/17 21:00 93/47 02/26/17 20:30 88 16 107/43 98 Mechanical Ventilator 30 02/26/17 20:00 94 02/26/17 20:00 30 02/26/17 20:00 98.3 94 16 96/42 98 Mechanical Ventilator 30 02/26/17 20:00 96/42 02/26/17 19:30 88 16 102/40 98 Mechanical Ventilator 30 02/26/17 19:13 85 16 30 02/26/17 19:00 87 16 105/40 98 Mechanical Ventilator 30 02/26/17 19:00 105/40 02/26/17 18:45 86 9 105/42 97 Mechanical Ventilator 30 02/26/17 18:30 86 16 109/38 98 Mechanical Ventilator 30 02/26/17 18:15 87 12 106/39 98 Mechanical Ventilator 30 02/26/17 18:00 84 14 109/43 100 Mechanical Ventilator 30 02/26/17 17:51 63/38 02/26/17 17:45 92 16 113/38 99 Mechanical Ventilator 30 02/26/17 17:30 86 16 113/41 100 Mechanical Ventilator 30 02/26/17 17:15 85 14 110/35 100 Mechanical Ventilator 30 02/26/17 17:00 84 10 107/40 100 Mechanical Ventilator 30 02/26/17 16:45 85 16 103/38 100 Mechanical Ventilator 30 02/26/17 16:44 84 18 30 02/26/17 16:30 86 16 107/48 99 Mechanical Ventilator 30 02/26/17 16:15 119 16 115/50 96 Mechanical Ventilator 30 12/4/17 16:00 134 11 111/78 93 Mechanical Ventilator 30 02/26/17 16:00 30 02/26/17 16:00 86 02/26/17 15:45 89 16 104/40 99 Mechanical Ventilator 30 02/26/17 15:30 87 16 104/39 97 Mechanical Ventilator 30 02/26/17 15:15 88 16 106/51 97 Mechanical Ventilator 30 02/26/17 15:00 88 16 108/36 100 Mechanical Ventilator 30 Intake and Output 02/27/17 02/28/17 19:00 07:00 Intake Total 1265.9 ml Output Total 0 ml Balance 1265.9 ml Intake IV Total 1185.9 ml Tube Feeding 20 ml Other 60 ml Output Urine Total 0 ml Laboratory Tests 02/27/17 03:50: White Blood Count 39.1*H, Red Blood Count 3.80L, Hemoglobin 10.5L, Hematocrit 32.5L, Mean Corpuscular Volume 86, Mean Corpuscular Hemoglobin 27.6, Mean Corpuscular Hemoglobin Concent 32.2, Red Cell Distribution Width 18.2H, Platelet Count 52L, Mean Platelet Volume 15.8H, Neutrophils (%) (Auto) , Lymphocytes (%) (Auto) , Monocytes (%) (Auto) , Eosinophils (%) (Auto) , Basophils (%) (Auto) , Differential Total Cells Counted 100, Neutrophils % ( Manual) 93H, Lymphocytes % (Manual) 5L, Monocytes % (Manual) 2, Eosinophils % ( Manual) 0, Basophils % (Manual) 0, Band Neutrophils 0, Platelet Estimate DecreasedL, Platelet Morphology Normal, Erythrocyte Sedimentation Rate 16, Sodium Level 133L, Potassium Level 4.0, Chloride Level 102, Carbon Dioxide Level 21, Anion Gap 10, Blood Urea Nitrogen 43H, Creatinine 2.9H, Estimat Glomerular Filtration Rate 16.5, Glucose Level 182H, Hemoglobin A1c 5.9, Uric Acid 4.9, Calcium Level 6.6L, Phosphorus Level 2.8, Magnesium Level 1.4L, Total Bilirubin 0.9, Gamma Glutamyl Transpeptidase 74, Aspartate Amino Transf (AST/ SGOT) 34, Alanine Aminotransferase (ALT/SGPT) 8L, Alkaline Phosphatase 221H, Ammonia < 3L, Troponin I 4.475H, C-Reactive Protein, Quantitative 21.9H, Pro-B- Type Natriuretic Peptide [id number], Total Protein 4.8L, Albumin 1.2L, Globulin 3.6 , Albumin/Globulin Ratio 0.3L, Triglycerides Level 284H, Cholesterol Level 131, LDL Cholesterol 32, HDL Cholesterol 9L, Cholesterol/HDL Ratio 14.6H Height (Feet): 5 Height (Inches): 7.00 Weight (Pounds): 164 General Appearance: no apparent distress EENT: other - on vent Cardiovascular: tachycardia Respiratory/Chest: decreased breath sounds Abdomen: distended JAQUELINE DEMPSEY Feb 27, 2017 15:02
[2017-02-27] MEDS ORDERED: Tubing IV Secondary IV ONE ×2 (15:07→15:18)
[2017-02-27] MEDS ORDERED: NS 500ML ONE (15:07)
[2017-02-27] MEDS ORDERED: D5W 550ml IV ONE (15:18)
[2017-02-27] MEDS: Dyna-Hex 2% Top Sol 2oz TOPIC SCH (19:53)
[2017-02-27] MEDS: Morphine Sulfate 4mg/ml Inj IVP PRN (22:46)
--- NOTE | 2017-02-27 23:45 | Progress Note ---
DATE: 02/27/2017 SUBJECTIVE: The patient remained with low-grade fever, tachycardia, and hypotensive. OBJECTIVE: VITAL SIGNS: Blood pressure 95/43, pulse is 114, respirations of 12, and temperature of 98.2 degrees. HEENT: Eyes were normal. ENT, mucous membranes were moist and intact. NECK: Supple with no JVD without lymph nodes. LUNGS: Clear. There are bibasilar rhonchi laterally. HEART: Normal sounds with regular beats. There is tachycardia at rest. Sinus tachycardia on monitor. ABDOMEN: Soft and nontender with normal bowel sounds. Gastrostomy site is clean. EXTREMITIES: Warm without cyanosis, clubbing, or edema similar to a day ago. LABORATORY DATA: Hemoglobin is 10.5, hematocrit 32.7, MCV of 86, WBC of 39.1, and platelets are 521,000. Her BUN and creatinine is 43 and 2.9 respectively. Her sodium is 133, potassium 4.0, chloride 102, and CO2 is 21. Uric acid is 4.2. SGOT and SGPT are normal. Her troponin is 4.475. CRP is 27. ProBNP 51,012. Total protein is 7.8 and albumin is 1.2. Urinalysis is not done. Sed rate 16. IMPRESSION: The patient with bilateral synovitis of both knees that was supposed to be tapped; however, the patient has acute myocardial infarction, leukemoid reaction, hypotension, tachycardia, and benefit of the synovial tap at the present time is questionable. We will wait until the patient will be more stable from cardiovascular point of view prior to the tap. Zamzam Velazquez M.D. DR: Michelle JOB#: [id number] CC:
[2017-02-28] VITALS (69 sets, daily range): BP systolic 61–127; BP diastolic 27–78
[2017-02-28] MEDS: Norepinephrine Bitartrate 8 MG in D5W 500ml 550 ML IV SCH ×4 (03:34→22:11)
[2017-02-28 05:43] LABS: MEAN CORPUSCULAR HEMOGLOBIN 27.5 PG (27.0-31.0); MEAN CORPUSCULAR HGB CONC 31.1 G/DL (32.0-36.0); MEAN CORPUSCULAR VOLUME 88 FL (80-99); MEAN PLATELET VOLUME 14.5 FL (6.5-10.1); PLATELET COUNT 37 K/UL (150-450); RED BLOOD COUNT 3.35 M/UL (4.20-5.40); RED CELL DISTRIBUTION WIDTH 19.1 % (11.6-14.8)
[2017-02-28] MEDS: Hydrocortisone 100mg Inj IV SCH (05:43)
[2017-02-28 05:47] LABS: ALANINE AMINOTRANSFERASE 10 U/L (12-78); ALBUMIN/GLOBULIN RATIO 0.4 (1.0-2.7); ANION GAP 14 mmol/L (5-15); ASPARTATE AMINO TRANSFERASE 43 U/L (15-37); CALCIUM 6.5 MG/DL (8.5-10.1); CARBON DIOXIDE 17 MMOL/L (21-32); CHLORIDE 99 MMOL/L (98-107); GLOMERULAR FILTRATION RATE 15.8 mL/min (>60); POTASSIUM 4.4 MMOL/L (3.5-5.1); SODIUM 130 MMOL/L (136-145); TOTAL PROTEIN 4.5 G/DL (6.4-8.2)
[2017-02-28 05:50] LABS: WHITE BLOOD COUNT 43.5 K/UL (4.8-10.8)
[2017-02-28 06:21] LABS: CRP QUANT 15.4 mg/dL (0.00-0.90); MAGNESIUM 1.6 MG/DL (1.8-2.4); PHOSPHORUS 4.1 MG/DL (2.5-4.9); URIC ACID 6.1 MG/DL (2.6-7.2)
[2017-02-28 08:17] LABS: ANISOCYTOSIS 1+; BAND NEUTROPHILS % (MANUAL) 0 % (0-8); BASOPHILS % (MANUAL) 0 % (0-2); EOSINOPHILS % (MANUAL) 0 % (0-3); HYPOCHROMASIA 1+; LYMPHOCYTES % (MANUAL) 3 % (20-45); NEUTROPHILS % (MANUAL) 94 % (45-75); PLATELET ESTIMATE DECREASED; PLATELET MORPHOLOGY NORMAL; TOTAL CELLS COUNTED 100
[2017-02-28] MEDS: Heparin 5000 units/ml inj SUBQ SCH ×2 (08:28→20:41)
[2017-02-28] MEDS ORDERED: Vancomycin 1gm in D5W 275ml IVPB ONE (09:00)
--- NOTE | 2017-02-28 09:39 | Diagnostic Imaging Report ---
INDICATION: Septic shock, respiratory failure, hypotension, anemia TECHNIQUE: Patient given enteric contrast. No IV contrast, reason not stated. Spiral acquisitions obtained through the chest, abdomen, and pelvis. Multiplanar reconstructions were generated. Total dose length product 1296 mGycm. CTDIvol(s) 20 mGy. Radiation dose was minimized using automated exposure control COMPARISON: None FINDINGS: Chest: There is anasarca. There is diffuse edema of the subcutaneous fat, the mediastinal and abdominal fat, as well as retroperitoneal fat. There is also ascites, pericardial fluid, and bilateral pleural fluid. There is extensive airspace consolidation throughout both lungs. This is diffuse. There is also some atelectasis of portions of the left lower lobe. There is complete endobronchial occlusion of the left lower lobe bronchus and proximal segmental bronchi. This is presumably due to secretions. As mentioned above, there are small bilateral pleural effusions. As noted above, there is a moderate-sized pericardial effusion, measuring up to 1 cm in thickness. The heart is enlarged. Air bubbles are seen in the nondependent portion of the left ventricle. A few air bubbles are also seen within the main pulmonary artery. There is a right jugular central venous catheter in place. There is an endotracheal tube in place, tips terminating about 3 cm above the mary. There is a nasogastric tube in place. No mediastinal or hilar mass or adenopathy. Normal caliber pulmonary artery and thoracic aorta. There is a calcified granulomatous right paratracheal node. No axillary or chest wall mass or adenopathy. Visualized portions of the thyroid appear unremarkable. The bones are unremarkable. Abdomen pelvis: The left kidney is markedly abnormal. There is a massive fluid collection surrounding the right kidney which measures 14 cm in length by about 7.6 cm transverse. Although not well-visualized due to lack of IV contrast, there does appear to be some normal renal parenchyma at the center of this. There are metallic foreign bodies in the expected region of the left renal hilum, appearance of which is consistent with vascular embolization coils. There is colonic diverticulosis. There is equivocal mild wall thickening of the sigmoid and distal descending colon. The appendix is not definitely visualized, but no findings to suggest acute appendicitis are evident. No small bowel distention. There is a small amount of ascites fluid present, as mentioned above. There is a nasogastric tube in place, tip terminating at the level of the gastric body. No free intraperitoneal air. Lack of IV contrast limits assessment of the solid organs. The liver demonstrate equivocal scattered areas of mural nodularity. No focal abnormality. The gallbladder is distended, contains a large gallstone. No definite biliary ductal dilatation. The pancreas is unremarkable. The spleen contains a few calcifications. The right adrenal is unremarkable. Left adrenal is not definitely visualized. The right kidney is unremarkable. No mesenteric or retroperitoneal mass or adenopathy. No pelvic mass or adenopathy. There is a Gomez catheter within the bladder. The bones are unremarkable except for degenerative changes of the lower lumbar spine IMPRESSION: Anasarca, as described, with diffuse edema of the subcutaneous, abdominal, and mediastinal fat, ascites, pericardial fluid, and bilateral pleural effusions Chest: Extensive diffuse bilateral pulmonary parenchymal airspace consolidation. This may represent pulmonary edema or infiltrates Atelectasis of portions of the left lower lobe. Complete endobronchial occlusion of the left lower lobe bronchus and proximal segmental bronchi, is likely due to secretions Cardiomegaly Endotracheal tube, central venous catheter, nasogastric tube in good positions Air bubbles within the left ventricle and pulmonary artery, may reflect small air -- emboli from IV access Incidental finding of evidence of old granulomatous disease within a right paratracheal node Abdomen pelvis: Massive fluid collection surrounding the left kidney, probably subcapsular. Presence of vascular embolization coils in the left renal hilum raises possibility of this could be the residua of a prior perinephric hematoma. Correlate with clinical history. Other etiologies also possible. Equivocal mild wall thickening of the sigmoid and distal descending colon. Probably artifact of under distention, but colitis not excludable Diverticulosis Cholelithiasis Incidental findings of Gomez catheter, degenerative spondylosis The CT scanner at [facility] is accredited by the [employer] and the scans are performed using protocols designed to limit radiation exposure to as low as reasonably achievable to attain images of sufficient resolution adequate for diagnostic evaluation.
--- NOTE | 2017-02-28 09:52 | Nephrology Progress Note ---
Assessment/Plan Problem List: (1) Septic shock (2) Respiratory failure, acute (3) ESRF (end stage renal failure) (4) Hypotension (5) Anemia Assessment severe sepsis with shock ? line related Valvular Vegetation acute hypoxemic respiratory failure requiring intubation acute toxic metabolic encephalopathy likely due to sepsis elevated troponin acute anemia requiring blood transfusion Pulmonary edema ESRD, on HD , has permacath left chest Hx of CHF Sever HypoAlbuminemia Plan Hemodynamic support- Antibiotics albumin 5% 500 cc HD as possible, currently hypotensive, permacath is out trial steroids- per orders Subjective ROS Limited/Unobtainable: Yes Constitutional: Reports: malaise Objective Objective Last 24 Hour Vital Signs Date Time Temp Pulse Resp B/P (MAP) Pulse Ox O2 Delivery O2 Flow Rate FiO2 02/28/17 08:48 113 25 50 02/28/17 08:00 115 02/28/17 08:00 50 02/28/17 07:35 117 26 50 02/28/17 07:00 116 26 89/50 96 Mechanical Ventilator 50 02/28/17 06:45 116 26 92/45 96 Mechanical Ventilator 50 02/28/17 06:30 113 26 84/42 96 Mechanical Ventilator 50 02/28/17 06:15 117 26 89/39 96 Mechanical Ventilator 50 02/28/17 06:00 84/42 02/28/17 06:00 118 26 94/50 96 Mechanical Ventilator 50 02/28/17 05:45 118 26 93/52 95 Mechanical Ventilator 50 02/28/17 05:30 119 26 94/54 95 Mechanical Ventilator 50 02/28/17 05:15 120 26 92/52 95 Mechanical Ventilator 50 02/28/17 05:10 115 28 50 02/28/17 05:00 120 26 94/40 95 Mechanical Ventilator 50 02/28/17 04:45 122 26 114/54 95 Mechanical Ventilator 50 02/28/17 04:30 120 26 107/43 95 Mechanical Ventilator 50 02/28/17 04:15 120 26 106/45 95 Mechanical Ventilator 50 02/28/17 04:00 122 02/28/17 04:00 50 02/28/17 04:00 98.7 120 26 95/51 95 Mechanical Ventilator 50 02/28/17 03:45 120 26 93/53 95 Mechanical Ventilator 50 02/28/17 03:34 95/59 02/28/17 03:30 121 26 97/42 95 Mechanical Ventilator 50 02/28/17 03:17 119 27 50 02/28/17 03:15 121 26 100/41 95 Mechanical Ventilator 50 02/28/17 03:00 121 26 121/35 95 Mechanical Ventilator 50 02/28/17 02:45 121 26 121/35 95 Mechanical Ventilator 50 02/28/17 02:30 121 26 113/34 95 Mechanical Ventilator 50 02/28/17 02:15 121 26 113/34 95 Mechanical Ventilator 50 02/28/17 02:00 121 26 101/56 95 Mechanical Ventilator 50 02/28/17 01:45 121 26 101/54 95 Mechanical Ventilator 50 02/28/17 01:30 121 26 109/54 95 Mechanical Ventilator 50 02/28/17 01:24 121 27 50 02/28/17 01:15 120 26 101/53 95 Mechanical Ventilator 50 02/28/17 01:00 119 26 99/53 94 Mechanical Ventilator 50 02/28/17 00:45 119 26 91/61 94 Mechanical Ventilator 50 02/28/17 00:30 122 26 110/47 94 Mechanical Ventilator 50 02/28/17 00:15 122 26 92/71 96 Mechanical Ventilator 50 02/28/17 00:00 76/59 02/28/17 00:00 98.8 119 26 76/55 95 Mechanical Ventilator 50 02/28/17 00:00 121 02/28/17 00:00 50 02/27/17 23:45 120 26 93/47 96 Mechanical Ventilator 50 02/27/17 23:30 120 26 84/45 96 Mechanical Ventilator 50 02/27/17 23:16 98.1 02/27/17 23:15 120 26 104/47 96 Mechanical Ventilator 50 02/27/17 23:06 125 27 50 02/27/17 23:00 122 26 104/47 96 Mechanical Ventilator 50 02/27/17 22:45 124 26 95/51 96 Mechanical Ventilator 50 02/27/17 22:30 124 12 94/39 95 Mechanical Ventilator 50 02/27/17 22:00 123 12 79/26 95 Mechanical Ventilator 50 02/27/17 21:45 123 12 107/21 95 Mechanical Ventilator 50 02/27/17 21:15 119 12 111/64 95 Mechanical Ventilator 50 02/27/17 21:00 123 12 122/36 94 Mechanical Ventilator 50 02/27/17 20:56 111 26 50 02/27/17 20:45 119 12 122/36 95 Mechanical Ventilator 50 02/27/17 20:30 119 12 111/64 95 Mechanical Ventilator 50 02/27/17 20:15 120 12 112/56 95 Mechanical Ventilator 50 02/27/17 20:00 98.1 120 12 115/49 95 Mechanical Ventilator 50 02/27/17 20:00 50 02/27/17 20:00 123 02/27/17 19:55 112/56 02/27/17 19:45 120 12 112/56 95 Mechanical Ventilator 50 02/27/17 19:30 120 12 112/56 95 Mechanical Ventilator 50 02/27/17 19:27 108 25 50 02/27/17 19:00 106 12 87/48 95 Mechanical Ventilator 50 02/27/17 18:30 105 12 108/62 95 Mechanical Ventilator 50 02/27/17 18:08 114 12 85/43 95 Mechanical Ventilator 50 02/27/17 17:30 123 12 125/42 95 Mechanical Ventilator 50 02/27/17 17:17 112 20 30 02/27/17 17:00 124 12 138/56 95 Mechanical Ventilator 50 02/27/17 16:30 98.2 129 12 115/64 95 Mechanical Ventilator 50 02/27/17 16:00 40 02/27/17 16:00 74 02/27/17 15:30 107 17 118/85 94 Mechanical Ventilator 30 02/27/17 15:00 99 17 107/59 94 Mechanical Ventilator 30 02/27/17 14:30 102 17 103/48 94 Mechanical Ventilator 30 02/27/17 14:00 105 17 98/52 94 Mechanical Ventilator 30 02/27/17 13:30 108 17 102/41 94 Mechanical Ventilator 30 02/27/17 13:25 92 20 30 02/27/17 13:00 100 17 88/63 94 Mechanical Ventilator 30 02/27/17 12:30 99 17 93/37 94 Mechanical Ventilator 30 02/27/17 12:05 76/44 02/27/17 12:00 98.3 97 17 97/45 94 Mechanical Ventilator 30 02/27/17 12:00 30 02/27/17 12:00 86 02/27/17 11:30 93 17 92/40 94 Mechanical Ventilator 30 02/27/17 11:00 86 17 101/54 94 Mechanical Ventilator 30 02/27/17 10:34 95 19 30 12/5/17 10:30 94 16 99/54 94 Mechanical Ventilator 30 02/27/17 10:00 87 16 99/38 94 Mechanical Ventilator 30 Intake and Output 02/28/17 03/01/17 19:00 07:00 Intake Total 404.14 ml Output Total 0 ml Balance 404.14 ml Intake IV Total 384.14 ml Tube Feeding 20 ml Output Urine Total 0 ml Laboratory Tests 02/28/17 05:00: White Blood Count 43.5*H, Red Blood Count 3.35L, Hemoglobin 9.2L, Hematocrit 29.6L, Mean Corpuscular Volume 88, Mean Corpuscular Hemoglobin 27.5, Mean Corpuscular Hemoglobin Concent 31.1L, Red Cell Distribution Width 19.1H, Platelet Count 37L, Mean Platelet Volume 14.5H, Neutrophils (%) (Auto) , Lymphocytes (%) (Auto) , Monocytes (%) (Auto) , Eosinophils (%) (Auto) , Basophils (%) (Auto) , Differential Total Cells Counted 100, Neutrophils % ( Manual) 94H, Lymphocytes % (Manual) 3L, Monocytes % (Manual) 3, Eosinophils % ( Manual) 0, Basophils % (Manual) 0, Band Neutrophils 0, Platelet Estimate DecreasedL, Platelet Morphology Normal, Hypochromasia 1+, Anisocytosis 1+, Sodium Level 130L, Potassium Level 4.4, Chloride Level 99, Carbon Dioxide Level 17L, Anion Gap 14, Blood Urea Nitrogen 45H, Creatinine 3.0H, Estimat Glomerular Filtration Rate 15.8, Glucose Level 168H, Uric Acid 6.1, Calcium Level 6.5L, Phosphorus Level 4.1, Magnesium Level 1.6L, Total Bilirubin 0.7, Gamma Glutamyl Transpeptidase 74, Aspartate Amino Transf (AST/SGOT) 43H, Alanine Aminotransferase (ALT/SGPT) 10L, Alkaline Phosphatase 182H, C-Reactive Protein, Quantitative 15.4H, Pro-B-Type Natriuretic Peptide > 04664N, Total Protein 4.5L , Albumin 1.3L, Globulin 3.2, Albumin/Globulin Ratio 0.4L, Random Vancomycin Level 16.4 Height (Feet): 5 Height (Inches): 7.00 Weight (Pounds): 168 General Appearance: no apparent distress Cardiovascular: tachycardia Respiratory/Chest: decreased breath sounds Abdomen: distended FOULADIAN,JAQUELINE Feb 28, 2017 09:52
[2017-02-28] MEDS: Vancomycin oral 125mg/2.5ml NG SCH ×2 (10:05→17:00)
[2017-02-28] MEDS: Pantoprazole Inj IVP SCH (10:05)
--- NOTE | 2017-02-28 10:15 | Infectious Diseases Prog Note ---
Assessment/Plan Assessment/Plan Abx: IV Vancomycin 02/25- Amikacin 02/25-02/27 Levaquin x1 02/25 Flagyl x1 03/07 Daptomycin x1 02/26 Assessment: Septic shock 2ry to persistent high grade staph bacteremia- 2ry to line infection- ?MV endocarditis per TTE findings and presumed L renal abscess, PNA- s/p R tunned HD cath removal 02/26(pus expressed) -Bcx 02/25 06/27 MRSA (S Vanco <0.5); Bcx 02/26 06/27 MRSA (1 set peripheral, 1 set HD cath), 02/27 NTD x4 -cath tip- few GPC gram stain; cx p -CXR: Vascular and interstitial prominence demonstrated with cardiomegaly -2d Echo: EF 55%, Heavy thickened MV leaflets with normal excursion, echogenic material noted on posterior MV leaflet, cannot exclude vegetation. -CT chest abd/p: Anasarca, as described, with diffuse edema of the subcutaneous , abdominal, and mediastinal fat, ascites, pericardial fluid, and bilateral pleural effusions. Extensive diffuse bilateral pulmonary parenchymal airspace consolidation. This may represent pulmonary edema or infiltrates. Atelectasis of portions of the left lower lobe. Complete endobronchial occlusion of the left lower lobe bronchus and proximal segmental bronchi, is likely due to secretions. Cardiomegaly. Endotracheal tube, central venous catheter, nasogastric tube in good positions. Air bubbles within the left ventricle and pulmonary artery, may reflect small air emboli from IV access. Incidental finding of evidence of old granulomatous disease within a right. paratracheal node. Massive fluid collection surrounding the left kidney, probably subcapsular . Presence of vascular embolization coils in the left renal hilum raises possibility of this could be the residua of a prior perinephric hematoma. Correlate with clinical history. Other etiologies also possible. Equivocal mild wall thickening of the sigmoid and distal descending colon. Probably artifact of under distention, but colitis not excludable. Diverticulosis. Cholelithiasis Acute respiratory failure s/p intubation- 2ry to Sepsis and CHF, PNA Hyperleukocytosis, persistent- likely 2ry to undrained abscess FEver- improving Cholelithiasis- ?cholecystitis -CT: The gallbladder is distended, contains a large gallstone. No definite biliary ductal dilatation. B/l knee synovitis- r/o septic arthritis Troponinemia> NSTEMI 1 vs 2- improving Thrombocytopenia, worsening Hx of Cdiff- unclear when and tx -No BM here, has abd pain- -abd xray: Single prominent gas-filled bowel loop is seen in the midabdomen, probably transverse colon, appearance nonspecific. -Cdiff pending Sacral decubitus, superficial- no signs of infection -wound cx: ESBL E.coli, S.aureus, Strep sp ESRD on HD T//S HTN, chronic dCHF, CKD, HLD HUS, muscle wasting/atrophy, jail resident Plan: -Continue IV Vancomycin #4 MRSA bacteremia/presumed endocarditis/abscess and add Ertapenem for ESBL in wound (lower suspicion for infected wound but given sepsis will favor treatment) -02/27 SP IV Amikacin #3 -02/26 SP Daptomycin x1 (to achieve therapeutic levels quicker) -Continue prophylatic PO Vancomycin for Cdiff while on abx -f/u Repeat Bcx -IR drainage of L renal Fluid collection, will need platelets transfusion and Urology evaluation -Ok for placement of temporary HD cath for HD -Please await at least 48-72hrs of negative Bcx and source control of possible renal abscess for permanent HD cath -Will need DORIS when more stable given echo findings -f/u cx -Monitor CBC/BMP, temperatures Thank you for this consultation. Will continue to follow along with you. Discussed with RN and Dr Cason and IR. Subjective Allergies: Coded Allergies: PENICILLINS (Verified Allergy, Unknown, 02/25/17) PIPERACILLIN (Verified Allergy, Unknown, 02/25/17) TAZOBACTAM (Verified Allergy, Unknown, 02/25/17) Subjective afebrile in 36hrs 50% FIo2 tachycardia improving CT with abnormal findings including Massive L renal collection worsening leukocytosis repeat Bcx 02/27 NTD Objective Vital Signs Last 24 Hour Vital Signs Date Time Temp Pulse Resp B/P (MAP) Pulse Ox O2 Delivery O2 Flow Rate FiO2 02/28/17 09:30 112 26 90/50 100 Mechanical Ventilator 50 02/28/17 09:15 111 26 89/48 100 Mechanical Ventilator 50 02/28/17 09:00 112 26 90/50 98 Mechanical Ventilator 50 02/28/17 08:48 113 25 50 02/28/17 08:45 113 26 93/61 100 Mechanical Ventilator 50 02/28/17 08:30 113 26 96/51 100 Mechanical Ventilator 50 02/28/17 08:15 115 26 93/35 99 Mechanical Ventilator 50 02/28/17 08:00 98.6 117 26 111/68 98 Mechanical Ventilator 50 02/28/17 08:00 115 02/28/17 08:00 50 02/28/17 07:45 118 26 92/52 98 Mechanical Ventilator 50 02/28/17 07:35 117 26 50 02/28/17 07:30 116 26 86/53 97 Mechanical Ventilator 50 02/28/17 07:00 116 26 89/50 96 Mechanical Ventilator 50 02/28/17 06:45 116 26 92/45 96 Mechanical Ventilator 50 02/28/17 06:30 113 26 84/42 96 Mechanical Ventilator 50 02/28/17 06:15 117 26 89/39 96 Mechanical Ventilator 50 02/28/17 06:00 84/42 02/28/17 06:00 118 26 94/50 96 Mechanical Ventilator 50 02/28/17 05:45 118 26 93/52 95 Mechanical Ventilator 50 02/28/17 05:30 119 26 94/54 95 Mechanical Ventilator 50 02/28/17 05:15 120 26 92/52 95 Mechanical Ventilator 50 02/28/17 05:10 115 28 50 02/28/17 05:00 120 26 94/40 95 Mechanical Ventilator 50 02/28/17 04:45 122 26 114/54 95 Mechanical Ventilator 50 02/28/17 04:30 120 26 107/43 95 Mechanical Ventilator 50 02/28/17 04:15 120 26 106/45 95 Mechanical Ventilator 50 02/28/17 04:00 122 02/28/17 04:00 50 02/28/17 04:00 98.7 120 26 95/51 95 Mechanical Ventilator 50 02/28/17 03:45 120 26 93/53 95 Mechanical Ventilator 50 02/28/17 03:34 95/59 02/28/17 03:30 121 26 97/42 95 Mechanical Ventilator 50 02/28/17 03:17 119 27 50 02/28/17 03:15 121 26 100/41 95 Mechanical Ventilator 50 02/28/17 03:00 121 26 121/35 95 Mechanical Ventilator 50 02/28/17 02:45 121 26 121/35 95 Mechanical Ventilator 50 02/28/17 02:30 121 26 113/34 95 Mechanical Ventilator 50 02/28/17 02:15 121 26 113/34 95 Mechanical Ventilator 50 02/28/17 02:00 121 26 101/56 95 Mechanical Ventilator 50 02/28/17 01:45 121 26 101/54 95 Mechanical Ventilator 50 02/28/17 01:30 121 26 109/54 95 Mechanical Ventilator 50 02/28/17 01:24 121 27 50 02/28/17 01:15 120 26 101/53 95 Mechanical Ventilator 50 02/28/17 01:00 119 26 99/53 94 Mechanical Ventilator 50 02/28/17 00:45 119 26 91/61 94 Mechanical Ventilator 50 02/28/17 00:30 122 26 110/47 94 Mechanical Ventilator 50 02/28/17 00:15 122 26 92/71 96 Mechanical Ventilator 50 02/28/17 00:00 76/59 02/28/17 00:00 98.8 119 26 76/55 95 Mechanical Ventilator 50 02/28/17 00:00 121 02/28/17 00:00 50 02/27/17 23:45 120 26 93/47 96 Mechanical Ventilator 50 02/27/17 23:30 120 26 84/45 96 Mechanical Ventilator 50 02/27/17 23:16 98.1 02/27/17 23:15 120 26 104/47 96 Mechanical Ventilator 50 02/27/17 23:06 125 27 50 02/27/17 23:00 122 26 104/47 96 Mechanical Ventilator 50 02/27/17 22:45 124 26 95/51 96 Mechanical Ventilator 50 02/27/17 22:30 124 12 94/39 95 Mechanical Ventilator 50 02/27/17 22:00 123 12 79/26 95 Mechanical Ventilator 50 02/27/17 21:45 123 12 107/21 95 Mechanical Ventilator 50 02/27/17 21:15 119 12 111/64 95 Mechanical Ventilator 50 02/27/17 21:00 123 12 122/36 94 Mechanical Ventilator 50 02/27/17 20:56 111 26 50 02/27/17 20:45 119 12 122/36 95 Mechanical Ventilator 50 02/27/17 20:30 119 12 111/64 95 Mechanical Ventilator 50 02/27/17 20:15 120 12 112/56 95 Mechanical Ventilator 50 02/27/17 20:00 98.1 120 12 115/49 95 Mechanical Ventilator 50 02/27/17 20:00 50 12/5/17 20:00 123 02/27/17 19:55 112/56 02/27/17 19:45 120 12 112/56 95 Mechanical Ventilator 50 02/27/17 19:30 120 12 112/56 95 Mechanical Ventilator 50 02/27/17 19:27 108 25 50 02/27/17 19:00 106 12 87/48 95 Mechanical Ventilator 50 02/27/17 18:30 105 12 108/62 95 Mechanical Ventilator 50 02/27/17 18:08 114 12 85/43 95 Mechanical Ventilator 50 02/27/17 17:30 123 12 125/42 95 Mechanical Ventilator 50 02/27/17 17:17 112 20 30 02/27/17 17:00 124 12 138/56 95 Mechanical Ventilator 50 02/27/17 16:30 98.2 129 12 115/64 95 Mechanical Ventilator 50 02/27/17 16:00 40 02/27/17 16:00 74 02/27/17 15:30 107 17 118/85 94 Mechanical Ventilator 30 02/27/17 15:00 99 17 107/59 94 Mechanical Ventilator 30 02/27/17 14:30 102 17 103/48 94 Mechanical Ventilator 30 02/27/17 14:00 105 17 98/52 94 Mechanical Ventilator 30 02/27/17 13:30 108 17 102/41 94 Mechanical Ventilator 30 02/27/17 13:25 92 20 30 02/27/17 13:00 100 17 88/63 94 Mechanical Ventilator 30 02/27/17 12:30 99 17 93/37 94 Mechanical Ventilator 30 02/27/17 12:05 76/44 02/27/17 12:00 98.3 97 17 97/45 94 Mechanical Ventilator 30 02/27/17 12:00 30 02/27/17 12:00 86 02/27/17 11:30 93 17 92/40 94 Mechanical Ventilator 30 02/27/17 11:00 86 17 101/54 94 Mechanical Ventilator 30 02/27/17 10:34 95 19 30 02/27/17 10:30 94 16 99/54 94 Mechanical Ventilator 30 02/27/17 10:00 87 16 99/38 94 Mechanical Ventilator 30 Height (Feet): 5 Height (Inches): 7.00 Weight (Pounds): 168 Objective Status: sedated, other Condition: critical HEENT: atraumatic, normocephalic, other - OP with ET in palce, intact Neck: other - RIJ TL intact Lungs: clear, other -s/p removal R HD cath Heart: HR/BP unstable Abdomen: soft, non-tender, active bowel sounds Extremities: no C/C/E Microbiology Date/Time Source Procedure Growth Status 02/27/17 03:55 Blood Blood Culture - Preliminary NO GROWTH AFTER 24 HOURS Resulted 02/27/17 03:50 Blood Blood Culture - Preliminary NO GROWTH AFTER 24 HOURS Resulted 02/26/17 11:10 Blood Blood Culture - Preliminary Staphylococcus Aureus Resulted 02/26/17 10:50 Blood Blood Culture - Preliminary Staphylococcus Aureus Resulted 02/26/17 12:00 Wound Gram Stain - Final Resulted 02/26/17 12:00 Wound Wound Culture Pending Resulted 02/25/17 19:45 Nasal Nares Influenza Types A,B Antigen (YANY) - Final Complete 02/26/17 04:00 Sacral Wound Gram Stain - Final Resulted 02/26/17 04:00 Wound Culture - Preliminary Escherichia Coli - Esbl Staphylococcus Aureus Strep Species, Gamma-Hemolytic Resulted Laboratory Tests Test 02/28/17 05:00 White Blood Count 43.5 K/UL (4.8-10.8) *H Red Blood Count 3.35 M/UL (4.20-5.40) L Hemoglobin 9.2 G/DL (12.0-16.0) L Hematocrit 29.6 % (37.0-47.0) L Mean Corpuscular Volume 88 FL (80-99) Mean Corpuscular Hemoglobin 27.5 PG (27.0-31.0) Mean Corpuscular Hemoglobin Concent 31.1 G/DL (32.0-36.0) L Red Cell Distribution Width 19.1 % (11.6-14.8) H Platelet Count 37 K/UL (150-450) L Mean Platelet Volume 14.5 FL (6.5-10.1) H Neutrophils (%) (Auto) % (45.0-75.0) Lymphocytes (%) (Auto) % (20.0-45.0) Monocytes (%) (Auto) % (1.0-10.0) Eosinophils (%) (Auto) % (0.0-3.0) Basophils (%) (Auto) % (0.0-2.0) Differential Total Cells Counted 100 Neutrophils % (Manual) 94 % (45-75) H Lymphocytes % (Manual) 3 % (20-45) L Monocytes % (Manual) 3 % (1-10) Eosinophils % (Manual) 0 % (0-3) Basophils % (Manual) 0 % (0-2) Band Neutrophils 0 % (0-8) Platelet Estimate Decreased L Platelet Morphology Normal Hypochromasia 1+ Anisocytosis 1+ Sodium Level 130 MMOL/L (136-145) L Potassium Level 4.4 MMOL/L (3.5-5.1) Chloride Level 99 MMOL/L (98-107) Carbon Dioxide Level 17 MMOL/L (21-32) L Anion Gap 14 mmol/L (5-15) Blood Urea Nitrogen 45 mg/dL (7-18) H Creatinine 3.0 MG/DL (0.55-1.30) H Estimat Glomerular Filtration Rate 15.8 mL/min (>60) Glucose Level 168 MG/DL (74-106) H Uric Acid 6.1 MG/DL (2.6-7.2) Calcium Level 6.5 MG/DL (8.5-10.1) L Phosphorus Level 4.1 MG/DL (2.5-4.9) Magnesium Level 1.6 MG/DL (1.8-2.4) L Total Bilirubin 0.7 MG/DL (0.2-1.0) Gamma Glutamyl Transpeptidase 74 U/L (5-85) Aspartate Amino Transf (AST/SGOT) 43 U/L (15-37) H Alanine Aminotransferase (ALT/SGPT) 10 U/L (12-78) L Alkaline Phosphatase 182 U/L (46-116) H C-Reactive Protein, Quantitative 15.4 mg/dL (0.00-0.90) H Pro-B-Type Natriuretic Peptide > 12967 pg/mL (0-125) H Total Protein 4.5 G/DL (6.4-8.2) L Albumin 1.3 G/DL (3.4-5.0) L Globulin 3.2 g/dL Albumin/Globulin Ratio 0.4 (1.0-2.7) L Random Vancomycin Level 16.4 ug/mL Current Medications Medications (Trade) Dose Ordered Sig/Nina Route PRN Reason Start Time Stop Time Status Last Admin Dose Admin Acetaminophen (Tylenol) 650 mg Q4H PRN ORAL fever 02/25/17 15:15 03/27/17 15:14 02/26/17 23:37 Albumin Human 500 ml @ 0 mls/hr Q0M ONCE IV 02/28/17 10:00 02/28/17 10:01 Albuterol/ Ipratropium (Albuterol/ Ipratropium) 3 ml Q4H PRN HHN Shortness of Breath 02/25/17 15:15 03/02/17 15:14 Chlorhexidine Gluconate (Poonam-Hex 2%) 1 applic DAILY@2000 TOPIC 02/26/17 22:00 03/28/17 21:59 02/27/17 19:53 Heparin Sodium (Porcine) (Heparin 5000 units/ml) 5,000 units EVERY 12 HOURS SUBQ 02/25/17 21:00 03/27/17 20:59 Levothyroxine Sodium (Synthroid) 50 mcg ACBREAKFAST ORAL 02/26/17 06:30 03/28/17 06:29 02/28/17 06:31 Lorazepam (Ativan 2mg/ml 1ml) 2 mg Q2H PRN IV For Anxiety 02/25/17 15:15 03/04/17 15:14 Morphine Sulfate (Morphine Sulfate) 4 mg Q4H PRN IVP Severe Pain (Pain Scale 7-10) 02/25/17 15:15 03/04/17 15:14 02/27/17 22:46 Norepinephrine Bitartrate 8 mg/ Dextrose 558 ml @ 0 mls/hr Q24H IV 02/26/17 11:15 03/28/17 11:14 02/28/17 03:34 Ondansetron HCl (Zofran) 4 mg Q6H PRN IVP Nausea & Vomiting 02/25/17 15:15 03/27/17 15:14 Pantoprazole (Protonix) 40 mg DAILY IVP 02/26/17 09:00 03/28/17 08:59 02/27/17 08:45 Polyethylene Glycol (Miralax) 17 gm DAILYPRN PRN ORAL Constipation 02/25/17 15:15 03/27/17 15:14 Sodium Chloride 1,000 ml @ 100 mls/hr Q10H IVLG 02/25/17 16:45 03/27/17 16:44 12/6/17 07:18 Vancomycin HCl (Vanco rx to dose) 1 ea DAILY PRN MISC RX TO DOSE 02/26/17 07:15 03/28/17 07:14 Vancomycin HCl (Vancomycin) 125 mg BID NG 02/26/17 16:00 03/05/17 15:59 02/27/17 18:06 Vancomycin HCl 1 gm/Dextrose 275 ml @ 183.708 mls/hr ONCE ONCE IVPB 02/28/17 09:00 02/28/17 10:29 Anamaria Davalos M.D. Feb 28, 2017 10:15
[2017-02-28 10:26] LABS: INR 1.3 (0.9-1.1); PROTHROMBIN TIME 13.4 SEC (9.30-11.50)
--- NOTE | 2017-02-28 11:05 | Pulmonolgy Critical Care Note ---
Critical Care - Asmt/Plan Problems: (1) ESRF (end stage renal failure) (2) Respiratory failure, acute (3) Septic shock (4) Altered level of consciousness (5) Hypotension (6) PVD (peripheral vascular disease) Respiratory: monitor respiratory rate, adjust FIO2, CXR Cardiac: continue to monitor HR/BP Renal: F/U I&O Infectious Disease: check cultures, continue antibiotics Gastrointestinal: continue feedings/current rate, adjust feedings Endocrine: monitor blood sugar, check TSH, continue sliding scale insulin Hematologic: monitor H/H, transfuse if hgb<8.5 Neurologic: PRN Ativan, PRN Morphine, keep patient comfortable Prophylaxis: Protonix, Heparin Notes Reviewed: cardio Discussed with: nurses, consultants, skilled nursing case managercustomer manager - Objective Last 24 Hour Vital Signs Date Time Temp Pulse Resp B/P (MAP) Pulse Ox O2 Delivery O2 Flow Rate FiO2 02/28/17 09:30 112 26 90/50 100 Mechanical Ventilator 50 02/28/17 09:15 111 26 89/48 100 Mechanical Ventilator 50 02/28/17 09:00 112 26 90/50 98 Mechanical Ventilator 50 02/28/17 08:48 113 25 50 02/28/17 08:45 113 26 93/61 100 Mechanical Ventilator 50 02/28/17 08:30 113 26 96/51 100 Mechanical Ventilator 50 02/28/17 08:15 115 26 93/35 99 Mechanical Ventilator 50 02/28/17 08:00 98.6 117 26 111/68 98 Mechanical Ventilator 50 02/28/17 08:00 115 02/28/17 08:00 50 02/28/17 07:45 118 26 92/52 98 Mechanical Ventilator 50 02/28/17 07:35 117 26 50 02/28/17 07:30 116 26 86/53 97 Mechanical Ventilator 50 02/28/17 07:00 116 26 89/50 96 Mechanical Ventilator 50 02/28/17 06:45 116 26 92/45 96 Mechanical Ventilator 50 02/28/17 06:30 113 26 84/42 96 Mechanical Ventilator 50 02/28/17 06:15 117 26 89/39 96 Mechanical Ventilator 50 02/28/17 06:00 84/42 02/28/17 06:00 118 26 94/50 96 Mechanical Ventilator 50 02/28/17 05:45 118 26 93/52 95 Mechanical Ventilator 50 02/28/17 05:30 119 26 94/54 95 Mechanical Ventilator 50 02/28/17 05:15 120 26 92/52 95 Mechanical Ventilator 50 02/28/17 05:10 115 28 50 02/28/17 05:00 120 26 94/40 95 Mechanical Ventilator 50 02/28/17 04:45 122 26 114/54 95 Mechanical Ventilator 50 02/28/17 04:30 120 26 107/43 95 Mechanical Ventilator 50 02/28/17 04:15 120 26 106/45 95 Mechanical Ventilator 50 02/28/17 04:00 122 02/28/17 04:00 50 02/28/17 04:00 98.7 120 26 95/51 95 Mechanical Ventilator 50 02/28/17 03:45 120 26 93/53 95 Mechanical Ventilator 50 02/28/17 03:34 95/59 02/28/17 03:30 121 26 97/42 95 Mechanical Ventilator 50 02/28/17 03:17 119 27 50 02/28/17 03:15 121 26 100/41 95 Mechanical Ventilator 50 02/28/17 03:00 121 26 121/35 95 Mechanical Ventilator 50 02/28/17 02:45 121 26 121/35 95 Mechanical Ventilator 50 02/28/17 02:30 121 26 113/34 95 Mechanical Ventilator 50 02/28/17 02:15 121 26 113/34 95 Mechanical Ventilator 50 02/28/17 02:00 121 26 101/56 95 Mechanical Ventilator 50 02/28/17 01:45 121 26 101/54 95 Mechanical Ventilator 50 02/28/17 01:30 121 26 109/54 95 Mechanical Ventilator 50 02/28/17 01:24 121 27 50 02/28/17 01:15 120 26 101/53 95 Mechanical Ventilator 50 02/28/17 01:00 119 26 99/53 94 Mechanical Ventilator 50 02/28/17 00:45 119 26 91/61 94 Mechanical Ventilator 50 02/28/17 00:30 122 26 110/47 94 Mechanical Ventilator 50 02/28/17 00:15 122 26 92/71 96 Mechanical Ventilator 50 02/28/17 00:00 76/59 02/28/17 00:00 98.8 119 26 76/55 95 Mechanical Ventilator 50 02/28/17 00:00 121 02/28/17 00:00 50 02/27/17 23:45 120 26 93/47 96 Mechanical Ventilator 50 02/27/17 23:30 120 26 84/45 96 Mechanical Ventilator 50 02/27/17 23:16 98.1 02/27/17 23:15 120 26 104/47 96 Mechanical Ventilator 50 02/27/17 23:06 125 27 50 02/27/17 23:00 122 26 104/47 96 Mechanical Ventilator 50 02/27/17 22:45 124 26 95/51 96 Mechanical Ventilator 50 02/27/17 22:30 124 12 94/39 95 Mechanical Ventilator 50 02/27/17 22:00 123 12 79/26 95 Mechanical Ventilator 50 02/27/17 21:45 123 12 107/21 95 Mechanical Ventilator 50 02/27/17 21:15 119 12 111/64 95 Mechanical Ventilator 50 02/27/17 21:00 123 12 122/36 94 Mechanical Ventilator 50 02/27/17 20:56 111 26 50 02/27/17 20:45 119 12 122/36 95 Mechanical Ventilator 50 02/27/17 20:30 119 12 111/64 95 Mechanical Ventilator 50 02/27/17 20:15 120 12 112/56 95 Mechanical Ventilator 50 02/27/17 20:00 98.1 120 12 115/49 95 Mechanical Ventilator 50 02/27/17 20:00 50 02/27/17 20:00 123 02/27/17 19:55 112/56 02/27/17 19:45 120 12 112/56 95 Mechanical Ventilator 50 02/27/17 19:30 120 12 112/56 95 Mechanical Ventilator 50 02/27/17 19:27 108 25 50 02/27/17 19:00 106 12 87/48 95 Mechanical Ventilator 50 02/27/17 18:30 105 12 108/62 95 Mechanical Ventilator 50 02/27/17 18:08 114 12 85/43 95 Mechanical Ventilator 50 02/27/17 17:30 123 12 125/42 95 Mechanical Ventilator 50 02/27/17 17:17 112 20 30 02/27/17 17:00 124 12 138/56 95 Mechanical Ventilator 50 02/27/17 16:30 98.2 129 12 115/64 95 Mechanical Ventilator 50 02/27/17 16:00 40 02/27/17 16:00 74 02/27/17 15:30 107 17 118/85 94 Mechanical Ventilator 30 02/27/17 15:00 99 17 107/59 94 Mechanical Ventilator 30 02/27/17 14:30 102 17 103/48 94 Mechanical Ventilator 30 02/27/17 14:00 105 17 98/52 94 Mechanical Ventilator 30 02/27/17 13:30 108 17 102/41 94 Mechanical Ventilator 30 02/27/17 13:25 92 20 30 02/27/17 13:00 100 17 88/63 94 Mechanical Ventilator 30 02/27/17 12:30 99 17 93/37 94 Mechanical Ventilator 30 02/27/17 12:05 76/44 02/27/17 12:00 98.3 97 17 97/45 94 Mechanical Ventilator 30 02/27/17 12:00 30 02/27/17 12:00 86 02/27/17 11:30 93 17 92/40 94 Mechanical Ventilator 30 Status: sedated Condition: critical HEENT: atraumatic, normocephalic Neck: full ROM Lungs: clear, chest wall tender Heart: HR/BP unstable, regular Abdomen: soft, non-tender, active bowel sounds Extremities: no C/C/E Decubiti: location Micro: Microbiology Date/Time Source Procedure Growth Status 02/27/17 03:55 Blood Blood Culture - Preliminary NO GROWTH AFTER 24 HOURS Resulted 02/27/17 03:50 Blood Blood Culture - Preliminary NO GROWTH AFTER 24 HOURS Resulted 02/26/17 11:10 Blood Blood Culture - Preliminary Staphylococcus Aureus Resulted 02/26/17 10:50 Blood Blood Culture - Preliminary Staphylococcus Aureus Resulted 02/26/17 12:00 Other(Specify in comment) Catheter Tip Culture - Preliminary Staphylococcus Aureus Resulted 02/26/17 12:00 Wound Gram Stain - Final Resulted 02/26/17 12:00 Wound Culture - Preliminary Staphylococcus Aureus Resulted 02/25/17 19:45 Nasal Nares Influenza Types A,B Antigen (YANY) - Final Complete 02/26/17 04:00 Sacral Wound Gram Stain - Final Resulted 02/26/17 04:00 Wound Culture - Preliminary Escherichia Coli - Esbl Staphylococcus Aureus Strep Species, Gamma-Hemolytic Resulted Critical Care - Subjective ROS Limited/Unobtainable: No ICU Day: 4 Intubation Day: 4 Condition: critical EKG Rhythm: Sinus Rhythm FI02: 50 Vent Support Breath Rate: 16 Vent Support Mode: AC Vent Tidal Volume: 600 Sputum Amount: Scant PIP: 46 Secretions: small Tube Feeding Amount: 20 I&O: Intake and Output 02/28/17 03/01/17 18:59 06:59 Intake Total 616.21 ml Output Total 0 ml Balance 616.21 ml Intake IV Total 576.21 ml Tube Feeding 40 ml Output Urine Total 0 ml CXR: ct abdomen reviewed, large perinephric fluid collection ET-Tube: 7.5 ET Position: 25 Labs: Laboratory Tests Test 02/28/17 05:00 02/28/17 10:05 White Blood Count 43.5 K/UL (4.8-10.8) *H Red Blood Count 3.35 M/UL (4.20-5.40) L Hemoglobin 9.2 G/DL (12.0-16.0) L Hematocrit 29.6 % (37.0-47.0) L Mean Corpuscular Volume 88 FL (80-99) Mean Corpuscular Hemoglobin 27.5 PG (27.0-31.0) Mean Corpuscular Hemoglobin Concent 31.1 G/DL (32.0-36.0) L Red Cell Distribution Width 19.1 % (11.6-14.8) H Platelet Count 37 K/UL (150-450) L Mean Platelet Volume 14.5 FL (6.5-10.1) H Neutrophils (%) (Auto) % (45.0-75.0) Lymphocytes (%) (Auto) % (20.0-45.0) Monocytes (%) (Auto) % (1.0-10.0) Eosinophils (%) (Auto) % (0.0-3.0) Basophils (%) (Auto) % (0.0-2.0) Differential Total Cells Counted 100 Neutrophils % (Manual) 94 % (45-75) H Lymphocytes % (Manual) 3 % (20-45) L Monocytes % (Manual) 3 % (1-10) Eosinophils % (Manual) 0 % (0-3) Basophils % (Manual) 0 % (0-2) Band Neutrophils 0 % (0-8) Platelet Estimate Decreased L Platelet Morphology Normal Hypochromasia 1+ Anisocytosis 1+ Sodium Level 130 MMOL/L (136-145) L Potassium Level 4.4 MMOL/L (3.5-5.1) Chloride Level 99 MMOL/L (98-107) Carbon Dioxide Level 17 MMOL/L (21-32) L Anion Gap 14 mmol/L (5-15) Blood Urea Nitrogen 45 mg/dL (7-18) H Creatinine 3.0 MG/DL (0.55-1.30) H Estimat Glomerular Filtration Rate 15.8 mL/min (>60) Glucose Level 168 MG/DL (74-106) H Uric Acid 6.1 MG/DL (2.6-7.2) Calcium Level 6.5 MG/DL (8.5-10.1) L Phosphorus Level 4.1 MG/DL (2.5-4.9) Magnesium Level 1.6 MG/DL (1.8-2.4) L Total Bilirubin 0.7 MG/DL (0.2-1.0) Gamma Glutamyl Transpeptidase 74 U/L (5-85) Aspartate Amino Transf (AST/SGOT) 43 U/L (15-37) H Alanine Aminotransferase (ALT/SGPT) 10 U/L (12-78) L Alkaline Phosphatase 182 U/L (46-116) H C-Reactive Protein, Quantitative 15.4 mg/dL (0.00-0.90) H Pro-B-Type Natriuretic Peptide > 91722 pg/mL (0-125) H Total Protein 4.5 G/DL (6.4-8.2) L Albumin 1.3 G/DL (3.4-5.0) L Globulin 3.2 g/dL Albumin/Globulin Ratio 0.4 (1.0-2.7) L Random Vancomycin Level 16.4 ug/mL Prothrombin Time 13.4 SEC (9.30-11.50) H Prothromb Time International Ratio 1.3 (0.9-1.1) H Activated Partial Thromboplast Time 46 SEC (23-33) H BHAVIN PARKER Feb 28, 2017 11:05
[2017-02-28 11:52] LABS: OTHERS PATHOLOGIST COMMENT
[2017-02-28] MEDS: Ertapenem 0.5 GM in NS 55 ML IVPB SCH (12:08)
--- NOTE | 2017-02-28 15:07 | Cardiac Electrophysiology PN ---
Assessment/Plan Assessment/Plan 1. Elevated troponin. Troponin increased from 1 to 3.7 and then to 6.213.Down to 4.4. This is likely due to demand ischemia in this patient with septic shock, bacteremia and endocarditis. The patient is not a candidate for anticoagulation with heparin in view of severe anemia requiring blood transfusion as well as severe thrombocytopenia with platelet count of 50. Her EKG also showed sinus rhythm with nonspecific ST-T wave abnormality with no ST elevation. Obviously cannot give beta-mathieu in view of hypotension.EF 55% by echo 2. Bacteremia and echogenic material on the posterior mitral leaflet that cannot exclude vegetation. We will consider DORIS as needed, but at this time, we will continue IV antibiotics as the patient is not stable. 3. Severe pulmonary regurgitation with PA pressure of 53. 4. Septic shock, on Levophed and IV antibiotic per Dr. Cason. Add Giorgi if maxes out Levophed. 5. Respiratory failure, currently on the ventilator. 6. End-stage renal disease. The PermCath was removed as it was probably the source of infection. Again, the patient remains on IV antibiotics. New HD catheter pending. 7. Severe anemia, status post blood transfusion. DW Dr Dexter and RN Janette ( [place] ) Subjective Subjective In ICU on vent and Levophed 26 mcg. RN at bedside.Scheduled for dialysis line placement and HD and Transfusion. Objective Last 24 Hour Vital Signs Date Time Temp Pulse Resp B/P (MAP) Pulse Ox O2 Delivery O2 Flow Rate FiO2 02/28/17 14:40 107 27 50 02/28/17 14:30 104 26 85/50 100 Mechanical Ventilator 50 02/28/17 14:00 107 26 85/42 100 Mechanical Ventilator 50 02/28/17 13:30 110 26 89/49 100 Mechanical Ventilator 50 02/28/17 12:58 114 29 50 02/28/17 12:30 112 26 103/57 100 Mechanical Ventilator 50 02/28/17 12:00 60 02/28/17 12:00 98.6 114 26 103/57 100 Mechanical Ventilator 50 02/28/17 12:00 113 02/28/17 11:30 112 26 113/57 100 Mechanical Ventilator 50 02/28/17 11:15 115 31 60 02/28/17 11:03 82/45 02/28/17 11:00 116 26 81/40 100 Mechanical Ventilator 50 02/28/17 10:30 113 26 100/57 100 Mechanical Ventilator 50 02/28/17 10:00 113 26 100/65 100 Mechanical Ventilator 50 02/28/17 09:30 112 26 90/50 100 Mechanical Ventilator 50 02/28/17 09:15 111 26 89/48 100 Mechanical Ventilator 50 02/28/17 09:00 112 26 90/50 98 Mechanical Ventilator 50 02/28/17 08:48 113 25 50 02/28/17 08:45 113 26 93/61 100 Mechanical Ventilator 50 02/28/17 08:30 113 26 96/51 100 Mechanical Ventilator 50 02/28/17 08:15 115 26 93/35 99 Mechanical Ventilator 50 02/28/17 08:00 98.6 117 26 111/68 98 Mechanical Ventilator 50 02/28/17 08:00 115 02/28/17 08:00 50 02/28/17 07:45 118 26 92/52 98 Mechanical Ventilator 50 02/28/17 07:35 117 26 50 02/28/17 07:30 116 26 86/53 97 Mechanical Ventilator 50 02/28/17 07:00 116 26 89/50 96 Mechanical Ventilator 50 02/28/17 06:45 116 26 92/45 96 Mechanical Ventilator 50 02/28/17 06:30 113 26 84/42 96 Mechanical Ventilator 50 02/28/17 06:15 117 26 89/39 96 Mechanical Ventilator 50 02/28/17 06:00 84/42 02/28/17 06:00 118 26 94/50 96 Mechanical Ventilator 50 02/28/17 05:45 118 26 93/52 95 Mechanical Ventilator 50 02/28/17 05:30 119 26 94/54 95 Mechanical Ventilator 50 02/28/17 05:15 120 26 92/52 95 Mechanical Ventilator 50 02/28/17 05:10 115 28 50 02/28/17 05:00 120 26 94/40 95 Mechanical Ventilator 50 02/28/17 04:45 122 26 114/54 95 Mechanical Ventilator 50 02/28/17 04:30 120 26 107/43 95 Mechanical Ventilator 50 02/28/17 04:15 120 26 106/45 95 Mechanical Ventilator 50 02/28/17 04:00 122 02/28/17 04:00 50 02/28/17 04:00 98.7 120 26 95/51 95 Mechanical Ventilator 50 02/28/17 03:45 120 26 93/53 95 Mechanical Ventilator 50 02/28/17 03:34 95/59 02/28/17 03:30 121 26 97/42 95 Mechanical Ventilator 50 02/28/17 03:17 119 27 50 02/28/17 03:15 121 26 100/41 95 Mechanical Ventilator 50 02/28/17 03:00 121 26 121/35 95 Mechanical Ventilator 50 02/28/17 02:45 121 26 121/35 95 Mechanical Ventilator 50 02/28/17 02:30 121 26 113/34 95 Mechanical Ventilator 50 02/28/17 02:15 121 26 113/34 95 Mechanical Ventilator 50 02/28/17 02:00 121 26 101/56 95 Mechanical Ventilator 50 02/28/17 01:45 121 26 101/54 95 Mechanical Ventilator 50 02/28/17 01:30 121 26 109/54 95 Mechanical Ventilator 50 02/28/17 01:24 121 27 50 02/28/17 01:15 120 26 101/53 95 Mechanical Ventilator 50 02/28/17 01:00 119 26 99/53 94 Mechanical Ventilator 50 02/28/17 00:45 119 26 91/61 94 Mechanical Ventilator 50 02/28/17 00:30 122 26 110/47 94 Mechanical Ventilator 50 02/28/17 00:15 122 26 92/71 96 Mechanical Ventilator 50 02/28/17 00:00 76/59 02/28/17 00:00 98.8 119 26 76/55 95 Mechanical Ventilator 50 02/28/17 00:00 121 02/28/17 00:00 50 02/27/17 23:45 120 26 93/47 96 Mechanical Ventilator 50 02/27/17 23:30 120 26 84/45 96 Mechanical Ventilator 50 02/27/17 23:16 98.1 02/27/17 23:15 120 26 104/47 96 Mechanical Ventilator 50 02/27/17 23:06 125 27 50 02/27/17 23:00 122 26 104/47 96 Mechanical Ventilator 50 02/27/17 22:45 124 26 95/51 96 Mechanical Ventilator 50 02/27/17 22:30 124 12 94/39 95 Mechanical Ventilator 50 02/27/17 22:00 123 12 79/26 95 Mechanical Ventilator 50 02/27/17 21:45 123 12 107/21 95 Mechanical Ventilator 50 02/27/17 21:15 119 12 111/64 95 Mechanical Ventilator 50 02/27/17 21:00 123 12 122/36 94 Mechanical Ventilator 50 02/27/17 20:56 111 26 50 02/27/17 20:45 119 12 122/36 95 Mechanical Ventilator 50 02/27/17 20:30 119 12 111/64 95 Mechanical Ventilator 50 02/27/17 20:15 120 12 112/56 95 Mechanical Ventilator 50 02/27/17 20:00 98.1 120 12 115/49 95 Mechanical Ventilator 50 02/27/17 20:00 50 02/27/17 20:00 123 02/27/17 19:55 112/56 02/27/17 19:45 120 12 112/56 95 Mechanical Ventilator 50 02/27/17 19:30 120 12 112/56 95 Mechanical Ventilator 50 02/27/17 19:27 108 25 50 02/27/17 19:00 106 12 87/48 95 Mechanical Ventilator 50 02/27/17 18:30 105 12 108/62 95 Mechanical Ventilator 50 02/27/17 18:08 114 12 85/43 95 Mechanical Ventilator 50 02/27/17 17:30 123 12 125/42 95 Mechanical Ventilator 50 02/27/17 17:17 112 20 30 02/27/17 17:00 124 12 138/56 95 Mechanical Ventilator 50 02/27/17 16:30 98.2 129 12 115/64 95 Mechanical Ventilator 50 02/27/17 16:00 40 02/27/17 16:00 74 02/27/17 15:30 107 17 118/85 94 Mechanical Ventilator 30 Intake and Output 02/28/17 03/01/17 19:00 07:00 Intake Total 1355.79 ml Output Total 0 ml Balance 1355.79 ml Intake IV Total 1315.79 ml Tube Feeding 40 ml Output Urine Total 0 ml Laboratory Tests Test 02/28/17 05:00 02/28/17 10:05 White Blood Count 43.5 K/UL (4.8-10.8) *H Red Blood Count 3.35 M/UL (4.20-5.40) L Hemoglobin 9.2 G/DL (12.0-16.0) L Hematocrit 29.6 % (37.0-47.0) L Mean Corpuscular Volume 88 FL (80-99) Mean Corpuscular Hemoglobin 27.5 PG (27.0-31.0) Mean Corpuscular Hemoglobin Concent 31.1 G/DL (32.0-36.0) L Red Cell Distribution Width 19.1 % (11.6-14.8) H Platelet Count 37 K/UL (150-450) L Mean Platelet Volume 14.5 FL (6.5-10.1) H Neutrophils (%) (Auto) % (45.0-75.0) Lymphocytes (%) (Auto) % (20.0-45.0) Monocytes (%) (Auto) % (1.0-10.0) Eosinophils (%) (Auto) % (0.0-3.0) Basophils (%) (Auto) % (0.0-2.0) Differential Total Cells Counted 100 Neutrophils % (Manual) 94 % (45-75) H Lymphocytes % (Manual) 3 % (20-45) L Monocytes % (Manual) 3 % (1-10) Eosinophils % (Manual) 0 % (0-3) Basophils % (Manual) 0 % (0-2) Band Neutrophils 0 % (0-8) Platelet Estimate Decreased L Platelet Morphology Normal Hypochromasia 1+ Anisocytosis 1+ Sodium Level 130 MMOL/L (136-145) L Potassium Level 4.4 MMOL/L (3.5-5.1) Chloride Level 99 MMOL/L (98-107) Carbon Dioxide Level 17 MMOL/L (21-32) L Anion Gap 14 mmol/L (5-15) Blood Urea Nitrogen 45 mg/dL (7-18) H Creatinine 3.0 MG/DL (0.55-1.30) H Estimat Glomerular Filtration Rate 15.8 mL/min (>60) Glucose Level 168 MG/DL (74-106) H Uric Acid 6.1 MG/DL (2.6-7.2) Calcium Level 6.5 MG/DL (8.5-10.1) L Phosphorus Level 4.1 MG/DL (2.5-4.9) Magnesium Level 1.6 MG/DL (1.8-2.4) L Total Bilirubin 0.7 MG/DL (0.2-1.0) Gamma Glutamyl Transpeptidase 74 U/L (5-85) Aspartate Amino Transf (AST/SGOT) 43 U/L (15-37) H Alanine Aminotransferase (ALT/SGPT) 10 U/L (12-78) L Alkaline Phosphatase 182 U/L (46-116) H C-Reactive Protein, Quantitative 15.4 mg/dL (0.00-0.90) H Pro-B-Type Natriuretic Peptide > 91031 pg/mL (0-125) H Total Protein 4.5 G/DL (6.4-8.2) L Albumin 1.3 G/DL (3.4-5.0) L Globulin 3.2 g/dL Albumin/Globulin Ratio 0.4 (1.0-2.7) L Random Vancomycin Level 16.4 ug/mL Prothrombin Time 13.4 SEC (9.30-11.50) H Prothromb Time International Ratio 1.3 (0.9-1.1) H Activated Partial Thromboplast Time 46 SEC (23-33) H Microbiology Date/Time Source Procedure Growth Status 02/27/17 03:55 Blood Blood Culture - Preliminary Resulted 02/27/17 03:50 Blood Blood Culture - Preliminary Resulted 02/26/17 11:10 Blood Blood Culture - Preliminary Staphylococcus Aureus Resulted 02/26/17 10:50 Blood Blood Culture - Preliminary Staphylococcus Aureus Resulted 02/26/17 12:00 Other(Specify in comment) Catheter Tip Culture - Preliminary Staphylococcus Aureus Resulted 02/26/17 12:00 Wound Gram Stain - Final Resulted 02/26/17 12:00 Wound Culture - Preliminary Staphylococcus Aureus Resulted 02/25/17 19:45 Nasal Nares Influenza Types A,B Antigen (YANY) - Final Complete 02/26/17 04:00 Sacral Wound Gram Stain - Final Resulted 02/26/17 04:00 Wound Culture - Preliminary Escherichia Coli - Esbl Staphylococcus Aureus Strep Species, Gamma-Hemolytic Resulted Objective HEAD AND NECK: Shows no JVD, orally intubated with OG tube LUNGS: Decreased breath sounds. CARDIOVASCULAR: Shows regular S1 and S2 with no gallop. ABDOMEN: Soft. EXTREMITIES: 2 plus pitting edema. LOIS ELLISON Feb 28, 2017 15:07
--- NOTE | 2017-02-28 16:00 | General Surgery Progress Note ---
General Surgery-Progress Note Subjective Symptoms: worse Additional Comments wbc up 45k. cultures from cath tip staph A as well as from drainage. Objective Last 24 Hour Vital Signs Date Time Temp Pulse Resp B/P (MAP) Pulse Ox O2 Delivery O2 Flow Rate FiO2 02/28/17 15:30 109 27 91/58 100 Mechanical Ventilator 50 02/28/17 15:00 108 26 82/55 100 Mechanical Ventilator 50 02/28/17 14:40 107 27 50 02/28/17 14:30 104 26 85/50 100 Mechanical Ventilator 50 02/28/17 14:00 107 26 85/42 100 Mechanical Ventilator 50 02/28/17 13:30 110 26 89/49 100 Mechanical Ventilator 50 02/28/17 12:58 114 29 50 02/28/17 12:30 112 26 103/57 100 Mechanical Ventilator 50 02/28/17 12:00 60 02/28/17 12:00 98.6 114 26 103/57 100 Mechanical Ventilator 50 02/28/17 12:00 113 02/28/17 11:30 112 26 113/57 100 Mechanical Ventilator 50 02/28/17 11:15 115 31 60 02/28/17 11:03 82/45 02/28/17 11:00 116 26 81/40 100 Mechanical Ventilator 50 02/28/17 10:30 113 26 100/57 100 Mechanical Ventilator 50 02/28/17 10:00 113 26 100/65 100 Mechanical Ventilator 50 02/28/17 09:30 112 26 90/50 100 Mechanical Ventilator 50 02/28/17 09:15 111 26 89/48 100 Mechanical Ventilator 50 02/28/17 09:00 112 26 90/50 98 Mechanical Ventilator 50 02/28/17 08:48 113 25 50 02/28/17 08:45 113 26 93/61 100 Mechanical Ventilator 50 02/28/17 08:30 113 26 96/51 100 Mechanical Ventilator 50 02/28/17 08:15 115 26 93/35 99 Mechanical Ventilator 50 02/28/17 08:00 98.6 117 26 111/68 98 Mechanical Ventilator 50 02/28/17 08:00 115 02/28/17 08:00 50 02/28/17 07:45 118 26 92/52 98 Mechanical Ventilator 50 02/28/17 07:35 117 26 50 02/28/17 07:30 116 26 86/53 97 Mechanical Ventilator 50 02/28/17 07:00 116 26 89/50 96 Mechanical Ventilator 50 02/28/17 06:45 116 26 92/45 96 Mechanical Ventilator 50 02/28/17 06:30 113 26 84/42 96 Mechanical Ventilator 50 02/28/17 06:15 117 26 89/39 96 Mechanical Ventilator 50 02/28/17 06:00 84/42 02/28/17 06:00 118 26 94/50 96 Mechanical Ventilator 50 02/28/17 05:45 118 26 93/52 95 Mechanical Ventilator 50 02/28/17 05:30 119 26 94/54 95 Mechanical Ventilator 50 02/28/17 05:15 120 26 92/52 95 Mechanical Ventilator 50 02/28/17 05:10 115 28 50 02/28/17 05:00 120 26 94/40 95 Mechanical Ventilator 50 02/28/17 04:45 122 26 114/54 95 Mechanical Ventilator 50 02/28/17 04:30 120 26 107/43 95 Mechanical Ventilator 50 02/28/17 04:15 120 26 106/45 95 Mechanical Ventilator 50 02/28/17 04:00 122 02/28/17 04:00 50 02/28/17 04:00 98.7 120 26 95/51 95 Mechanical Ventilator 50 02/28/17 03:45 120 26 93/53 95 Mechanical Ventilator 50 02/28/17 03:34 95/59 02/28/17 03:30 121 26 97/42 95 Mechanical Ventilator 50 02/28/17 03:17 119 27 50 02/28/17 03:15 121 26 100/41 95 Mechanical Ventilator 50 02/28/17 03:00 121 26 121/35 95 Mechanical Ventilator 50 02/28/17 02:45 121 26 121/35 95 Mechanical Ventilator 50 02/28/17 02:30 121 26 113/34 95 Mechanical Ventilator 50 02/28/17 02:15 121 26 113/34 95 Mechanical Ventilator 50 02/28/17 02:00 121 26 101/56 95 Mechanical Ventilator 50 02/28/17 01:45 121 26 101/54 95 Mechanical Ventilator 50 02/28/17 01:30 121 26 109/54 95 Mechanical Ventilator 50 02/28/17 01:24 121 27 50 02/28/17 01:15 120 26 101/53 95 Mechanical Ventilator 50 02/28/17 01:00 119 26 99/53 94 Mechanical Ventilator 50 02/28/17 00:45 119 26 91/61 94 Mechanical Ventilator 50 02/28/17 00:30 122 26 110/47 94 Mechanical Ventilator 50 02/28/17 00:15 122 26 92/71 96 Mechanical Ventilator 50 02/28/17 00:00 76/59 02/28/17 00:00 98.8 119 26 76/55 95 Mechanical Ventilator 50 02/28/17 00:00 121 02/28/17 00:00 50 02/27/17 23:45 120 26 93/47 96 Mechanical Ventilator 50 02/27/17 23:30 120 26 84/45 96 Mechanical Ventilator 50 02/27/17 23:16 98.1 02/27/17 23:15 120 26 104/47 96 Mechanical Ventilator 50 02/27/17 23:06 125 27 50 02/27/17 23:00 122 26 104/47 96 Mechanical Ventilator 50 02/27/17 22:45 124 26 95/51 96 Mechanical Ventilator 50 02/27/17 22:30 124 12 94/39 95 Mechanical Ventilator 50 02/27/17 22:00 123 12 79/26 95 Mechanical Ventilator 50 02/27/17 21:45 123 12 107/21 95 Mechanical Ventilator 50 02/27/17 21:15 119 12 111/64 95 Mechanical Ventilator 50 02/27/17 21:00 123 12 122/36 94 Mechanical Ventilator 50 02/27/17 20:56 111 26 50 02/27/17 20:45 119 12 122/36 95 Mechanical Ventilator 50 02/27/17 20:30 119 12 111/64 95 Mechanical Ventilator 50 02/27/17 20:15 120 12 112/56 95 Mechanical Ventilator 50 02/27/17 20:00 98.1 120 12 115/49 95 Mechanical Ventilator 50 02/27/17 20:00 50 02/27/17 20:00 123 02/27/17 19:55 112/56 02/27/17 19:45 120 12 112/56 95 Mechanical Ventilator 50 02/27/17 19:30 120 12 112/56 95 Mechanical Ventilator 50 02/27/17 19:27 108 25 50 02/27/17 19:00 106 12 87/48 95 Mechanical Ventilator 50 02/27/17 18:30 105 12 108/62 95 Mechanical Ventilator 50 02/27/17 18:08 114 12 85/43 95 Mechanical Ventilator 50 02/27/17 17:30 123 12 125/42 95 Mechanical Ventilator 50 02/27/17 17:17 112 20 30 02/27/17 17:00 124 12 138/56 95 Mechanical Ventilator 50 02/27/17 16:30 98.2 129 12 115/64 95 Mechanical Ventilator 50 02/27/17 16:00 40 02/27/17 16:00 74 I&O Intake and Output 02/28/17 03/01/17 19:00 07:00 Intake Total 1564.60 ml Output Total 0 ml Balance 1564.60 ml Intake IV Total 1524.60 ml Tube Feeding 40 ml Output Urine Total 0 ml Dressing: dry Wound: clean Laboratory Tests Test 02/28/17 05:00 02/28/17 10:05 White Blood Count 43.5 K/UL (4.8-10.8) *H Red Blood Count 3.35 M/UL (4.20-5.40) L Hemoglobin 9.2 G/DL (12.0-16.0) L Hematocrit 29.6 % (37.0-47.0) L Mean Corpuscular Volume 88 FL (80-99) Mean Corpuscular Hemoglobin 27.5 PG (27.0-31.0) Mean Corpuscular Hemoglobin Concent 31.1 G/DL (32.0-36.0) L Red Cell Distribution Width 19.1 % (11.6-14.8) H Platelet Count 37 K/UL (150-450) L Mean Platelet Volume 14.5 FL (6.5-10.1) H Neutrophils (%) (Auto) % (45.0-75.0) Lymphocytes (%) (Auto) % (20.0-45.0) Monocytes (%) (Auto) % (1.0-10.0) Eosinophils (%) (Auto) % (0.0-3.0) Basophils (%) (Auto) % (0.0-2.0) Differential Total Cells Counted 100 Neutrophils % (Manual) 94 % (45-75) H Lymphocytes % (Manual) 3 % (20-45) L Monocytes % (Manual) 3 % (1-10) Eosinophils % (Manual) 0 % (0-3) Basophils % (Manual) 0 % (0-2) Band Neutrophils 0 % (0-8) Platelet Estimate Decreased L Platelet Morphology Normal Hypochromasia 1+ Anisocytosis 1+ Sodium Level 130 MMOL/L (136-145) L Potassium Level 4.4 MMOL/L (3.5-5.1) Chloride Level 99 MMOL/L (98-107) Carbon Dioxide Level 17 MMOL/L (21-32) L Anion Gap 14 mmol/L (5-15) Blood Urea Nitrogen 45 mg/dL (7-18) H Creatinine 3.0 MG/DL (0.55-1.30) H Estimat Glomerular Filtration Rate 15.8 mL/min (>60) Glucose Level 168 MG/DL (74-106) H Uric Acid 6.1 MG/DL (2.6-7.2) Calcium Level 6.5 MG/DL (8.5-10.1) L Phosphorus Level 4.1 MG/DL (2.5-4.9) Magnesium Level 1.6 MG/DL (1.8-2.4) L Total Bilirubin 0.7 MG/DL (0.2-1.0) Gamma Glutamyl Transpeptidase 74 U/L (5-85) Aspartate Amino Transf (AST/SGOT) 43 U/L (15-37) H Alanine Aminotransferase (ALT/SGPT) 10 U/L (12-78) L Alkaline Phosphatase 182 U/L (46-116) H C-Reactive Protein, Quantitative 15.4 mg/dL (0.00-0.90) H Pro-B-Type Natriuretic Peptide > 40365 pg/mL (0-125) H Total Protein 4.5 G/DL (6.4-8.2) L Albumin 1.3 G/DL (3.4-5.0) L Globulin 3.2 g/dL Albumin/Globulin Ratio 0.4 (1.0-2.7) L Random Vancomycin Level 16.4 ug/mL Prothrombin Time 13.4 SEC (9.30-11.50) H Prothromb Time International Ratio 1.3 (0.9-1.1) H Activated Partial Thromboplast Time 46 SEC (23-33) H Plan Problems: (1) Central venous line infection Assessment & Plan: 62 F with likely infected tunneled right IJ central venous catheter causing septic shock. Catheter removed at bedside without difficulty. upon removal of catheter purulent discharge was noted at insertion site and evacuated. site cleaned and dressings applied. good hemostasis noted. tip sent for culture. discharge sent for culture. cultures Staph A -continue current care and management. -IV abx as per ID thank you for this consultation. will follow with recs. Zac Rodriguez Feb 28, 2017 16:00
[2017-02-28] MEDS: Phenylephrine 50 MG in D5W 245 ML IV SCH (16:19)
--- NOTE | 2017-02-28 16:20 | Diagnostic Imaging Report ---
Indication: DYSPNEA Technique: One view of the chest Comparison: 02/25/2017 Findings: Stable satisfactory positions of endotracheal and nasogastric tubes. Stable satisfactory position of right jugular central venous catheter. Interim development of extensive bilateral diffuse interstitial and airspace disease. Increased left-sided pleural effusion. Heart size remains normal. Impression: Bilateral interstitial and alveolar infiltrates, new or increased since prior study of 02/25/2017 Stable tube and line positions, as described
[2017-02-28 16:48] LABS: PATH BLOOD SMEAR/OMC SENT TO PATHOLOGIST
--- NOTE | 2017-02-28 17:59 | Emergency Room Report ---
Physical Exam Called for code blue 17:15. Initially tachyarrhythmia then asystole. Patient septic on pressors. Magnesium low and some replacement given. K+ normal. Last 24 Hour Vital Signs Date Time Temp Pulse Resp B/P (MAP) Pulse Ox O2 Delivery O2 Flow Rate FiO2 02/28/17 17:00 95/53 02/28/17 16:46 97 30 50 02/28/17 16:19 110 94/58 02/28/17 16:00 110 02/28/17 16:00 98.3 110 20 94/58 100 Mechanical Ventilator 50 02/28/17 16:00 50 02/28/17 15:30 109 27 91/58 100 Mechanical Ventilator 50 02/28/17 15:00 108 26 82/55 100 Mechanical Ventilator 50 02/28/17 14:40 107 27 50 02/28/17 14:30 104 26 85/50 100 Mechanical Ventilator 50 02/28/17 14:00 107 26 85/42 100 Mechanical Ventilator 50 02/28/17 13:30 110 26 89/49 100 Mechanical Ventilator 50 02/28/17 12:58 114 29 50 02/28/17 12:30 112 26 103/57 100 Mechanical Ventilator 50 02/28/17 12:00 60 02/28/17 12:00 98.6 114 26 103/57 100 Mechanical Ventilator 50 02/28/17 12:00 113 02/28/17 11:30 112 26 113/57 100 Mechanical Ventilator 50 02/28/17 11:15 115 31 60 02/28/17 11:03 82/45 02/28/17 11:00 116 26 81/40 100 Mechanical Ventilator 50 02/28/17 10:30 113 26 100/57 100 Mechanical Ventilator 50 02/28/17 10:00 113 26 100/65 100 Mechanical Ventilator 50 02/28/17 09:30 112 26 90/50 100 Mechanical Ventilator 50 02/28/17 09:15 111 26 89/48 100 Mechanical Ventilator 50 02/28/17 09:00 112 26 90/50 98 Mechanical Ventilator 50 02/28/17 08:48 113 25 50 02/28/17 08:45 113 26 93/61 100 Mechanical Ventilator 50 02/28/17 08:30 113 26 96/51 100 Mechanical Ventilator 50 02/28/17 08:15 115 26 93/35 99 Mechanical Ventilator 50 02/28/17 08:00 98.6 117 26 111/68 98 Mechanical Ventilator 50 02/28/17 08:00 115 02/28/17 08:00 50 02/28/17 07:45 118 26 92/52 98 Mechanical Ventilator 50 02/28/17 07:35 117 26 50 02/28/17 07:30 116 26 86/53 97 Mechanical Ventilator 50 02/28/17 07:00 116 26 89/50 96 Mechanical Ventilator 50 02/28/17 06:45 116 26 92/45 96 Mechanical Ventilator 50 02/28/17 06:30 113 26 84/42 96 Mechanical Ventilator 50 02/28/17 06:15 117 26 89/39 96 Mechanical Ventilator 50 02/28/17 06:00 84/42 02/28/17 06:00 118 26 94/50 96 Mechanical Ventilator 50 02/28/17 05:45 118 26 93/52 95 Mechanical Ventilator 50 02/28/17 05:30 119 26 94/54 95 Mechanical Ventilator 50 02/28/17 05:15 120 26 92/52 95 Mechanical Ventilator 50 02/28/17 05:10 115 28 50 02/28/17 05:00 120 26 94/40 95 Mechanical Ventilator 50 02/28/17 04:45 122 26 114/54 95 Mechanical Ventilator 50 02/28/17 04:30 120 26 107/43 95 Mechanical Ventilator 50 02/28/17 04:15 120 26 106/45 95 Mechanical Ventilator 50 02/28/17 04:00 122 02/28/17 04:00 50 02/28/17 04:00 98.7 120 26 95/51 95 Mechanical Ventilator 50 02/28/17 03:45 120 26 93/53 95 Mechanical Ventilator 50 02/28/17 03:34 95/59 02/28/17 03:30 121 26 97/42 95 Mechanical Ventilator 50 02/28/17 03:17 119 27 50 02/28/17 03:15 121 26 100/41 95 Mechanical Ventilator 50 02/28/17 03:00 121 26 121/35 95 Mechanical Ventilator 50 02/28/17 02:45 121 26 121/35 95 Mechanical Ventilator 50 02/28/17 02:30 121 26 113/34 95 Mechanical Ventilator 50 02/28/17 02:15 121 26 113/34 95 Mechanical Ventilator 50 02/28/17 02:00 121 26 101/56 95 Mechanical Ventilator 50 02/28/17 01:45 121 26 101/54 95 Mechanical Ventilator 50 02/28/17 01:30 121 26 109/54 95 Mechanical Ventilator 50 02/28/17 01:24 121 27 50 02/28/17 01:15 120 26 101/53 95 Mechanical Ventilator 50 02/28/17 01:00 119 26 99/53 94 Mechanical Ventilator 50 02/28/17 00:45 119 26 91/61 94 Mechanical Ventilator 50 02/28/17 00:30 122 26 110/47 94 Mechanical Ventilator 50 02/28/17 00:15 122 26 92/71 96 Mechanical Ventilator 50 02/28/17 00:00 76/59 02/28/17 00:00 98.8 119 26 76/55 95 Mechanical Ventilator 50 02/28/17 00:00 121 02/28/17 00:00 50 02/27/17 23:45 120 26 93/47 96 Mechanical Ventilator 50 02/27/17 23:30 120 26 84/45 96 Mechanical Ventilator 50 02/27/17 23:16 98.1 02/27/17 23:15 120 26 104/47 96 Mechanical Ventilator 50 02/27/17 23:06 125 27 50 02/27/17 23:00 122 26 104/47 96 Mechanical Ventilator 50 02/27/17 22:45 124 26 95/51 96 Mechanical Ventilator 50 02/27/17 22:30 124 12 94/39 95 Mechanical Ventilator 50 02/27/17 22:00 123 12 79/26 95 Mechanical Ventilator 50 02/27/17 21:45 123 12 107/21 95 Mechanical Ventilator 50 02/27/17 21:15 119 12 111/64 95 Mechanical Ventilator 50 02/27/17 21:00 123 12 122/36 94 Mechanical Ventilator 50 02/27/17 20:56 111 26 50 02/27/17 20:45 119 12 122/36 95 Mechanical Ventilator 50 02/27/17 20:30 119 12 111/64 95 Mechanical Ventilator 50 02/27/17 20:15 120 12 112/56 95 Mechanical Ventilator 50 02/27/17 20:00 98.1 120 12 115/49 95 Mechanical Ventilator 50 02/27/17 20:00 50 02/27/17 20:00 123 02/27/17 19:55 112/56 02/27/17 19:45 120 12 112/56 95 Mechanical Ventilator 50 02/27/17 19:30 120 12 112/56 95 Mechanical Ventilator 50 02/27/17 19:27 108 25 50 02/27/17 19:00 106 12 87/48 95 Mechanical Ventilator 50 02/27/17 18:30 105 12 108/62 95 Mechanical Ventilator 50 02/27/17 18:08 114 12 85/43 95 Mechanical Ventilator 50 Sp02 EP Interpretation: reviewed, normal General Appearance: obese, other - unresponsive to pain, respiratory effort Eyes: bilateral eye other - gauze covering eyes ENT: other - ET tube Neck: other - no deformity Respiratory: lungs clear, normal breath sounds Cardiovascular #1: other - CPR Cardiovascular #2: 2+ femoral (L) - with CPR Gastrointestinal: decreased bowel sounds, overweight Genitourinary: other - schneider Musculoskeletal: other - flaccid Neurologic: other - resp effort, unresponsive Psychiatric: other - unresponsive Skin: mottled CPR/Code Blue CPR/Code Blue Narrative CPR monitored and directed by me performed by tech. Code called 17:15. Epi X 1 ST on monitor when I arrived. Pulses present. CPR stopped and pulses continued. BP 121/76, HR 129. ROSC 17: 18. ABG by me. pH 7.1 bicarb 12 Metabolic acidosis. Bicarb 2 amps. Pre-arrest rhythm strip reviewed, SVT prior to asystole. Magnesium ordered. EKG, CXR ordered. Medical Decision Making Diagnostic Impression: Primary Impression: Cardiopulmonary arrest Additional Impressions: Tachyarrhythmia Transient asystole Hypomagnesemia Septic shock Metabolic acidosis ER Course Code lyle called for asystole following tachyarrhythmia. See Code Blue report. ROSC 3 min after epi. Bicarb and magnesium ordered. Prognosis poor. Laboratory Tests Test 02/27/17 03:50 02/28/17 05:00 02/28/17 10:05 White Blood Count 39.1 K/UL (4.8-10.8) *H 43.5 K/UL (4.8-10.8) *H Red Blood Count 3.80 M/UL (4.20-5.40) L 3.35 M/UL (4.20-5.40) L Hemoglobin 10.5 G/DL (12.0-16.0) L 9.2 G/DL (12.0-16.0) L Hematocrit 32.5 % (37.0-47.0) L 29.6 % (37.0-47.0) L Mean Corpuscular Volume 86 FL (80-99) 88 FL (80-99) Mean Corpuscular Hemoglobin 27.6 PG (27.0-31.0) 27.5 PG (27.0-31.0) Mean Corpuscular Hemoglobin Concent 32.2 G/DL (32.0-36.0) 31.1 G/DL (32.0-36.0) L Red Cell Distribution Width 18.2 % (11.6-14.8) H 19.1 % (11.6-14.8) H Platelet Count 52 K/UL (150-450) L 37 K/UL (150-450) L Mean Platelet Volume 15.8 FL (6.5-10.1) H 14.5 FL (6.5-10.1) H Neutrophils (%) (Auto) % (45.0-75.0) % (45.0-75.0) Lymphocytes (%) (Auto) % (20.0-45.0) % (20.0-45.0) Monocytes (%) (Auto) % (1.0-10.0) % (1.0-10.0) Eosinophils (%) (Auto) % (0.0-3.0) % (0.0-3.0) Basophils (%) (Auto) % (0.0-2.0) % (0.0-2.0) Differential Total Cells Counted 100 100 Neutrophils % (Manual) 93 % (45-75) H 94 % (45-75) H Lymphocytes % (Manual) 5 % (20-45) L 3 % (20-45) L Monocytes % (Manual) 2 % (1-10) 3 % (1-10) Eosinophils % (Manual) 0 % (0-3) 0 % (0-3) Basophils % (Manual) 0 % (0-2) 0 % (0-2) Band Neutrophils 0 % (0-8) 0 % (0-8) Platelet Estimate Decreased L Decreased L Platelet Morphology Normal Normal Erythrocyte Sedimentation Rate 16 MM/HR (0-30) Sodium Level 133 MMOL/L (136-145) L 130 MMOL/L (136-145) L Potassium Level 4.0 MMOL/L (3.5-5.1) 4.4 MMOL/L (3.5-5.1) Chloride Level 102 MMOL/L (98-107) 99 MMOL/L (98-107) Carbon Dioxide Level 21 MMOL/L (21-32) 17 MMOL/L (21-32) L Anion Gap 10 mmol/L (5-15) 14 mmol/L (5-15) Blood Urea Nitrogen 43 mg/dL (7-18) H 45 mg/dL (7-18) H Creatinine 2.9 MG/DL (0.55-1.30) H 3.0 MG/DL (0.55-1.30) H Estimate Glomerular Filtration Rate 16.5 mL/min (>60) 15.8 mL/min (>60) Glucose Level 182 MG/DL (74-106) H 168 MG/DL (74-106) H Hemoglobin A1c 5.9 % (4.3-6.0) Uric Acid 4.9 MG/DL (2.6-7.2) 6.1 MG/DL (2.6-7.2) Calcium Level 6.6 MG/DL (8.5-10.1) L 6.5 MG/DL (8.5-10.1) L Phosphorus Level 2.8 MG/DL (2.5-4.9) 4.1 MG/DL (2.5-4.9) Magnesium Level 1.4 MG/DL (1.8-2.4) L 1.6 MG/DL (1.8-2.4) L Total Bilirubin 0.9 MG/DL (0.2-1.0) 0.7 MG/DL (0.2-1.0) Gamma Glutamyl Transpeptidase 74 U/L (5-85) 74 U/L (5-85) Aspartate Amino Transferase (AST) 34 U/L (15-37) 43 U/L (15-37) H Alanine Aminotransferase (ALT) 8 U/L (12-78) L 10 U/L (12-78) L Alkaline Phosphatase 221 U/L (46-116) H 182 U/L (46-116) H Ammonia < 3 umol/L (11-32) L Troponin I 4.475 ng/mL (0.000-0.056) C-Reactive Protein, Quantitative 21.9 mg/dL (0.00-0.90) H 15.4 mg/dL (0.00-0.90) H Pro-B-Type Natriuretic Peptide 737804 pg/mL (0-125) H > 49403 pg/mL (0-125) H Total Protein 4.8 G/DL (6.4-8.2) L 4.5 G/DL (6.4-8.2) L Albumin 1.2 G/DL (3.4-5.0) L 1.3 G/DL (3.4-5.0) L Globulin 3.6 g/dL 3.2 g/dL Albumin/Globulin Ratio 0.3 (1.0-2.7) L 0.4 (1.0-2.7) L Triglycerides Level 284 MG/DL (30-150) H Cholesterol Level 131 MG/DL (< 200) LDL Cholesterol 32 mg/dL (<100) HDL Cholesterol 9 MG/DL (40-60) L Cholesterol/HDL Ratio 14.6 (3.3-4.4) H Hypochromasia 1+ Anisocytosis 1+ Random Vancomycin Level 16.4 ug/mL Prothrombin Time 13.4 SEC (9.30-11.50) H Prothrombin Time INR 1.3 (0.9-1.1) H PTT 46 SEC (23-33) H Rhythm Strip Diag. Results EP Interpretation: yes Rhythm: other - tachyarrhythmia 180, unable to determine if SVT vs VT Chest X-Ray Diagnostic Results Chest X-Ray Diagnostic Results : Chest X-Ray Ordered: Yes # of Views/Limited/Complete: 1 View Indication: Other Interpretation: no effusion, no pneumothorax, other - interstitial infiltrates, ET good placement Electronically Signed by: Chapin Hodges MD Last Vital Signs Date Time Temp Pulse Resp B/P (MAP) Pulse Ox O2 Delivery O2 Flow Rate FiO2 02/28/17 17:00 95/53 02/28/17 16:46 97 30 50 02/28/17 16:00 98.3 100 Mechanical Ventilator 02/25/17 13:30 2.0 Status: improved Disposition: ADMITTED INPATIENT Condition: Critical Referrals: ROSANNE POLLARD (PCP) Chapin Hodges M.D. Feb 28, 2017 17:59
[2017-02-28] MEDS ORDERED: Sodium Bicarbonate 50ml Carp IV ONE ×2 (18:00)
[2017-02-28] MEDS ORDERED: Digoxin 0.5mg/2ml Inj IVP ONE (19:05)
[2017-02-28] MEDS: Dyna-Hex 2% Top Sol 2oz TOPIC SCH (20:41)
[2017-03-01] VITALS (48 sets, daily range): BP systolic 86–124; BP diastolic 34–79
[2017-03-01] MEDS: dilTIAZem HCl 25mg/5ml Inj IVP PRN ×2 (02:10→14:04)
[2017-03-01] MEDS: Phenylephrine 50 MG in D5W 245 ML IV SCH ×3 (02:30→20:12)
[2017-03-01] MEDS: Norepinephrine Bitartrate 8 MG in D5W 500ml 550 ML IV SCH ×5 (02:45→23:21)
[2017-03-01 05:14] LABS: MEAN CORPUSCULAR HEMOGLOBIN 27.6 PG (27.0-31.0); MEAN CORPUSCULAR HGB CONC 31.1 G/DL (32.0-36.0); MEAN CORPUSCULAR VOLUME 89 FL (80-99); MEAN PLATELET VOLUME 7.2 FL (6.5-10.1); PLATELET COUNT 168 K/UL (150-450); RED BLOOD COUNT 2.68 M/UL (4.20-5.40); RED CELL DISTRIBUTION WIDTH 19.4 % (11.6-14.8)
[2017-03-01 05:54] LABS: ALANINE AMINOTRANSFERASE 14 U/L (12-78); ALBUMIN/GLOBULIN RATIO 0.6 (1.0-2.7); ANION GAP 12 mmol/L (5-15); ASPARTATE AMINO TRANSFERASE 35 U/L (15-37); CALCIUM 6.6 MG/DL (8.5-10.1); CARBON DIOXIDE 19 MMOL/L (21-32); CHLORIDE 97 MMOL/L (98-107); CHOLESTEROL 93 MG/DL (< 200); CHOLESTEROL/HDL RATIO 7.2 (3.3-4.4); CREATININE 2.9 MG/DL (0.55-1.30); CRP QUANT 17.2 mg/dL (0.00-0.90); GLOMERULAR FILTRATION RATE 16.5 mL/min (>60); PHOSPHORUS 4.2 MG/DL (2.5-4.9); POTASSIUM 4.2 MMOL/L (3.5-5.1); SODIUM 128 MMOL/L (136-145); TOTAL PROTEIN 4.9 G/DL (6.4-8.2); URIC ACID 7.1 MG/DL (2.6-7.2)
[2017-03-01 08:28] LABS: LYMPHOCYTES % (MANUAL) 4 % (20-45); NEUTROPHILS % (MANUAL) 94 % (45-75); TOTAL CELLS COUNTED 100
[2017-03-01 08:29] LABS: ANISOCYTOSIS 1+; BAND NEUTROPHILS % (MANUAL) 0 % (0-8); BASOPHILS % (MANUAL) 0 % (0-2); EOSINOPHILS % (MANUAL) 0 % (0-3); HYPOCHROMASIA 1+; PLATELET ESTIMATE ADEQUATE; PLATELET MORPHOLOGY NORMAL
--- NOTE | 2017-03-01 08:30 | Progress Note ---
DATE: 02/28/2017 SUBJECTIVE: The patient's condition rapidly deteriorated. Yesterday, she ruled out CA and today she developed cardiogenic shock. OBJECTIVE: VITAL SIGNS: Blood pressure of 61/41, pulse is 111, respirations 22, and temperature is 98.2. HEENT: Eyes were normal. ENT, mucous membranes were dry. NECK: Supple with no JVD. LUNGS: Clear with bilateral rhonchi at both bases, but mostly laterally. HEART: Normal sounds with regular beats. There is tachycardia at rest. Sinus tachycardia on monitor. ABDOMEN: Soft and nontender with normal bowel sounds. Gastrostomy site is clean. EXTREMITIES: Warm. No cyanosis, clubbing, or edema. Examination of the extremities revealed that both knees are not warm without fluctuation sign. The synovial effusion the patient had has now completely resolved and most probably it does not represent any sepsis. LABORATORY AND DIAGNOSTIC DATA: Hemoglobin is 9.2, hematocrit 29.6 with MCV of 88, WBC of 43.5, and platelets 77. Her BUN and creatinine is 45 and 3.0. Her BUN and creatinine yesterday was 43 and 2.9. Her sodium is 130, potassium 4.4, chloride 99, and CO2 is 17, CO2 yesterday was 21. Uric acid is 6.1, phosphorus 4.1, and magnesium is 1.6. GGTP was 74. Her CRP is 15.4. Her proBNP is more than 35,000. Albumin is 1.3 and total protein is 4.5. Chest x-ray revealed bilateral interstitial alveolar infiltrate with increase in . CT scan of the yesterday revealed diffuse edema and subcutaneous fat, he has abdominal fat, perineal fat, and fatty fluid and substantial space consolidation as well as atelectasis. There is massive fluid collection involving the right kidney. There is also an area of left involving the . There is also disease and right paratracheal nodes diverticulosis and cholelithiasis. IMPRESSION: The patient secondary to advancing CA, now cardiogenic shock with elevated WBC leukemoid reaction. Repeat laboratory tests will be done in the a.m. There is no evidence of acute vasculitis on her imaging studies or the physical examination. Zamzam Velazquez M.D. DR: IMER JOB#: [id number] CC:
[2017-03-01] MEDS: Heparin 5000 units/ml inj SUBQ SCH ×2 (08:53→21:00)
[2017-03-01] MEDS: Vancomycin oral 125mg/2.5ml NG SCH ×2 (09:04→18:42)
[2017-03-01] MEDS: Pantoprazole Inj IVP SCH (09:04)
[2017-03-01] MEDS ORDERED: Lidocaine 1% Plain 30 ml INJ PRN (10:15)
[2017-03-01] MEDS ORDERED: Heparin 2000 units/Ns 1000ml IV PRN (10:15)
--- NOTE | 2017-03-01 10:18 | Infectious Diseases Prog Note ---
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 -CT chest abd/p: Anasarca, as described, with diffuse edema of the subcutaneous , abdominal, and mediastinal fat, ascites, pericardial fluid, and bilateral pleural effusions. Extensive diffuse bilateral pulmonary parenchymal airspace consolidation. This may represent pulmonary edema or infiltrates. Atelectasis of portions of the left lower lobe. Complete endobronchial occlusion of the left lower lobe bronchus and proximal segmental bronchi, is likely due to secretions. Cardiomegaly. Endotracheal tube, central venous catheter, nasogastric tube in good positions. Air bubbles within the left ventricle and pulmonary artery, may reflect small air emboli from IV access. Incidental finding of evidence of old granulomatous disease within a right. paratracheal node. Massive fluid collection surrounding the left kidney, probably subcapsular . Presence of vascular embolization coils in the left renal hilum raises possibility of this could be the residua of a prior perinephric hematoma. Correlate with clinical history. Other etiologies also possible. Equivocal mild wall thickening of the sigmoid and distal descending colon. Probably artifact of under distention, but colitis not excludable. Diverticulosis. Cholelithiasis Acute respiratory failure s/p intubation- 2ry to Sepsis and CHF, PNA; now ARDS -CXR 02/28: Bilateral interstitial and alveolar infiltrates, new or increased since prior study of 02/25/2017 Hyperleukocytosis, persistent- likely 2ry to undrained abscess FEver- improving Cholelithiasis- ?cholecystitis -CT: The gallbladder is distended, contains a large gallstone. No definite biliary ductal dilatation. B/l knee synovitis- r/o septic arthritis Troponinemia> NSTEMI 1 vs 2- improving Thrombocytopenia, impoved s/p platelets transfussion Hx of Cdiff- unclear when and tx -No BM here, has abd pain- -abd xray: Single prominent gas-filled bowel loop is seen in the midabdomen, probably transverse colon, appearance nonspecific. -Cdiff pending Sacral decubitus, superficial- no signs of infection -wound cx: ESBL E.coli, S.aureus, Enterococcus fecalis (S Vanco, ampicillin) ESRD on HD T//S HTN, chronic dCHF, CKD, HLD HUS, muscle wasting/atrophy, [place] [facility] resident Plan: -Continue IV Vancomycin #5 MRSA bacteremia/presumed endocarditis/abscess and Ertapenem #2/7 for ESBL in wound (lower suspicion for infected wound but given sepsis will favor treatment) -vanco through goal 15-20; at goal presently -12/5 SP IV Amikacin #3 -12/4 SP Daptomycin x1 (to achieve therapeutic levels quicker) -Continue prophylatic PO Vancomycin for Cdiff while on abx -Bcx every 24-48hrs until clearance of bacteremia -IR drainage of L renal Fluid collection (to be done at bedside)- for source control of ongoing sepsis -Urology evaluation -Ok for placement of temporary HD cath for HD -Please await at least 48-72hrs of negative Bcx and source control of possible renal abscess for permanent HD cath -Will need DORIS when more stable given echo findings (however collection drainage and HD takes priority) -f/u cx -Monitor CBC/BMP, temperatures Thank you for this consultation. Will continue to follow along with you. Discussed with RN and Dr Cason and IR. Subjective Allergies: Coded Allergies: PENICILLINS (Verified Allergy, Unknown, 02/25/17) PIPERACILLIN (Verified Allergy, Unknown, 02/25/17) TAZOBACTAM (Verified Allergy, Unknown, 02/25/17) Subjective afebrile in> 48hrs worsening, now with ARDS, FIo2 100% 2nd pressor started and max on levophed awaiting CT guided drainage Still bacteremic Objective Vital Signs Last 24 Hour Vital Signs Date Time Temp Pulse Resp B/P (MAP) Pulse Ox O2 Delivery O2 Flow Rate FiO2 03/01/17 09:06 106/36 03/01/17 09:00 114 22 106/36 100 Mechanical Ventilator 100 03/01/17 09:00 106/36 03/01/17 08:46 118 22 100 03/01/17 08:30 116 23 109/53 96 Mechanical Ventilator 100 03/01/17 08:00 98.8 115 20 102/47 96 Mechanical Ventilator 100 03/01/17 08:00 114 03/01/17 08:00 109/53 03/01/17 08:00 100 03/01/17 07:30 117 22 100/58 96 Mechanical Ventilator 100 03/01/17 07:00 115 19 103/51 96 Mechanical Ventilator 100 03/01/17 06:48 115 21 100 03/01/17 06:30 115 21 107/39 96 Mechanical Ventilator 100 03/01/17 06:00 114 21 106/48 92 Mechanical Ventilator 100 03/01/17 05:30 113 21 105/55 92 Mechanical Ventilator 100 03/01/17 05:18 114 22 100 03/01/17 05:00 121 23 86/47 92 Mechanical Ventilator 100 03/01/17 04:30 118 21 107/53 92 Mechanical Ventilator 100 03/01/17 04:00 100 03/01/17 04:00 102/41 03/01/17 04:00 98.4 118 20 102/41 90 Mechanical Ventilator 100 03/01/17 04:00 118 03/01/17 03:30 115 20 102/40 90 Mechanical Ventilator 100 03/01/17 03:22 112 21 100 03/01/17 03:00 113 20 98/43 90 Mechanical Ventilator 100 03/01/17 03:00 98/43 03/01/17 02:45 105/49 03/01/17 02:30 104 21 105/49 92 Mechanical Ventilator 100 03/01/17 02:30 95 108/68 03/01/17 02:10 131 108/68 03/01/17 02:00 140 22 108/68 92 Mechanical Ventilator 100 03/01/17 02:00 100/68 03/01/17 01:30 108 21 110/39 92 Mechanical Ventilator 100 03/01/17 01:28 106 20 100 03/01/17 01:00 113/38 03/01/17 01:00 109 22 113/38 90 Mechanical Ventilator 80 03/01/17 00:30 109 21 109/34 92 Mechanical Ventilator 80 03/01/17 00:00 98.7 110 21 110/43 95 Mechanical Ventilator 80 03/01/17 00:00 110/43 02/28/17 23:30 110 24 117/30 98 Mechanical Ventilator 80 02/28/17 23:27 110 20 80 02/28/17 23:00 109 24 111/38 100 Mechanical Ventilator 80 02/28/17 23:00 111/38 02/28/17 22:30 108 21 109/49 100 Mechanical Ventilator 80 02/28/17 22:11 71/35 02/28/17 22:00 71/35 02/28/17 22:00 105 26 71/35 100 Mechanical Ventilator 80 02/28/17 21:30 149 36 100/69 99 Mechanical Ventilator 80 02/28/17 21:00 159 30 89/34 100 Mechanical Ventilator 80 02/28/17 21:00 89/34 02/28/17 20:49 137 22 80 02/28/17 20:30 111 22 61/41 100 Mechanical Ventilator 80 02/28/17 20:00 110 22 106/76 100 Mechanical Ventilator 80 02/28/17 20:00 106/76 02/28/17 20:00 80 02/28/17 20:00 110 02/28/17 19:30 98.2 108 25 108/27 100 Mechanical Ventilator 80 02/28/17 19:25 108 22 80 02/28/17 19:24 120 02/28/17 19:00 108 22 93/51 100 Mechanical Ventilator 80 02/28/17 18:45 109 33 88/46 100 Mechanical Ventilator 80 02/28/17 18:30 110 33 78/46 100 Mechanical Ventilator 80 02/28/17 18:15 112 33 76/39 100 Mechanical Ventilator 80 02/28/17 18:00 116 33 90/50 100 Mechanical Ventilator 80 02/28/17 17:45 166 33 104/58 100 Mechanical Ventilator 80 02/28/17 17:15 128 33 127/64 100 Mechanical Ventilator 50 02/28/17 17:00 95/53 02/28/17 16:46 97 30 50 02/28/17 16:45 112 33 111/36 100 Mechanical Ventilator 50 02/28/17 16:30 101 32 112/78 100 Mechanical Ventilator 50 02/28/17 16:19 110 94/58 02/28/17 16:15 110 27 95/53 100 Mechanical Ventilator 50 02/28/17 16:00 110 02/28/17 16:00 98.3 110 20 94/58 100 Mechanical Ventilator 50 02/28/17 16:00 50 02/28/17 15:30 109 27 91/58 100 Mechanical Ventilator 50 02/28/17 15:00 108 26 82/55 100 Mechanical Ventilator 50 02/28/17 14:40 107 27 50 02/28/17 14:30 104 26 85/50 100 Mechanical Ventilator 50 02/28/17 14:00 107 26 85/42 100 Mechanical Ventilator 50 02/28/17 13:30 110 26 89/49 100 Mechanical Ventilator 50 02/28/17 12:58 114 29 50 02/28/17 12:30 112 26 103/57 100 Mechanical Ventilator 50 02/28/17 12:00 60 02/28/17 12:00 98.6 114 26 103/57 100 Mechanical Ventilator 50 02/28/17 12:00 113 02/28/17 11:30 112 26 113/57 100 Mechanical Ventilator 50 02/28/17 11:15 115 31 60 02/28/17 11:03 82/45 02/28/17 11:00 116 26 81/40 100 Mechanical Ventilator 50 02/28/17 10:30 113 26 100/57 100 Mechanical Ventilator 50 02/28/17 10:00 113 26 100/65 100 Mechanical Ventilator 50 Height (Feet): 5 Height (Inches): 7.00 Weight (Pounds): 175 Objective Status: sedated, other Condition: critical HEENT: atraumatic, normocephalic, other - OP with ET in palce, intact Neck: other - RIJ TL intact Lungs: clear, other -s/p removal R HD cath Heart: HR/BP unstable Abdomen: soft, non-tender, active bowel sounds Extremities: no C/C/E Microbiology Date/Time Source Procedure Growth Status 02/27/17 03:55 Blood Blood Culture - Preliminary Staphylococcus Aureus Resulted 02/27/17 03:50 Blood Blood Culture - Preliminary Staphylococcus Aureus Resulted 02/26/17 11:10 Blood Blood Culture - Final Staphylococcus Aureus - Mrsa Complete 02/26/17 10:50 Blood Blood Culture - Final Staphylococcus Aureus - Mrsa Complete 02/26/17 12:00 Other(Specify in comment) Catheter Tip Culture - Final Staphylococcus Aureus Complete 02/26/17 12:00 Wound Gram Stain - Final Resulted 02/26/17 12:00 Wound Culture - Preliminary Staphylococcus Aureus - Mrsa Resulted Laboratory Tests Test 02/28/17 10:05 03/01/17 04:20 Prothrombin Time 13.4 SEC (9.30-11.50) H Prothromb Time International Ratio 1.3 (0.9-1.1) H Activated Partial Thromboplast Time 46 SEC (23-33) H White Blood Count 38.0 K/UL (4.8-10.8) *H Red Blood Count 2.68 M/UL (4.20-5.40) L Hemoglobin 7.4 G/DL (12.0-16.0) L Hematocrit 23.8 % (37.0-47.0) L Mean Corpuscular Volume 89 FL (80-99) Mean Corpuscular Hemoglobin 27.6 PG (27.0-31.0) Mean Corpuscular Hemoglobin Concent 31.1 G/DL (32.0-36.0) L Red Cell Distribution Width 19.4 % (11.6-14.8) H Platelet Count 168 K/UL (150-450) # Mean Platelet Volume 7.2 FL (6.5-10.1) Neutrophils (%) (Auto) % (45.0-75.0) Lymphocytes (%) (Auto) % (20.0-45.0) Monocytes (%) (Auto) % (1.0-10.0) Eosinophils (%) (Auto) % (0.0-3.0) Basophils (%) (Auto) % (0.0-2.0) Differential Total Cells Counted 100 Neutrophils % (Manual) 94 % (45-75) H Lymphocytes % (Manual) 4 % (20-45) L Monocytes % (Manual) 2 % (1-10) Eosinophils % (Manual) 0 % (0-3) Basophils % (Manual) 0 % (0-2) Band Neutrophils 0 % (0-8) Platelet Estimate Adequate Platelet Morphology Normal Hypochromasia 1+ Anisocytosis 1+ Sodium Level 128 MMOL/L (136-145) L Potassium Level 4.2 MMOL/L (3.5-5.1) Chloride Level 97 MMOL/L (98-107) L Carbon Dioxide Level 19 MMOL/L (21-32) L Anion Gap 12 mmol/L (5-15) Blood Urea Nitrogen 47 mg/dL (7-18) H Creatinine 2.9 MG/DL (0.55-1.30) H Estimat Glomerular Filtration Rate 16.5 mL/min (>60) Glucose Level 179 MG/DL (74-106) H Uric Acid 7.1 MG/DL (2.6-7.2) Calcium Level 6.6 MG/DL (8.5-10.1) L Phosphorus Level 4.2 MG/DL (2.5-4.9) Magnesium Level 1.8 MG/DL (1.8-2.4) Total Bilirubin 1.0 MG/DL (0.2-1.0) Aspartate Amino Transf (AST/SGOT) 35 U/L (15-37) Alanine Aminotransferase (ALT/SGPT) 14 U/L (12-78) Alkaline Phosphatase 119 U/L (46-116) H Troponin I 2.214 ng/mL (0.000-0.056) C-Reactive Protein, Quantitative 17.2 mg/dL (0.00-0.90) H Pro-B-Type Natriuretic Peptide > 61827 pg/mL (0-125) H Total Protein 4.9 G/DL (6.4-8.2) L Albumin 1.8 G/DL (3.4-5.0) L Globulin 3.1 g/dL Albumin/Globulin Ratio 0.6 (1.0-2.7) L Triglycerides Level 158 MG/DL (30-150) H Cholesterol Level 93 MG/DL (< 200) LDL Cholesterol 42 mg/dL (<100) HDL Cholesterol 13 MG/DL (40-60) L Cholesterol/HDL Ratio 7.2 (3.3-4.4) H Digoxin Level 1.9 NG/ML (0.9-2.0) Current Medications Medications (Trade) Dose Ordered Sig/Nina Route PRN Reason Start Time Stop Time Status Last Admin Dose Admin Acetaminophen (Tylenol) 650 mg Q4H PRN ORAL fever 02/25/17 15:15 03/27/17 15:14 02/26/17 23:37 Albuterol/ Ipratropium (Albuterol/ Ipratropium) 3 ml Q4H PRN HHN Shortness of Breath 02/25/17 15:15 03/02/17 15:14 Chlorhexidine Gluconate (Poonam-Hex 2%) 1 applic DAILY@2000 TOPIC 02/26/17 22:00 03/28/17 21:59 02/28/17 20:41 Diltiazem HCl (Cardizem) 10 mg Q1H PRN IVP HR>120 02/28/17 22:15 03/30/17 22:14 03/01/17 02:10 Ertapenem 0.5 gm/ Sodium Chloride 55 ml @ 110 mls/hr Q24H IVPB 02/28/17 11:15 03/05/17 11:14 02/28/17 12:08 Heparin Sodium (Porcine) (Heparin 5000 units/ml) 5,000 units EVERY 12 HOURS SUBQ 02/25/17 21:00 03/27/17 20:59 Levothyroxine Sodium (Synthroid) 50 mcg ACBREAKFAST ORAL 02/26/17 06:30 03/28/17 06:29 03/01/17 06:47 Lorazepam (Ativan 2mg/ml 1ml) 2 mg Q2H PRN IV For Anxiety 02/25/17 15:15 03/04/17 15:14 02/28/17 17:13 Morphine Sulfate (Morphine Sulfate) 4 mg Q4H PRN IVP Severe Pain (Pain Scale 7-10) 02/25/17 15:15 03/04/17 15:14 02/27/17 22:46 Norepinephrine Bitartrate 8 mg/ Dextrose 558 ml @ 0 mls/hr Q24H IV 02/26/17 11:15 03/28/17 11:14 03/01/17 09:06 Ondansetron HCl (Zofran) 4 mg Q6H PRN IVP Nausea & Vomiting 02/25/17 15:15 03/27/17 15:14 Pantoprazole (Protonix) 40 mg DAILY IVP 02/26/17 09:00 03/28/17 08:59 03/01/17 09:04 Phenylephrine HCl 50 mg/Dextrose 250 ml @ 0 mls/hr Q24H IV 02/28/17 15:30 03/30/17 15:29 03/01/17 02:30 Polyethylene Glycol (Miralax) 17 gm DAILYPRN PRN ORAL Constipation 02/25/17 15:15 03/27/17 15:14 Sodium Chloride 1,000 ml @ 100 mls/hr Q10H IVLG 02/25/17 16:45 03/27/17 16:44 03/01/17 02:46 Vancomycin HCl (Vanco rx to dose) 1 ea DAILY PRN MISC RX TO DOSE 02/26/17 07:15 03/28/17 07:14 Vancomycin HCl (Vancomycin) 125 mg BID NG 02/26/17 16:00 03/05/17 15:59 03/01/17 09:04 Anamaria Davalos M.D. Mar 01, 2017 10:18
--- NOTE | 2017-03-01 10:19 | Diagnostic Imaging Report ---
Indication: Shortness of breath Technique: One view of the chest Comparison: 02/28/2017 Findings: Extensive diffuse bilateral infiltrates versus edema are again demonstrated. Stable satisfactory positions of right jugular central venous catheter, endotracheal tube, nasogastric tube. Impression: Unchanged, over one day, findings as above.
--- NOTE | 2017-03-01 10:21 | Diagnostic Imaging Report ---
Indication: Abdominal pain Technique: Supine view of the abdomen Comparison: 02/26/2017 Findings: Stable satisfactory position of nasogastric tube, tip projected at the level gastric body. Contrast from recent CT scan is now seen within the ascending and transverse colon. Bowel gas pattern is unremarkable. Prominent single focus of colonic gas is noted, probably the cecum. Vascular embolic coils are seen in the left renal hilar region Impression: No definite acute process. Findings as noted
[2017-03-01] MEDS: Ertapenem 0.5 GM in NS 55 ML IVPB SCH (11:02)
--- NOTE | 2017-03-01 11:17 | Pulmonolgy Critical Care Note ---
Critical Care - Asmt/Plan Problems: (1) ESRF (end stage renal failure) (2) Respiratory failure, acute (3) Septic shock (4) Altered level of consciousness (5) Hypotension (6) PVD (peripheral vascular disease) (7) Cardiac arrest Respiratory: monitor respiratory rate, adjust FIO2 Cardiac: continue pressors, continue to monitor HR/BP Renal: F/U I&O, keep IV fluid Infectious Disease: check cultures Gastrointestinal: hold feedings Endocrine: monitor blood sugar, check HgA1C Hematologic: transfuse if hgb<8.5 Neurologic: PRN Ativan, keep patient comfortable Prophylaxis: Protonix, Heparin Disposition: keep in ICU Notes Reviewed: cardio, renal Discussed with: nurses, consultants, leather case finisher, other - I called pts sister , she understands the gravity of pts condition and agrees with DNR. Critical Care - Objective Last 24 Hour Vital Signs Date Time Temp Pulse Resp B/P (MAP) Pulse Ox O2 Delivery O2 Flow Rate FiO2 03/01/17 11:04 117 124/55 03/01/17 10:30 119 23 103/73 100 Mechanical Ventilator 100 03/01/17 10:30 117 22 100 03/01/17 10:00 111/57 03/01/17 10:00 118 21 111/57 100 Mechanical Ventilator 100 03/01/17 09:30 116 22 115/49 100 Mechanical Ventilator 100 03/01/17 09:06 106/36 03/01/17 09:00 114 22 106/36 100 Mechanical Ventilator 100 03/01/17 09:00 106/36 03/01/17 08:46 118 22 100 03/01/17 08:30 116 23 109/53 96 Mechanical Ventilator 100 03/01/17 08:00 98.8 115 20 102/47 96 Mechanical Ventilator 100 03/01/17 08:00 114 03/01/17 08:00 109/53 03/01/17 08:00 100 03/01/17 07:30 117 22 100/58 96 Mechanical Ventilator 100 03/01/17 07:00 115 19 103/51 96 Mechanical Ventilator 100 03/01/17 06:48 115 21 100 03/01/17 06:30 115 21 107/39 96 Mechanical Ventilator 100 03/01/17 06:00 114 21 106/48 92 Mechanical Ventilator 100 03/01/17 05:30 113 21 105/55 92 Mechanical Ventilator 100 03/01/17 05:18 114 22 100 03/01/17 05:00 121 23 86/47 92 Mechanical Ventilator 100 03/01/17 04:30 118 21 107/53 92 Mechanical Ventilator 100 03/01/17 04:00 100 03/01/17 04:00 102/41 03/01/17 04:00 98.4 118 20 102/41 90 Mechanical Ventilator 100 03/01/17 04:00 118 03/01/17 03:30 115 20 102/40 90 Mechanical Ventilator 100 03/01/17 03:22 112 21 100 03/01/17 03:00 113 20 98/43 90 Mechanical Ventilator 100 03/01/17 03:00 98/43 03/01/17 02:45 105/49 03/01/17 02:30 104 21 105/49 92 Mechanical Ventilator 100 03/01/17 02:30 95 108/68 03/01/17 02:10 131 108/68 03/01/17 02:00 140 22 108/68 92 Mechanical Ventilator 100 03/01/17 02:00 100/68 03/01/17 01:30 108 21 110/39 92 Mechanical Ventilator 100 03/01/17 01:28 106 20 100 03/01/17 01:00 113/38 03/01/17 01:00 109 22 113/38 90 Mechanical Ventilator 80 03/01/17 00:30 109 21 109/34 92 Mechanical Ventilator 80 03/01/17 00:00 98.7 110 21 110/43 95 Mechanical Ventilator 80 03/01/17 00:00 110/43 02/28/17 23:30 110 24 117/30 98 Mechanical Ventilator 80 02/28/17 23:27 110 20 80 02/28/17 23:00 109 24 111/38 100 Mechanical Ventilator 80 02/28/17 23:00 111/38 02/28/17 22:30 108 21 109/49 100 Mechanical Ventilator 80 02/28/17 22:11 71/35 02/28/17 22:00 71/35 02/28/17 22:00 105 26 71/35 100 Mechanical Ventilator 80 02/28/17 21:30 149 36 100/69 99 Mechanical Ventilator 80 02/28/17 21:00 159 30 89/34 100 Mechanical Ventilator 80 02/28/17 21:00 89/34 12/6/17 20:49 137 22 80 02/28/17 20:30 111 22 61/41 100 Mechanical Ventilator 80 02/28/17 20:00 110 22 106/76 100 Mechanical Ventilator 80 02/28/17 20:00 106/76 02/28/17 20:00 80 02/28/17 20:00 110 02/28/17 19:30 98.2 108 25 108/27 100 Mechanical Ventilator 80 02/28/17 19:25 108 22 80 02/28/17 19:24 120 02/28/17 19:00 108 22 93/51 100 Mechanical Ventilator 80 02/28/17 18:45 109 33 88/46 100 Mechanical Ventilator 80 02/28/17 18:30 110 33 78/46 100 Mechanical Ventilator 80 02/28/17 18:15 112 33 76/39 100 Mechanical Ventilator 80 02/28/17 18:00 116 33 90/50 100 Mechanical Ventilator 80 02/28/17 17:45 166 33 104/58 100 Mechanical Ventilator 80 02/28/17 17:15 128 33 127/64 100 Mechanical Ventilator 50 02/28/17 17:00 95/53 02/28/17 16:46 97 30 50 02/28/17 16:45 112 33 111/36 100 Mechanical Ventilator 50 02/28/17 16:30 101 32 112/78 100 Mechanical Ventilator 50 02/28/17 16:19 110 94/58 02/28/17 16:15 110 27 95/53 100 Mechanical Ventilator 50 02/28/17 16:00 110 02/28/17 16:00 98.3 110 20 94/58 100 Mechanical Ventilator 50 02/28/17 16:00 50 02/28/17 15:30 109 27 91/58 100 Mechanical Ventilator 50 02/28/17 15:00 108 26 82/55 100 Mechanical Ventilator 50 02/28/17 14:40 107 27 50 02/28/17 14:30 104 26 85/50 100 Mechanical Ventilator 50 02/28/17 14:00 107 26 85/42 100 Mechanical Ventilator 50 02/28/17 13:30 110 26 89/49 100 Mechanical Ventilator 50 02/28/17 12:58 114 29 50 02/28/17 12:30 112 26 103/57 100 Mechanical Ventilator 50 02/28/17 12:00 60 02/28/17 12:00 98.6 114 26 103/57 100 Mechanical Ventilator 50 02/28/17 12:00 113 02/28/17 11:30 112 26 113/57 100 Mechanical Ventilator 50 02/28/17 11:15 115 31 60 Status: obtunded Condition: critical HEENT: atraumatic Neck: full ROM Lungs: clear, chest wall tender Abdomen: active bowel sounds Extremities: other - cold left food and lower leg Micro: Microbiology Date/Time Source Procedure Growth Status 02/27/17 03:55 Blood Blood Culture - Preliminary Staphylococcus Aureus Resulted 02/27/17 03:50 Blood Blood Culture - Preliminary Staphylococcus Aureus Resulted 02/26/17 11:10 Blood Blood Culture - Final Staphylococcus Aureus - Mrsa Complete 02/26/17 12:00 Other(Specify in comment) Catheter Tip Culture - Final Staphylococcus Aureus Complete 02/26/17 12:00 Wound Gram Stain - Final Resulted 02/26/17 12:00 Wound Culture - Preliminary Staphylococcus Aureus - Mrsa Resulted Critical Care - Subjective ROS Limited/Unobtainable: Yes ICU Day: 5 Intubation Day: 5 Interval Events: 5 FI02: 100 Vent Support Breath Rate: 16 Vent Support Mode: AC Vent Tidal Volume: 600 Sputum Amount: Scant PIP: 40 Secretions: small Drips: on levophed and neosynephrine Tube Feeding Amount: 20 I&O: Intake and Output 03/01/17 03/02/17 19:00 07:00 Intake Total 682.95 ml Output Total 0 ml Balance 682.95 ml Intake IV Total 682.95 ml Output Urine Total 0 ml ET-Tube: 7.5 ET Position: 25 Labs: Laboratory Tests Test 03/01/17 04:20 White Blood Count 38.0 K/UL (4.8-10.8) *H Red Blood Count 2.68 M/UL (4.20-5.40) L Hemoglobin 7.4 G/DL (12.0-16.0) L Hematocrit 23.8 % (37.0-47.0) L Mean Corpuscular Volume 89 FL (80-99) Mean Corpuscular Hemoglobin 27.6 PG (27.0-31.0) Mean Corpuscular Hemoglobin Concent 31.1 G/DL (32.0-36.0) L Red Cell Distribution Width 19.4 % (11.6-14.8) H Platelet Count 168 K/UL (150-450) # Mean Platelet Volume 7.2 FL (6.5-10.1) Neutrophils (%) (Auto) % (45.0-75.0) Lymphocytes (%) (Auto) % (20.0-45.0) Monocytes (%) (Auto) % (1.0-10.0) Eosinophils (%) (Auto) % (0.0-3.0) Basophils (%) (Auto) % (0.0-2.0) Differential Total Cells Counted 100 Neutrophils % (Manual) 94 % (45-75) H Lymphocytes % (Manual) 4 % (20-45) L Monocytes % (Manual) 2 % (1-10) Eosinophils % (Manual) 0 % (0-3) Basophils % (Manual) 0 % (0-2) Band Neutrophils 0 % (0-8) Platelet Estimate Adequate Platelet Morphology Normal Hypochromasia 1+ Anisocytosis 1+ Sodium Level 128 MMOL/L (136-145) L Potassium Level 4.2 MMOL/L (3.5-5.1) Chloride Level 97 MMOL/L (98-107) L Carbon Dioxide Level 19 MMOL/L (21-32) L Anion Gap 12 mmol/L (5-15) Blood Urea Nitrogen 47 mg/dL (7-18) H Creatinine 2.9 MG/DL (0.55-1.30) H Estimat Glomerular Filtration Rate 16.5 mL/min (>60) Glucose Level 179 MG/DL (74-106) H Uric Acid 7.1 MG/DL (2.6-7.2) Calcium Level 6.6 MG/DL (8.5-10.1) L Phosphorus Level 4.2 MG/DL (2.5-4.9) Magnesium Level 1.8 MG/DL (1.8-2.4) Total Bilirubin 1.0 MG/DL (0.2-1.0) Aspartate Amino Transf (AST/SGOT) 35 U/L (15-37) Alanine Aminotransferase (ALT/SGPT) 14 U/L (12-78) Alkaline Phosphatase 119 U/L (46-116) H Troponin I 2.214 ng/mL (0.000-0.056) C-Reactive Protein, Quantitative 17.2 mg/dL (0.00-0.90) H Pro-B-Type Natriuretic Peptide > 64734 pg/mL (0-125) H Total Protein 4.9 G/DL (6.4-8.2) L Albumin 1.8 G/DL (3.4-5.0) L Globulin 3.1 g/dL Albumin/Globulin Ratio 0.6 (1.0-2.7) L Triglycerides Level 158 MG/DL (30-150) H Cholesterol Level 93 MG/DL (< 200) LDL Cholesterol 42 mg/dL (<100) HDL Cholesterol 13 MG/DL (40-60) L Cholesterol/HDL Ratio 7.2 (3.3-4.4) H Digoxin Level 1.9 NG/ML (0.9-2.0) BHAVIN PARKER Mar 01, 2017 11:17
--- NOTE | 2017-03-01 11:25 | Cardiac Electrophysiology PN ---
Assessment/Plan Assessment/Plan 1. Elevated troponin. Troponin increased from 1 to 3.7 and then to 6.21 .Down to 4.4. This is likely due to demand ischemia in this patient with septic shock, bacteremia and endocarditis. The patient is not a candidate for anticoagulation with heparin in view of severe anemia requiring blood transfusion as well as severe thrombocytopenia with platelet count of 50. Her EKG also showed sinus rhythm with nonspecific ST-T wave abnormality with no ST elevation. Obviously cannot give beta-mathieu in view of hypotension.EF 55% by echo 2. Bacteremia and echogenic material on the posterior mitral leaflet that cannot exclude vegetation. Cancel DORIS as the patient is not stable. 3. Severe pulmonary regurgitation with PA pressure of 53. 4. Septic shock, on Levophed and Giorgi and IV antibiotic per Dr. Cason. 5. Respiratory failure, currently on the ventilator. 6. End-stage renal disease. The PermCath was removed as it was probably the source of infection. Again, the patient remains on IV antibiotics. New HD catheter pending. 7. Severe anemia, status post blood transfusion. DW Dr Cason Subjective Subjective Coded yesterday at around 5 pm. HR was 220. In ICU on vent and Levophed 30 mcg . RN at bedside.Dialysis line placement and HD cancelled as now DNR and DNI. Objective Last 24 Hour Vital Signs Date Time Temp Pulse Resp B/P (MAP) Pulse Ox O2 Delivery O2 Flow Rate FiO2 03/01/17 11:04 117 124/55 03/01/17 11:00 117 20 124/79 100 Mechanical Ventilator 100 03/01/17 11:00 120/79 03/01/17 10:30 119 23 103/73 100 Mechanical Ventilator 100 03/01/17 10:30 117 22 100 03/01/17 10:00 111/57 03/01/17 10:00 118 21 111/57 100 Mechanical Ventilator 100 03/01/17 09:30 116 22 115/49 100 Mechanical Ventilator 100 03/01/17 09:06 106/36 03/01/17 09:00 114 22 106/36 100 Mechanical Ventilator 100 03/01/17 09:00 106/36 03/01/17 08:46 118 22 100 03/01/17 08:30 116 23 109/53 96 Mechanical Ventilator 100 03/01/17 08:00 98.8 115 20 102/47 96 Mechanical Ventilator 100 03/01/17 08:00 114 03/01/17 08:00 109/53 03/01/17 08:00 100 03/01/17 07:30 117 22 100/58 96 Mechanical Ventilator 100 03/01/17 07:00 115 19 103/51 96 Mechanical Ventilator 100 03/01/17 06:48 115 21 100 03/01/17 06:30 115 21 107/39 96 Mechanical Ventilator 100 03/01/17 06:00 114 21 106/48 92 Mechanical Ventilator 100 03/01/17 05:30 113 21 105/55 92 Mechanical Ventilator 100 03/01/17 05:18 114 22 100 03/01/17 05:00 121 23 86/47 92 Mechanical Ventilator 100 03/01/17 04:30 118 21 107/53 92 Mechanical Ventilator 100 03/01/17 04:00 100 03/01/17 04:00 102/41 03/01/17 04:00 98.4 118 20 102/41 90 Mechanical Ventilator 100 03/01/17 04:00 118 03/01/17 03:30 115 20 102/40 90 Mechanical Ventilator 100 03/01/17 03:22 112 21 100 03/01/17 03:00 113 20 98/43 90 Mechanical Ventilator 100 03/01/17 03:00 98/43 03/01/17 02:45 105/49 03/01/17 02:30 104 21 105/49 92 Mechanical Ventilator 100 03/01/17 02:30 95 108/68 03/01/17 02:10 131 108/68 03/01/17 02:00 140 22 108/68 92 Mechanical Ventilator 100 03/01/17 02:00 100/68 03/01/17 01:30 108 21 110/39 92 Mechanical Ventilator 100 03/01/17 01:28 106 20 100 03/01/17 01:00 113/38 03/01/17 01:00 109 22 113/38 90 Mechanical Ventilator 80 03/01/17 00:30 109 21 109/34 92 Mechanical Ventilator 80 03/01/17 00:00 98.7 110 21 110/43 95 Mechanical Ventilator 80 03/01/17 00:00 110/43 02/28/17 23:30 110 24 117/30 98 Mechanical Ventilator 80 02/28/17 23:27 110 20 80 02/28/17 23:00 109 24 111/38 100 Mechanical Ventilator 80 02/28/17 23:00 111/38 02/28/17 22:30 108 21 109/49 100 Mechanical Ventilator 80 02/28/17 22:11 71/35 02/28/17 22:00 71/35 02/28/17 22:00 105 26 71/35 100 Mechanical Ventilator 80 02/28/17 21:30 149 36 100/69 99 Mechanical Ventilator 80 02/28/17 21:00 159 30 89/34 100 Mechanical Ventilator 80 02/28/17 21:00 89/34 02/28/17 20:49 137 22 80 02/28/17 20:30 111 22 61/41 100 Mechanical Ventilator 80 02/28/17 20:00 110 22 106/76 100 Mechanical Ventilator 80 02/28/17 20:00 106/76 02/28/17 20:00 80 02/28/17 20:00 110 02/28/17 19:30 98.2 108 25 108/27 100 Mechanical Ventilator 80 02/28/17 19:25 108 22 80 02/28/17 19:24 120 02/28/17 19:00 108 22 93/51 100 Mechanical Ventilator 80 02/28/17 18:45 109 33 88/46 100 Mechanical Ventilator 80 02/28/17 18:30 110 33 78/46 100 Mechanical Ventilator 80 02/28/17 18:15 112 33 76/39 100 Mechanical Ventilator 80 02/28/17 18:00 116 33 90/50 100 Mechanical Ventilator 80 02/28/17 17:45 166 33 104/58 100 Mechanical Ventilator 80 02/28/17 17:15 128 33 127/64 100 Mechanical Ventilator 50 02/28/17 17:00 95/53 02/28/17 16:46 97 30 50 02/28/17 16:45 112 33 111/36 100 Mechanical Ventilator 50 02/28/17 16:30 101 32 112/78 100 Mechanical Ventilator 50 02/28/17 16:19 110 94/58 02/28/17 16:15 110 27 95/53 100 Mechanical Ventilator 50 02/28/17 16:00 110 02/28/17 16:00 98.3 110 20 94/58 100 Mechanical Ventilator 50 02/28/17 16:00 50 02/28/17 15:30 109 27 91/58 100 Mechanical Ventilator 50 02/28/17 15:00 108 26 82/55 100 Mechanical Ventilator 50 02/28/17 14:40 107 27 50 02/28/17 14:30 104 26 85/50 100 Mechanical Ventilator 50 02/28/17 14:00 107 26 85/42 100 Mechanical Ventilator 50 02/28/17 13:30 110 26 89/49 100 Mechanical Ventilator 50 02/28/17 12:58 114 29 50 02/28/17 12:30 112 26 103/57 100 Mechanical Ventilator 50 02/28/17 12:00 60 02/28/17 12:00 98.6 114 26 103/57 100 Mechanical Ventilator 50 02/28/17 12:00 113 02/28/17 11:30 112 26 113/57 100 Mechanical Ventilator 50 Intake and Output 03/01/17 03/02/17 19:00 07:00 Intake Total 938.50 ml Output Total 0 ml Balance 938.50 ml Intake IV Total 938.50 ml Output Urine Total 0 ml Laboratory Tests Test 03/01/17 04:20 White Blood Count 38.0 K/UL (4.8-10.8) *H Red Blood Count 2.68 M/UL (4.20-5.40) L Hemoglobin 7.4 G/DL (12.0-16.0) L Hematocrit 23.8 % (37.0-47.0) L Mean Corpuscular Volume 89 FL (80-99) Mean Corpuscular Hemoglobin 27.6 PG (27.0-31.0) Mean Corpuscular Hemoglobin Concent 31.1 G/DL (32.0-36.0) L Red Cell Distribution Width 19.4 % (11.6-14.8) H Platelet Count 168 K/UL (150-450) # Mean Platelet Volume 7.2 FL (6.5-10.1) Neutrophils (%) (Auto) % (45.0-75.0) Lymphocytes (%) (Auto) % (20.0-45.0) Monocytes (%) (Auto) % (1.0-10.0) Eosinophils (%) (Auto) % (0.0-3.0) Basophils (%) (Auto) % (0.0-2.0) Differential Total Cells Counted 100 Neutrophils % (Manual) 94 % (45-75) H Lymphocytes % (Manual) 4 % (20-45) L Monocytes % (Manual) 2 % (1-10) Eosinophils % (Manual) 0 % (0-3) Basophils % (Manual) 0 % (0-2) Band Neutrophils 0 % (0-8) Platelet Estimate Adequate Platelet Morphology Normal Hypochromasia 1+ Anisocytosis 1+ Sodium Level 128 MMOL/L (136-145) L Potassium Level 4.2 MMOL/L (3.5-5.1) Chloride Level 97 MMOL/L (98-107) L Carbon Dioxide Level 19 MMOL/L (21-32) L Anion Gap 12 mmol/L (5-15) Blood Urea Nitrogen 47 mg/dL (7-18) H Creatinine 2.9 MG/DL (0.55-1.30) H Estimat Glomerular Filtration Rate 16.5 mL/min (>60) Glucose Level 179 MG/DL (74-106) H Uric Acid 7.1 MG/DL (2.6-7.2) Calcium Level 6.6 MG/DL (8.5-10.1) L Phosphorus Level 4.2 MG/DL (2.5-4.9) Magnesium Level 1.8 MG/DL (1.8-2.4) Total Bilirubin 1.0 MG/DL (0.2-1.0) Aspartate Amino Transf (AST/SGOT) 35 U/L (15-37) Alanine Aminotransferase (ALT/SGPT) 14 U/L (12-78) Alkaline Phosphatase 119 U/L (46-116) H Troponin I 2.214 ng/mL (0.000-0.056) C-Reactive Protein, Quantitative 17.2 mg/dL (0.00-0.90) H Pro-B-Type Natriuretic Peptide > 62198 pg/mL (0-125) H Total Protein 4.9 G/DL (6.4-8.2) L Albumin 1.8 G/DL (3.4-5.0) L Globulin 3.1 g/dL Albumin/Globulin Ratio 0.6 (1.0-2.7) L Triglycerides Level 158 MG/DL (30-150) H Cholesterol Level 93 MG/DL (< 200) LDL Cholesterol 42 mg/dL (<100) HDL Cholesterol 13 MG/DL (40-60) L Cholesterol/HDL Ratio 7.2 (3.3-4.4) H Digoxin Level 1.9 NG/ML (0.9-2.0) Microbiology Date/Time Source Procedure Growth Status 02/27/17 03:55 Blood Blood Culture - Preliminary Staphylococcus Aureus Resulted 02/27/17 03:50 Blood Blood Culture - Preliminary Staphylococcus Aureus Resulted 02/26/17 12:00 Other(Specify in comment) Catheter Tip Culture - Final Staphylococcus Aureus Complete 02/26/17 12:00 Wound Gram Stain - Final Resulted 02/26/17 12:00 Wound Culture - Preliminary Staphylococcus Aureus - Mrsa Resulted Objective HEAD AND NECK: No JVD, orally intubated with OG tube LUNGS: Decreased breath sounds. CARDIOVASCULAR: Shows regular S1 and S2 with no gallop. ABDOMEN: Soft. EXTREMITIES: 2 plus pitting edema. LOIS ELLISON Mar 01, 2017 11:25
--- NOTE | 2017-03-01 12:15 | Nephrology Progress Note ---
Assessment/Plan Problem List: (1) Septic shock (2) Respiratory failure, acute (3) ESRF (end stage renal failure) (4) Hypotension (5) Anemia Assessment doing poorly DNR on max pressors severe sepsis with shock ? line related Valvular Vegetation acute hypoxemic respiratory failure requiring intubation acute toxic metabolic encephalopathy likely due to sepsis elevated troponin acute anemia requiring blood transfusion Pulmonary edema ESRD, on HD , has permacath left chest Hx of CHF Sever HypoAlbuminemia Plan Hemodynamic support- Antibiotics HD can not be offered since on max pressors DNR and DNI per orders Subjective ROS Limited/Unobtainable: Yes Objective Objective Last 24 Hour Vital Signs Date Time Temp Pulse Resp B/P (MAP) Pulse Ox O2 Delivery O2 Flow Rate FiO2 03/01/17 12:00 100 03/01/17 12:00 98.4 118 20 119/72 96 Mechanical Ventilator 100 03/01/17 11:30 120 21 115/50 100 Mechanical Ventilator 100 03/01/17 11:04 117 124/55 03/01/17 11:00 117 20 124/79 100 Mechanical Ventilator 100 03/01/17 11:00 120/79 03/01/17 10:30 119 23 103/73 100 Mechanical Ventilator 100 03/01/17 10:30 117 22 100 03/01/17 10:00 111/57 03/01/17 10:00 118 21 111/57 100 Mechanical Ventilator 100 03/01/17 09:30 116 22 115/49 100 Mechanical Ventilator 100 03/01/17 09:06 106/36 03/01/17 09:00 114 22 106/36 100 Mechanical Ventilator 100 03/01/17 09:00 106/36 03/01/17 08:46 118 22 100 03/01/17 08:30 116 23 109/53 96 Mechanical Ventilator 100 03/01/17 08:00 98.8 115 20 102/47 96 Mechanical Ventilator 100 03/01/17 08:00 114 03/01/17 08:00 109/53 03/01/17 08:00 100 03/01/17 07:30 117 22 100/58 96 Mechanical Ventilator 100 03/01/17 07:00 115 19 103/51 96 Mechanical Ventilator 100 03/01/17 06:48 115 21 100 03/01/17 06:30 115 21 107/39 96 Mechanical Ventilator 100 03/01/17 06:00 114 21 106/48 92 Mechanical Ventilator 100 03/01/17 05:30 113 21 105/55 92 Mechanical Ventilator 100 03/01/17 05:18 114 22 100 03/01/17 05:00 121 23 86/47 92 Mechanical Ventilator 100 03/01/17 04:30 118 21 107/53 92 Mechanical Ventilator 100 03/01/17 04:00 100 03/01/17 04:00 102/41 03/01/17 04:00 98.4 118 20 102/41 90 Mechanical Ventilator 100 03/01/17 04:00 118 03/01/17 03:30 115 20 102/40 90 Mechanical Ventilator 100 03/01/17 03:22 112 21 100 03/01/17 03:00 113 20 98/43 90 Mechanical Ventilator 100 03/01/17 03:00 98/43 03/01/17 02:45 105/49 03/01/17 02:30 104 21 105/49 92 Mechanical Ventilator 100 03/01/17 02:30 95 108/68 03/01/17 02:10 131 108/68 03/01/17 02:00 140 22 108/68 92 Mechanical Ventilator 100 03/01/17 02:00 100/68 03/01/17 01:30 108 21 110/39 92 Mechanical Ventilator 100 03/01/17 01:28 106 20 100 03/01/17 01:00 113/38 03/01/17 01:00 109 22 113/38 90 Mechanical Ventilator 80 03/01/17 00:30 109 21 109/34 92 Mechanical Ventilator 80 03/01/17 00:00 98.7 110 21 110/43 95 Mechanical Ventilator 80 03/01/17 00:00 110/43 02/28/17 23:30 110 24 117/30 98 Mechanical Ventilator 80 02/28/17 23:27 110 20 80 02/28/17 23:00 109 24 111/38 100 Mechanical Ventilator 80 02/28/17 23:00 111/38 02/28/17 22:30 108 21 109/49 100 Mechanical Ventilator 80 02/28/17 22:11 71/35 02/28/17 22:00 71/35 02/28/17 22:00 105 26 71/35 100 Mechanical Ventilator 80 02/28/17 21:30 149 36 100/69 99 Mechanical Ventilator 80 02/28/17 21:00 159 30 89/34 100 Mechanical Ventilator 80 02/28/17 21:00 89/34 02/28/17 20:49 137 22 80 02/28/17 20:30 111 22 61/41 100 Mechanical Ventilator 80 02/28/17 20:00 110 22 106/76 100 Mechanical Ventilator 80 02/28/17 20:00 106/76 02/28/17 20:00 80 02/28/17 20:00 110 02/28/17 19:30 98.2 108 25 108/27 100 Mechanical Ventilator 80 02/28/17 19:25 108 22 80 02/28/17 19:24 120 02/28/17 19:00 108 22 93/51 100 Mechanical Ventilator 80 02/28/17 18:45 109 33 88/46 100 Mechanical Ventilator 80 02/28/17 18:30 110 33 78/46 100 Mechanical Ventilator 80 02/28/17 18:15 112 33 76/39 100 Mechanical Ventilator 80 02/28/17 18:00 116 33 90/50 100 Mechanical Ventilator 80 02/28/17 17:45 166 33 104/58 100 Mechanical Ventilator 80 02/28/17 17:15 128 33 127/64 100 Mechanical Ventilator 50 02/28/17 17:00 95/53 02/28/17 16:46 97 30 50 02/28/17 16:45 112 33 111/36 100 Mechanical Ventilator 50 02/28/17 16:30 101 32 112/78 100 Mechanical Ventilator 50 02/28/17 16:19 110 94/58 02/28/17 16:15 110 27 95/53 100 Mechanical Ventilator 50 02/28/17 16:00 110 02/28/17 16:00 98.3 110 20 94/58 100 Mechanical Ventilator 50 02/28/17 16:00 50 02/28/17 15:30 109 27 91/58 100 Mechanical Ventilator 50 02/28/17 15:00 108 26 82/55 100 Mechanical Ventilator 50 02/28/17 14:40 107 27 50 02/28/17 14:30 104 26 85/50 100 Mechanical Ventilator 50 02/28/17 14:00 107 26 85/42 100 Mechanical Ventilator 50 02/28/17 13:30 110 26 89/49 100 Mechanical Ventilator 50 02/28/17 12:58 114 29 50 02/28/17 12:30 112 26 103/57 100 Mechanical Ventilator 50 Intake and Output 03/01/17 03/02/17 19:00 07:00 Intake Total 938.50 ml Output Total 0 ml Balance 938.50 ml Intake IV Total 938.50 ml Output Urine Total 0 ml Laboratory Tests 03/01/17 04:20: White Blood Count 38.0*H, Red Blood Count 2.68L, Hemoglobin 7.4L, Hematocrit 23.8L, Mean Corpuscular Volume 89, Mean Corpuscular Hemoglobin 27.6, Mean Corpuscular Hemoglobin Concent 31.1L, Red Cell Distribution Width 19.4H, Platelet Count 168#, Mean Platelet Volume 7.2, Neutrophils (%) (Auto) , Lymphocytes (%) (Auto) , Monocytes (%) (Auto) , Eosinophils (%) (Auto) , Basophils (%) (Auto) , Differential Total Cells Counted 100, Neutrophils % ( Manual) 94H, Lymphocytes % (Manual) 4L, Monocytes % (Manual) 2, Eosinophils % ( Manual) 0, Basophils % (Manual) 0, Band Neutrophils 0, Platelet Estimate Adequate, Platelet Morphology Normal, Hypochromasia 1+, Anisocytosis 1+, Sodium Level 128L, Potassium Level 4.2, Chloride Level 97L, Carbon Dioxide Level 19L, Anion Gap 12, Blood Urea Nitrogen 47H, Creatinine 2.9H, Estimat Glomerular Filtration Rate 16.5, Glucose Level 179H, Uric Acid 7.1, Calcium Level 6.6L, Phosphorus Level 4.2, Magnesium Level 1.8, Total Bilirubin 1.0, Aspartate Amino Transf (AST/SGOT) 35, Alanine Aminotransferase (ALT/SGPT) 14, Alkaline Phosphatase 119H, Troponin I 2.214H, C-Reactive Protein, Quantitative 17.2H, Pro -B-Type Natriuretic Peptide > 78368S, Total Protein 4.9L, Albumin 1.8L, Globulin 3.1, Albumin/Globulin Ratio 0.6L, Triglycerides Level 158H, Cholesterol Level 93, LDL Cholesterol 42, HDL Cholesterol 13L, Cholesterol/HDL Ratio 7.2H, Digoxin Level 1.9 Height (Feet): 5 Height (Inches): 7.00 Weight (Pounds): 175 General Appearance: mild distress EENT: other - on vent Cardiovascular: tachycardia Respiratory/Chest: decreased breath sounds Abdomen: distended JAQUELINE DEMPSEY Mar 01, 2017 12:14
[2017-03-01 12:28] LABS: OTHERS PATHOLOGIST COMMENT
--- NOTE | 2017-03-01 14:13 | General Surgery Progress Note ---
General Surgery-Progress Note Subjective Symptoms: worse Additional Comments on pressors. code status changed. still with bacteremia. prognosis poor. Objective Last 24 Hour Vital Signs Date Time Temp Pulse Resp B/P (MAP) Pulse Ox O2 Delivery O2 Flow Rate FiO2 03/01/17 14:04 127 86/41 03/01/17 13:30 121 21 108/60 98 Mechanical Ventilator 100 03/01/17 13:04 128 20 100 03/01/17 13:00 122 20 111/40 100 Mechanical Ventilator 100 03/01/17 12:30 120 21 111/64 100 Mechanical Ventilator 100 03/01/17 12:00 100 03/01/17 12:00 98.4 118 20 119/72 96 Mechanical Ventilator 100 03/01/17 12:00 114 03/01/17 11:30 120 21 115/50 100 Mechanical Ventilator 100 03/01/17 11:04 117 124/55 03/01/17 11:00 117 20 124/79 100 Mechanical Ventilator 100 03/01/17 11:00 120/79 03/01/17 10:30 119 23 103/73 100 Mechanical Ventilator 100 03/01/17 10:30 117 22 100 03/01/17 10:00 111/57 03/01/17 10:00 118 21 111/57 100 Mechanical Ventilator 100 03/01/17 09:30 116 22 115/49 100 Mechanical Ventilator 100 03/01/17 09:06 106/36 03/01/17 09:00 114 22 106/36 100 Mechanical Ventilator 100 03/01/17 09:00 106/36 03/01/17 08:46 118 22 100 03/01/17 08:30 116 23 109/53 96 Mechanical Ventilator 100 03/01/17 08:00 98.8 115 20 102/47 96 Mechanical Ventilator 100 03/01/17 08:00 114 03/01/17 08:00 109/53 03/01/17 08:00 100 03/01/17 07:30 117 22 100/58 96 Mechanical Ventilator 100 03/01/17 07:00 115 19 103/51 96 Mechanical Ventilator 100 03/01/17 06:48 115 21 100 03/01/17 06:30 115 21 107/39 96 Mechanical Ventilator 100 03/01/17 06:00 114 21 106/48 92 Mechanical Ventilator 100 03/01/17 05:30 113 21 105/55 92 Mechanical Ventilator 100 03/01/17 05:18 114 22 100 03/01/17 05:00 121 23 86/47 92 Mechanical Ventilator 100 03/01/17 04:30 118 21 107/53 92 Mechanical Ventilator 100 03/01/17 04:00 100 03/01/17 04:00 102/41 03/01/17 04:00 98.4 118 20 102/41 90 Mechanical Ventilator 100 03/01/17 04:00 118 03/01/17 03:30 115 20 102/40 90 Mechanical Ventilator 100 03/01/17 03:22 112 21 100 03/01/17 03:00 113 20 98/43 90 Mechanical Ventilator 100 03/01/17 03:00 98/43 03/01/17 02:45 105/49 03/01/17 02:30 104 21 105/49 92 Mechanical Ventilator 100 03/01/17 02:30 95 108/68 03/01/17 02:10 131 108/68 03/01/17 02:00 140 22 108/68 92 Mechanical Ventilator 100 03/01/17 02:00 100/68 03/01/17 01:30 108 21 110/39 92 Mechanical Ventilator 100 03/01/17 01:28 106 20 100 03/01/17 01:00 113/38 03/01/17 01:00 109 22 113/38 90 Mechanical Ventilator 80 03/01/17 00:30 109 21 109/34 92 Mechanical Ventilator 80 03/01/17 00:00 98.7 110 21 110/43 95 Mechanical Ventilator 80 03/01/17 00:00 110/43 02/28/17 23:30 110 24 117/30 98 Mechanical Ventilator 80 02/28/17 23:27 110 20 80 02/28/17 23:00 109 24 111/38 100 Mechanical Ventilator 80 02/28/17 23:00 111/38 02/28/17 22:30 108 21 109/49 100 Mechanical Ventilator 80 02/28/17 22:11 71/35 02/28/17 22:00 71/35 02/28/17 22:00 105 26 71/35 100 Mechanical Ventilator 80 02/28/17 21:30 149 36 100/69 99 Mechanical Ventilator 80 02/28/17 21:00 159 30 89/34 100 Mechanical Ventilator 80 02/28/17 21:00 89/34 02/28/17 20:49 137 22 80 12/6/17 20:30 111 22 61/41 100 Mechanical Ventilator 80 02/28/17 20:00 110 22 106/76 100 Mechanical Ventilator 80 02/28/17 20:00 106/76 02/28/17 20:00 80 02/28/17 20:00 110 02/28/17 19:30 98.2 108 25 108/27 100 Mechanical Ventilator 80 02/28/17 19:25 108 22 80 02/28/17 19:24 120 02/28/17 19:00 108 22 93/51 100 Mechanical Ventilator 80 02/28/17 18:45 109 33 88/46 100 Mechanical Ventilator 80 02/28/17 18:30 110 33 78/46 100 Mechanical Ventilator 80 02/28/17 18:15 112 33 76/39 100 Mechanical Ventilator 80 02/28/17 18:00 116 33 90/50 100 Mechanical Ventilator 80 02/28/17 17:45 166 33 104/58 100 Mechanical Ventilator 80 02/28/17 17:15 128 33 127/64 100 Mechanical Ventilator 50 02/28/17 17:00 95/53 02/28/17 16:46 97 30 50 02/28/17 16:45 112 33 111/36 100 Mechanical Ventilator 50 02/28/17 16:30 101 32 112/78 100 Mechanical Ventilator 50 02/28/17 16:19 110 94/58 02/28/17 16:15 110 27 95/53 100 Mechanical Ventilator 50 02/28/17 16:00 110 02/28/17 16:00 98.3 110 20 94/58 100 Mechanical Ventilator 50 02/28/17 16:00 50 02/28/17 15:30 109 27 91/58 100 Mechanical Ventilator 50 02/28/17 15:00 108 26 82/55 100 Mechanical Ventilator 50 02/28/17 14:40 107 27 50 02/28/17 14:30 104 26 85/50 100 Mechanical Ventilator 50 I&O Intake and Output 03/01/17 03/02/17 19:00 07:00 Intake Total 1249.05 ml Output Total 0 ml Balance 1249.05 ml Intake IV Total 1249.05 ml Output Urine Total 0 ml Extremities: edema Laboratory Tests Test 03/01/17 04:20 White Blood Count 38.0 K/UL (4.8-10.8) *H Red Blood Count 2.68 M/UL (4.20-5.40) L Hemoglobin 7.4 G/DL (12.0-16.0) L Hematocrit 23.8 % (37.0-47.0) L Mean Corpuscular Volume 89 FL (80-99) Mean Corpuscular Hemoglobin 27.6 PG (27.0-31.0) Mean Corpuscular Hemoglobin Concent 31.1 G/DL (32.0-36.0) L Red Cell Distribution Width 19.4 % (11.6-14.8) H Platelet Count 168 K/UL (150-450) # Mean Platelet Volume 7.2 FL (6.5-10.1) Neutrophils (%) (Auto) % (45.0-75.0) Lymphocytes (%) (Auto) % (20.0-45.0) Monocytes (%) (Auto) % (1.0-10.0) Eosinophils (%) (Auto) % (0.0-3.0) Basophils (%) (Auto) % (0.0-2.0) Differential Total Cells Counted 100 Neutrophils % (Manual) 94 % (45-75) H Lymphocytes % (Manual) 4 % (20-45) L Monocytes % (Manual) 2 % (1-10) Eosinophils % (Manual) 0 % (0-3) Basophils % (Manual) 0 % (0-2) Band Neutrophils 0 % (0-8) Platelet Estimate Adequate Platelet Morphology Normal Hypochromasia 1+ Anisocytosis 1+ Sodium Level 128 MMOL/L (136-145) L Potassium Level 4.2 MMOL/L (3.5-5.1) Chloride Level 97 MMOL/L (98-107) L Carbon Dioxide Level 19 MMOL/L (21-32) L Anion Gap 12 mmol/L (5-15) Blood Urea Nitrogen 47 mg/dL (7-18) H Creatinine 2.9 MG/DL (0.55-1.30) H Estimat Glomerular Filtration Rate 16.5 mL/min (>60) Glucose Level 179 MG/DL (74-106) H Uric Acid 7.1 MG/DL (2.6-7.2) Calcium Level 6.6 MG/DL (8.5-10.1) L Phosphorus Level 4.2 MG/DL (2.5-4.9) Magnesium Level 1.8 MG/DL (1.8-2.4) Total Bilirubin 1.0 MG/DL (0.2-1.0) Aspartate Amino Transf (AST/SGOT) 35 U/L (15-37) Alanine Aminotransferase (ALT/SGPT) 14 U/L (12-78) Alkaline Phosphatase 119 U/L (46-116) H Troponin I 2.214 ng/mL (0.000-0.056) C-Reactive Protein, Quantitative 17.2 mg/dL (0.00-0.90) H Pro-B-Type Natriuretic Peptide > 65663 pg/mL (0-125) H Total Protein 4.9 G/DL (6.4-8.2) L Albumin 1.8 G/DL (3.4-5.0) L Globulin 3.1 g/dL Albumin/Globulin Ratio 0.6 (1.0-2.7) L Triglycerides Level 158 MG/DL (30-150) H Cholesterol Level 93 MG/DL (< 200) LDL Cholesterol 42 mg/dL (<100) HDL Cholesterol 13 MG/DL (40-60) L Cholesterol/HDL Ratio 7.2 (3.3-4.4) H Digoxin Level 1.9 NG/ML (0.9-2.0) Additional Comments right chest wall catheter removal site clean. some serous drainage but no signs of active infection from tunneled cath site Plan Problems: (1) Central venous line infection Assessment & Plan: 62 F with likely infected tunneled right IJ central venous catheter causing septic shock. Catheter removed at bedside without difficulty. upon removal of catheter purulent discharge was noted at insertion site and evacuated. site cleaned and dressings applied. good hemostasis noted. tip sent for culture. discharge sent for culture. cultures Staph A afebrile, on pressors, critical, leukocytosis. bacteremia. -prognosis poor. -continue current care and management. -IV abx as per ID thank you for this consultation. will follow with recs. Zac Rodriguez Mar 01, 2017 14:13
--- NOTE | 2017-03-01 15:31 | Diagnostic Imaging Report ---
Indication: Abnormal renal function tests. Abnormal liver function tests, abnormal recent CT scan Technique: Zaman-scale and duplex images of the upper abdomen were obtained Comparison: CT scan of 02/27/2017 Findings: Is trace ascites Gallbladder demonstrates a large gallstone. Gallbladder wall is not thickened. Sonographic Sarabia's sign could not be assessed as patient is on ventilator. Common bile duct measures 5 mm in diameter. No intrahepatic biliary ductal dilatation. Liver demonstrates heterogeneous overall increased echogenicity, no focal abnormality. Portal vein and hepatic veins are patent. Pancreas is unremarkable. Spleen is unremarkable. Left kidney measures cm in length. Right kidney measures 10.2 cm length. It demonstrates equivocally slightly increased echogenicity. There is no hydronephrosis. In the left renal fossa, there is a mixed echogenicity structure that contains fluid and debris, measures 16.6 x 12.2 cm. Abdominal aorta is partially obscured by bowel gas, visualized portions are non-aneurysmal . Impression: Cholelithiasis. No definite gallbladder wall thickening. Negative for dilated ducts Left renal fossa fluid collection with fluid and debris, presumably corresponding to the abnormality demonstrated on recent CT scan. As described previously, given the presence of vascular embolization coils centrally, this could represent old hematoma Trace ascites Heterogeneous hepatic echotexture, may indicate hepatocellular disease Note incomplete visualization of the abdominal aorta
[2017-03-01] MEDS ORDERED: NS 500ML ONE (15:54)
[2017-03-01] MEDS ORDERED: Sterile Water Irrig 1000ml IRRIG ONE (15:54)
[2017-03-01] MEDS ORDERED: Tubing Blood Filter IV ONE (15:54)
[2017-03-01 17:42] LABS: ABG BASE EXCESS -12.2; ABG PCO2 36.3 mmHg (35.0-45.0)
[2017-03-01 17:43] LABS: ABG ALLEN TEST POSITIVE
[2017-03-01] MEDS: Dyna-Hex 2% Top Sol 2oz TOPIC SCH (20:14)
--- NOTE | 2017-03-01 22:15 | Consultation ---
DATE OF CONSULTATION: 03/01/2017 UROLOGY CONSULTATION CONSULTING PHYSICIAN: Irving Lim M.D. ATTENDING/REFERRING PHYSICIAN: Marcos Cason M.D. CHIEF COMPLAINT AND HISTORY OF PRESENT ILLNESS: I was asked by Dr. Cason to evaluate this unfortunate 62-year-old female regarding history of a large left kidney fluid collection/hematoma noted on imaging. Briefly, the patient has an unfortunate history of septic shock and a recent Code Blue arrest. She is in the ICU. Workup with imaging revealed a subcapsular fluid collection around the left kidney, which was very large and coils in the renal vessels consistent with embolization for possibly a hematoma. The patient cannot provide any information as she is in septic shock. PAST MEDICAL HISTORY: 1. Septic shock/altered level of consciousness. 2. ESRD. 3. Respiratory failure. 4. Peripheral vascular disease. 5. Hemolytic uremic syndrome. 6. CHF. 7. Anemia. MEDICATIONS: Please see the chart for current medications administration details. ALLERGIES: Include penicillin and Zosyn. SOCIAL HISTORY: Unavailable. FAMILY HISTORY: Noncontributory/unavailable. REVIEW OF SYSTEMS: A 12-system review of systems cannot be done as the patient cannot cooperate with questioning. PHYSICAL EXAMINATION: GENERAL: The patient is an older female, intubated and sedated in the ICU, in no obvious distress at the moment. HEENT: NC/AT. Eyes taped closed. NECK: Supple. CHEST: Within normal limits. ABDOMEN: Soft, nontender, and nondistended. GENITOURINARY: Reveals normal female external genitalia. EXTREMITIES: Warm and well perfused. No cyanosis, clubbing, or edema. NEUROLOGIC: Cannot be done as the patient cannot cooperate with the exam. LABORATORY DATA: White blood cell count 38, hematocrit 23.8, platelets 168,000. PT 13.4, INR 1.3, PTT 46. Sodium 128, potassium 4.2, chloride 97, bicarbonate 19, BUN 47, creatinine 2.9, glucose 179, calcium 6.6. Uric acid 7.1. LFTs within normal limits. Alkaline phosphatase 119. Troponin 2.2. B-natriuretic peptide greater than 35,000. C-reactive protein 17.2. DIAGNOSTIC IMAGING: CT scan of the abdomen and pelvis reveals anasarca and diffuse bilateral pulmonary and parenchymal airspace consolidation, cardiomegaly, pericardial effusion, a massive fluid collection around the left kidney likely subcapsular with vascular embolization coils in the left renal hilum raising the possibility for this to be residual from previous perinephric hematoma among other findings. ASSESSMENT AND PLAN: In summary, this patient is a 62-year-old female with history of septic shock, end-stage renal disease, and respiratory failure. She had imaging done which revealed a large fluid collection/hematoma around her kidney and vascular coils consistent with the latter. Physical exam does not reveal anything from genitourinary standpoint. Laboratory data revealed evidence of renal failure and an extremely elevated white blood cell count. Diagnostic imaging reveals the findings described above. I feel this patient may have had a previous vascular intervention to embolize hematoma or renal mass. There is no way of knowing without previous imaging whether or not the mass has increased or changed in size or decreased over time. Given her overall critical health, there is no role for surgical intervention at this time. If the patient made miraculous recovery, eventually she will have serial imaging to assess any changes in this mass and the need for removal of same as warranted. I will see this patient as needed. Irving Lim M.D. DR: Francois JOB#: [id number] CC:
[2017-03-02] VITALS (24 sets, daily range): BP systolic 56–125; BP diastolic 33–70
[2017-03-02] MEDS: Phenylephrine 50 MG in D5W 245 ML IV SCH (04:06)
[2017-03-02] MEDS: Norepinephrine Bitartrate 8 MG in D5W 500ml 550 ML IV SCH (04:33)
[2017-03-02] MEDS: dilTIAZem HCl 25mg/5ml Inj IVP PRN (09:08)
[2017-03-02] MEDS: Vancomycin oral 125mg/2.5ml NG SCH (09:09)
[2017-03-02] MEDS: Pantoprazole Inj IVP SCH (09:09)
[2017-03-02] MEDS: Heparin 5000 units/ml inj SUBQ SCH (09:20)
--- NOTE | 2017-03-02 09:21 | Diagnostic Imaging Report ---
Indication: Pain Technique: XRAY KNEE THREE VIEWS LEFT Comparison: None Findings: There is an acute fracture or dislocation. Minimal degenerative changes manifested by tiny osteophyte formation. No suprapatellar joint effusion is seen. No radiopaque foreign body noted. Mild reticulation noted in the soft tissues also suggesting edema. Impression: No acute fracture or dislocation. Question mild edema of the leg. Correlate clinically.
--- NOTE | 2017-03-02 09:21 | Diagnostic Imaging Report ---
Indication: Pain Technique: XRAY KNEE THREE VIEWS RIGHT Comparison: None Findings: There is an acute fracture or dislocation. Minimal degenerative changes manifested by tiny osteophyte formation. No suprapatellar joint effusion is seen. No radiopaque foreign body noted. Mild reticulation noted in the soft tissues also suggesting edema. Impression: No acute fracture or dislocation. Question mild edema of the leg. Correlate clinically.
--- NOTE | 2017-03-02 10:15 | Progress Note ---
DATE: 03/01/2017 SUBJECTIVE: The patient remains on ampicillin drip, nonresponsive, nondependent, however, her blood pressure parameter has improved. PHYSICAL EXAMINATION: VITAL SIGNS: Blood pressure 100/37, pulse is 119, respirations of 21, and temperature is 98.8 degrees. HEENT: Eyes were normal. ENT, mucous membranes were moist and intact. NECK: Supple with no JVD without lymph nodes. LUNGS: Clear. HEART: Normal sounds with irregular beats. Benign tachycardia at rest. Sinus tachycardia on the monitor. ABDOMEN: Soft and nontender with normal bowel sounds. Gastrostomy site is clean. EXTREMITIES: Warm without cyanosis, clubbing, or edema. LABORATORY AND DIAGNOSTIC DATA: Hemoglobin is 7.4, hematocrit 23.8, MCV of 89, WBC of 38,000, and platelets are 168,000. Her BUN and creatinine are 47 and 2.9 respectively. Her sodium is 138, potassium 4.2, chloride 97, and CO2 is 19. Uric acid is 7.1 and calcium is 6.6. Phosphorus is 4.2. Magnesium yesterday was 16. Her troponin level is 2.2. Her CRP is 17.3. It was 16.4 yesterday. Albumin is 1.8. Total protein is 1.9. HDL is , however, LDL is 42. Chest x-ray shows bilateral infiltrate as well as edema. The patient's images unchanged from the present day. IMPRESSION AND PLAN: The patient is status post cardiogenic shock as well as myocardial injury. At present, she is nonresponsive. Repeat laboratory tests will be done in the morning as ordered by physician. Zamzam Velazquez M.D. DR: SADIA JOB#: [id number] CC:
[2017-03-02] MEDS ORDERED: Morphine Sulfate 10mg/ml Inj IVP ONE (10:45)
[2017-03-02] MEDS ORDERED: Artificial Tears 1.4% Op Soln BOTH EYES PRN (10:45)
[2017-03-02] MEDS ORDERED: Haloperidol 5mg/ml Inj IM PRN (10:45)
[2017-03-02] MEDS ORDERED: Glycopyrrolate 0.2mg/ml 1ml Vial IV PRN (10:45)
[2017-03-02] MEDS ORDERED: PCA Morphine 1mg/ml 30 ML IV PRN (10:45)
[2017-03-02] MEDS ORDERED: Prochlorperazine 10mg tab ORAL PRN (10:45)
--- NOTE | 2017-03-02 10:46 | Pulmonolgy Critical Care Note ---
Critical Care - Asmt/Plan Problems: (1) ESRF (end stage renal failure) (2) Respiratory failure, acute (3) Septic shock (4) Altered level of consciousness (5) Hypotension (6) PVD (peripheral vascular disease) (7) Cardiac arrest Respiratory: monitor respiratory rate Cardiac: continue pressors, continue to monitor HR/BP Renal: F/U I&O Infectious Disease: check cultures Gastrointestinal: continue feedings/current rate Endocrine: monitor blood sugar, continue sliding scale insulin Hematologic: transfuse if hgb<8.5 Neurologic: PRN Morphine, keep patient comfortable Prophylaxis: Protonix, Heparin Notes Reviewed: cardio, renal Discussed with: nurses, consultants, rn case mgrnetwork program manager - Objective Last 24 Hour Vital Signs Date Time Temp Pulse Resp B/P (MAP) Pulse Ox O2 Delivery O2 Flow Rate FiO2 03/02/17 09:08 122 93/54 03/02/17 09:00 123 20 80 03/02/17 08:00 80 03/02/17 08:00 96/64 03/02/17 08:00 122 03/02/17 08:00 98.8 122 19 98/59 100 Mechanical Ventilator 80 03/02/17 07:30 122 20 96/54 100 Mechanical Ventilator 80 03/02/17 07:00 86/63 03/02/17 07:00 121 20 96/51 100 Mechanical Ventilator 80 03/02/17 06:59 120 20 80 03/02/17 06:30 120 20 86/70 100 Mechanical Ventilator 80 03/02/17 06:00 86/70 03/02/17 06:00 120 21 95/63 99 Mechanical Ventilator 80 03/02/17 05:30 121 22 109/39 99 Mechanical Ventilator 80 03/02/17 05:27 120 21 80 03/02/17 05:00 120 24 125/48 99 Mechanical Ventilator 80 03/02/17 05:00 98/40 03/02/17 04:33 98/40 03/02/17 04:30 99.0 121 20 97/61 100 Mechanical Ventilator 80 03/02/17 04:06 121 100/48 03/02/17 04:00 121 03/02/17 04:00 80 03/02/17 04:00 101/51 03/02/17 04:00 121 20 103/51 100 Mechanical Ventilator 80 03/02/17 03:30 120 20 98/54 100 Mechanical Ventilator 80 03/02/17 03:00 100/46 03/02/17 03:00 122 21 100/46 100 Mechanical Ventilator 80 03/02/17 02:55 122 22 80 03/02/17 02:30 122 22 101/46 100 Mechanical Ventilator 80 03/02/17 02:00 104/46 03/02/17 02:00 121 22 104/46 100 Mechanical Ventilator 80 03/02/17 01:30 121 23 103/48 100 Mechanical Ventilator 80 03/02/17 01:08 118 19 80 03/02/17 01:00 119 21 96/40 100 Mechanical Ventilator 80 03/02/17 00:54 102/65 03/02/17 00:30 123 22 102/65 100 Mechanical Ventilator 80 03/02/17 00:00 99.0 119 22 107/54 100 Mechanical Ventilator 80 03/02/17 00:00 107/54 03/01/17 23:30 118 21 106/42 100 Mechanical Ventilator 80 03/01/17 23:21 102/52 03/01/17 23:09 122 21 80 03/01/17 23:00 120 21 101/48 100 Mechanical Ventilator 80 03/01/17 22:30 120 21 105/40 100 Mechanical Ventilator 80 03/01/17 22:00 119 21 100/37 100 Mechanical Ventilator 80 03/01/17 22:00 100/37 03/01/17 21:30 119 21 104/52 100 Mechanical Ventilator 80 03/01/17 21:25 121 21 80 03/01/17 21:00 118 22 102/48 100 Mechanical Ventilator 80 03/01/17 21:00 102/48 03/01/17 20:30 118 21 102/42 100 Mechanical Ventilator 80 03/01/17 20:12 120 114/45 03/01/17 20:00 118 22 114/45 93 Mechanical Ventilator 80 03/01/17 20:00 118 03/01/17 20:00 114/45 03/01/17 20:00 80 03/01/17 19:30 98.8 120 21 106/55 93 Mechanical Ventilator 80 03/01/17 19:00 118 23 101/52 94 Mechanical Ventilator 100 03/01/17 19:00 101/52 03/01/17 18:53 119 19 80 03/01/17 18:44 98/49 03/01/17 18:30 119 22 98/49 98 Mechanical Ventilator 100 03/01/17 18:00 120 22 107/36 94 Mechanical Ventilator 100 03/01/17 18:00 107/36 03/01/17 17:35 80 03/01/17 17:30 122 20 111/37 94 Mechanical Ventilator 100 03/01/17 17:00 113/67 03/01/17 17:00 118 20 108/46 98 Mechanical Ventilator 100 03/01/17 16:58 122 25 100 03/01/17 16:30 121 20 101/63 94 Mechanical Ventilator 100 03/01/17 16:00 80 03/01/17 16:00 119 03/01/17 16:00 107/50 03/01/17 16:00 99.0 120 20 107/50 98 Mechanical Ventilator 100 03/01/17 15:30 118 20 100/61 94 Mechanical Ventilator 100 03/01/17 15:00 107/48 03/01/17 15:00 123 21 100 03/01/17 15:00 110 19 107/48 100 Mechanical Ventilator 100 03/01/17 14:30 116 21 116/74 100 Mechanical Ventilator 100 03/01/17 14:18 94/65 03/01/17 14:04 127 86/41 03/01/17 14:00 109/33 03/01/17 14:00 108 20 91/63 100 Mechanical Ventilator 100 03/01/17 13:30 121 21 108/60 98 Mechanical Ventilator 100 03/01/17 13:04 128 20 100 03/01/17 13:00 122 20 111/40 100 Mechanical Ventilator 100 03/01/17 13:00 96/65 03/01/17 12:30 120 21 111/64 100 Mechanical Ventilator 100 03/01/17 12:00 100 03/01/17 12:00 94/73 03/01/17 12:00 98.4 118 20 119/72 96 Mechanical Ventilator 100 03/01/17 12:00 114 03/01/17 11:30 120 21 115/50 100 Mechanical Ventilator 100 03/01/17 11:04 117 124/55 03/01/17 11:00 117 20 124/79 100 Mechanical Ventilator 100 03/01/17 11:00 120/79 Status: awake Condition: critical Lungs: clear Heart: HR/BP stable, HR/BP unstable, regular Abdomen: non-tender, active bowel sounds Extremities: no C/C/E, edema Critical Care - Subjective ROS Limited/Unobtainable: No ICU Day: 6 Intubation Day: 6 Condition: critical EKG Rhythm: Sinus Rhythm FI02: 80 Vent Support Breath Rate: 16 Vent Support Mode: AC Vent Tidal Volume: 600 Sputum Amount: Scant PIP: 35 Drips: Levophed and neosynephrine Tube Feeding Amount: 20 I&O: Intake and Output 03/02/17 03/03/17 19:00 07:00 Intake Total 204.62 ml Output Total 0 ml Balance 204.62 ml Intake IV Total 204.62 ml Output Urine Total 0 ml CXR: ET in good place extensive infiltrate ET-Tube: 7.5 ET Position: 25 Labs: Laboratory Tests Test 03/01/17 17:25 03/02/17 04:00 Arterial Blood pH 7.220 (7.350-7.450) Arterial Blood Partial Pressure CO2 36.3 mmHg (35.0-45.0) Arterial Blood Partial Pressure O2 252.4 mmHg (75.0-100.0) H Arterial Blood HCO3 14.5 mmol/L (22.0-26.0) L Arterial Blood Oxygen Saturation 98.8 % (92.0-98.0) H Arterial Blood Base Excess -12.2 Farhan Test Positive Random Vancomycin Level 20.1 ug/mL BHAVIN PARKER Mar 02, 2017 10:46
--- NOTE | 2017-03-02 11:31 | Cardiology Report ---
APPROVED REPORT EKG Measurement Heart [id number] Sinus tachycardia with occasional premature atrial complexes Right axis deviation Incomplete right bundle branch block Possible Right ventricular hypertrophy Septal infarct, age undetermined Abnormal ECG
--- NOTE | 2017-03-02 12:40 | Infectious Diseases Prog Note ---
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 -CT chest abd/p: Anasarca, as described, with diffuse edema of the subcutaneous , abdominal, and mediastinal fat, ascites, pericardial fluid, and bilateral pleural effusions. Extensive diffuse bilateral pulmonary parenchymal airspace consolidation. This may represent pulmonary edema or infiltrates. Atelectasis of portions of the left lower lobe. Complete endobronchial occlusion of the left lower lobe bronchus and proximal segmental bronchi, is likely due to secretions. Cardiomegaly. Endotracheal tube, central venous catheter, nasogastric tube in good positions. Air bubbles within the left ventricle and pulmonary artery, may reflect small air emboli from IV access. Incidental finding of evidence of old granulomatous disease within a right. paratracheal node. Massive fluid collection surrounding the left kidney, probably subcapsular . Presence of vascular embolization coils in the left renal hilum raises possibility of this could be the residua of a prior perinephric hematoma. Correlate with clinical history. Other etiologies also possible. Equivocal mild wall thickening of the sigmoid and distal descending colon. Probably artifact of under distention, but colitis not excludable. Diverticulosis. Cholelithiasis Acute respiratory failure s/p intubation- 2ry to Sepsis and CHF, PNA; now ARDS -CXR 02/28: Bilateral interstitial and alveolar infiltrates, new or increased since prior study of 02/25/2017 Hyperleukocytosis, persistent- likely 2ry to undrained abscess FEver- improving Cholelithiasis- ?cholecystitis -CT: The gallbladder is distended, contains a large gallstone. No definite biliary ductal dilatation. B/l knee synovitis- r/o septic arthritis Troponinemia> NSTEMI 1 vs 2- improving Thrombocytopenia, impoved s/p platelets transfussion Hx of Cdiff- unclear when and tx -No BM here, has abd pain- -abd xray: Single prominent gas-filled bowel loop is seen in the midabdomen, probably transverse colon, appearance nonspecific. -Cdiff pending Sacral decubitus, superficial- no signs of infection -wound cx: ESBL E.coli, S.aureus, Enterococcus fecalis (S Vanco, ampicillin) ESRD on HD T// HTN, chronic dCHF, CKD, HLD HUS, muscle wasting/atrophy, fdc resident Plan: -Patient made comfort care and abx discontinued ID will sign off now, please call back if goals of care are changed. Subjective Allergies: Coded Allergies: PENICILLINS (Verified Allergy, Unknown, 02/25/17) PIPERACILLIN (Verified Allergy, Unknown, 02/25/17) TAZOBACTAM (Verified Allergy, Unknown, 02/25/17) Subjective patient made comfort care Objective Vital Signs Last 24 Hour Vital Signs Date Time Temp Pulse Resp B/P (MAP) Pulse Ox O2 Delivery O2 Flow Rate FiO2 03/02/17 11:30 55 0 60/33 0 Mechanical Ventilator 03/02/17 11:00 70 23 56/33 79 Mechanical Ventilator 80 03/02/17 10:44 120 20 80 03/02/17 10:30 121 20 87/54 100 Mechanical Ventilator 80 03/02/17 10:00 118 19 88/53 100 Mechanical Ventilator 80 03/02/17 09:30 106 19 79/37 100 Mechanical Ventilator 80 03/02/17 09:08 122 93/54 03/02/17 09:00 122 19 93/54 100 Mechanical Ventilator 80 03/02/17 09:00 123 20 80 03/02/17 08:30 122 20 97/44 100 Mechanical Ventilator 80 03/02/17 08:00 80 03/02/17 08:00 96/64 03/02/17 08:00 122 03/02/17 08:00 98.8 122 19 98/59 100 Mechanical Ventilator 80 03/02/17 07:30 122 20 96/54 100 Mechanical Ventilator 80 03/02/17 07:00 86/63 03/02/17 07:00 121 20 96/51 100 Mechanical Ventilator 80 03/02/17 06:59 120 20 80 03/02/17 06:30 120 20 86/70 100 Mechanical Ventilator 80 03/02/17 06:00 86/70 03/02/17 06:00 120 21 95/63 99 Mechanical Ventilator 80 03/02/17 05:30 121 22 109/39 99 Mechanical Ventilator 80 03/02/17 05:27 120 21 80 03/02/17 05:00 120 24 125/48 99 Mechanical Ventilator 80 03/02/17 05:00 98/40 03/02/17 04:33 98/40 03/02/17 04:30 99.0 121 20 97/61 100 Mechanical Ventilator 80 03/02/17 04:06 121 100/48 03/02/17 04:00 121 03/02/17 04:00 80 03/02/17 04:00 101/51 03/02/17 04:00 121 20 103/51 100 Mechanical Ventilator 80 03/02/17 03:30 120 20 98/54 100 Mechanical Ventilator 80 03/02/17 03:00 100/46 03/02/17 03:00 122 21 100/46 100 Mechanical Ventilator 80 03/02/17 02:55 122 22 80 03/02/17 02:30 122 22 101/46 100 Mechanical Ventilator 80 03/02/17 02:00 104/46 03/02/17 02:00 121 22 104/46 100 Mechanical Ventilator 80 03/02/17 01:30 121 23 103/48 100 Mechanical Ventilator 80 03/02/17 01:08 118 19 80 03/02/17 01:00 119 21 96/40 100 Mechanical Ventilator 80 03/02/17 00:54 102/65 03/02/17 00:30 123 22 102/65 100 Mechanical Ventilator 80 03/02/17 00:00 99.0 119 22 107/54 100 Mechanical Ventilator 80 03/02/17 00:00 107/54 03/01/17 23:30 118 21 106/42 100 Mechanical Ventilator 80 03/01/17 23:21 102/52 03/01/17 23:09 122 21 80 03/01/17 23:00 120 21 101/48 100 Mechanical Ventilator 80 03/01/17 22:30 120 21 105/40 100 Mechanical Ventilator 80 03/01/17 22:00 119 21 100/37 100 Mechanical Ventilator 80 03/01/17 22:00 100/37 03/01/17 21:30 119 21 104/52 100 Mechanical Ventilator 80 03/01/17 21:25 121 21 80 03/01/17 21:00 118 22 102/48 100 Mechanical Ventilator 80 03/01/17 21:00 102/48 03/01/17 20:30 118 21 102/42 100 Mechanical Ventilator 80 03/01/17 20:12 120 114/45 03/01/17 20:00 118 22 114/45 93 Mechanical Ventilator 80 03/01/17 20:00 118 03/01/17 20:00 114/45 03/01/17 20:00 80 03/01/17 19:30 98.8 120 21 106/55 93 Mechanical Ventilator 80 03/01/17 19:00 118 23 101/52 94 Mechanical Ventilator 100 03/01/17 19:00 101/52 03/01/17 18:53 119 19 80 03/01/17 18:44 98/49 03/01/17 18:30 119 22 98/49 98 Mechanical Ventilator 100 03/01/17 18:00 120 22 107/36 94 Mechanical Ventilator 100 03/01/17 18:00 107/36 03/01/17 17:35 80 03/01/17 17:30 122 20 111/37 94 Mechanical Ventilator 100 03/01/17 17:00 113/67 03/01/17 17:00 118 20 108/46 98 Mechanical Ventilator 100 03/01/17 16:58 122 25 100 03/01/17 16:30 121 20 101/63 94 Mechanical Ventilator 100 03/01/17 16:00 80 03/01/17 16:00 119 03/01/17 16:00 107/50 03/01/17 16:00 99.0 120 20 107/50 98 Mechanical Ventilator 100 03/01/17 15:30 118 20 100/61 94 Mechanical Ventilator 100 03/01/17 15:00 107/48 03/01/17 15:00 123 21 100 03/01/17 15:00 110 19 107/48 100 Mechanical Ventilator 100 03/01/17 14:30 116 21 116/74 100 Mechanical Ventilator 100 03/01/17 14:18 94/65 03/01/17 14:04 127 86/41 03/01/17 14:00 109/33 03/01/17 14:00 108 20 91/63 100 Mechanical Ventilator 100 03/01/17 13:30 121 21 108/60 98 Mechanical Ventilator 100 03/01/17 13:04 128 20 100 03/01/17 13:00 122 20 111/40 100 Mechanical Ventilator 100 03/01/17 13:00 96/65 Height (Feet): 5 Height (Inches): 7.00 Weight (Pounds): 180 Objective Status: sedated, other Condition: critical HEENT: atraumatic, normocephalic, other - OP with ET in palce, intact Neck: other - RIJ TL intact Lungs: clear, other -s/p removal R HD cath Heart: HR/BP unstable Abdomen: soft, non-tender, active bowel sounds Extremities: no C/C/E Laboratory Tests Test 03/01/17 17:25 03/02/17 04:00 Arterial Blood pH 7.220 (7.350-7.450) Arterial Blood Partial Pressure CO2 36.3 mmHg (35.0-45.0) Arterial Blood Partial Pressure O2 252.4 mmHg (75.0-100.0) H Arterial Blood HCO3 14.5 mmol/L (22.0-26.0) L Arterial Blood Oxygen Saturation 98.8 % (92.0-98.0) H Arterial Blood Base Excess -12.2 Farhan Test Positive Random Vancomycin Level 20.1 ug/mL Current Medications Medications (Trade) Dose Ordered Sig/Nina Route PRN Reason Start Time Stop Time Status Last Admin Dose Admin Acetaminophen (Tylenol) 650 mg Q4H PRN ORAL fever 02/25/17 15:15 03/27/17 15:14 02/26/17 23:37 Artificial Tears (Akwa-Tears) 1 drop QIDPRN PRN BOTH EYES Dry Eyes 03/02/17 10:45 04/01/17 10:44 Chlorhexidine Gluconate (Poonam-Hex 2%) 1 applic DAILY@1999 TOPIC 02/26/17 22:00 03/28/17 21:59 03/01/17 20:14 Glycopyrrolate (Robinul) 0.1 mg Q6H PRN IV excessive secretions 03/02/17 10:45 1/7/18 10:44 Haloperidol Lactate (Haldol) 1 mg Q30M PRN IM Agitation 03/02/17 10:45 04/01/17 10:44 Lorazepam (Ativan 2mg/ml 1ml) 2 mg Q2H PRN IV For Anxiety 02/25/17 15:15 03/04/17 15:14 02/28/17 17:13 Morphine Sulfate 30 ml @ 0 mls/hr BODY FORMER Protocol PRN IV COMFORT MEASURES 03/02/17 10:45 03/04/17 10:44 Morphine Sulfate (Morphine Sulfate) 4 mg Q4H PRN IVP Severe Pain (Pain Scale 7-10) 02/25/17 15:15 03/04/17 15:14 02/27/17 22:46 Ondansetron HCl (Zofran) 4 mg Q6H PRN IVP Nausea & Vomiting 02/25/17 15:15 03/27/17 15:14 Prochlorperazine (Compazine) 10 mg Q6H PRN ORAL Nausea & Vomiting 03/02/17 10:45 04/01/17 10:44 Anamaria Davalos M.D. Mar 02, 2017 12:40
[2017-03-02] MEDS ORDERED: Vancomycin 1gm/D5W 275ml IVPB SCH ×2 (18:00)
--- NOTE | 2017-03-05 11:07 | Discharge Summary ---
Discharge Summary Hospital Course Date of Admission Feb 25, 2017 at 18:55 Date of Discharge Mar 02, 2017 at 11:40 Admitting Diagnosis SEPSIS HPI Krista Watts is a 62 year old female who was admitted on Feb 25, 2017 at 18:55 for Sepsis Hospital Course summary #[id number] Discharge Discharge Disposition Patient Discharge Diagnoses: [facility] ([facility]),Juanis NORMAN Mar 05, 2017 11:07
--- NOTE | 2017-03-06 08:15 | Discharge Summary 2 SIG ---
SUMMARY DATE OF ADMISSION: 02/25/2017 DATE OF EXPIRATION: 03/02/2017. REASON FOR ADMISSION: 62-year-old female with past medical history of end-stage renal disease, on hemodialysis, hemolytic uremic syndrome, hypertension, anemia, and chronic diastolic heart failure, [facility] due to altered mental status and hypotension. Upon arrival in the emergency department, the patient was obtunded, hypotensive, hypoxic. Laboratory workup revealed leukocytosis-25.5, elevated troponin-1.233, hemoglobin-7.4, hematocrit-23.8. Patient required emergent oral intubation . The patient was admitted with sepsis, shock, hypotension, anemia, chronic kidney disease, and elevated troponin. HOSPITAL COURSE: The patient admitted to intensive care unit. Septic workup initiated. The patient pancultured, started on empiric antibiotics. Given only one liter of fluid due to history of congestive heart failure and end stage renal disease. Chest x-ray showed diffuse pulmonary congestion consistent with pulmonary edema. Blood pressure remained low despite one liter of the fluid. The patient was started on pressors. The patient initially was on the Levophed and then Giorgi-Synephrine was added to keep mean arterial pressure above 65. Ventilator support provided. Pulmonary toilet provided. The patient was followed up with daily chest x-ray and ABG to titrate settings as needed. EKG demonstrated sinus tachycardia with premature ventricular contraction, but no ST elevation or depression. Heparin was hold, secondary to thrombocytopenia. Platelet count-78. Venous duplex of bilateral lower extremities revealed no evidence of acute DVT. Echocardiogram revealed ejection fraction of 55%, mild left ventricular hypertrophy, mitral valve prolapse, echogenic material noted on mitral valve posterior leaflets. Two separate jets of moderate eccentric mitral regurgitation, right ventricular systolic pressure of 53 consistent with moderate pulmonary hypertension. Evidence of severe pulmonary regurgitation. Troponin initially increased to 3.7, then to 6.21 and then down to 4.4. Elevated troponin was likely secondary to demand ischemia in the patient with septic shock, bacteremia, and presumed endocarditis, as per auto garage mechanic. The patient was not a candidate for anticoagulation, given severe anemia requiring blood transfusion and severe thrombocytopenia (platelet count was down to 50). EKG revealed sinus rhythm with nonspecific ST-wave abnormality, but no ST elevation. DORIS was canceled since the patient was not stable for procedure. Infectious Disease specialist closely followed. Sepsis was likely due to infected PermCath, which was removed by general surgeon on 02/26/2017 with evidence of the purulent drainage upon removal . Drainage was evacuated by surgeon, Culture of drainage fluid revealed MRSA. Blood culture revealed MRSA. Repeated blood culture continued to grow MRSA. Removed PermCath tip culture revealed Staph aureus. Per Infectious Disease specialist, septic shock was likely due to persistent high-grade Staph MRSA bacteremia, secondary to line infection. Additional sources, as per ID specialist - presumed endocarditics, left renal abscess and pneumonia. Last chest x-ray revealed worsening diffuse bilateral interstitial infiltrates versus edema. Leukocytosis persistent likely due to the un-drained renal abscess. The patient had cholelithiasis and possible cholecystitis. CT of the abdomen showed a distended gallbladder, large gallstone, but no definite biliary ductal dilatation. Subsequently the abdominal ultrasound revealed cholelithiasis, no definite gallbladder wall thickening, negative for dilated ducts. The patient also had a bilateral knee synovitis and Infectious Disease was working on to rule out septic arthritis. The patient undergone transfusion of total of two units of packed red blood cells for acute anemia and two units of plateletpheresis for acute thrombocytopenia. The lowest platelet count- 37 and after transfusion- 168. ID specialist recommended drainage of left renal fluid collection and urology evaluation. Urologist seen and evaluated the patient. CT scan revealed anasarca and diffuse bilateral pulmonary and parenchymal airspace consolidation, cardiomegaly, pericardial effusion, massive fluid collection around the left kidney, likely subcapsular with vascular embolization coils in the left renal hilum raising the possibility that it could be residual from previously perinephric hematoma among the other findings. According to the medical orderly, physical exam did not reveal anything from genitourinary standpoint. Laboratory workup revealed evidence of renal failure and extremely elevated leukocytosis. Urologist felt that the patient may had a previous vascular intervention to embolize hematoma or renal mass. There was no way of knowing without previous imaging whether or not the mass had increased, changed in size, or it was mass versus hematoma. Given the overall critical health condition, there was no role for surgical intervention at that time, as per urologist. Wound care nurse seen and evaluated the patient. Wound care was provided as per wound care nurse recommendation. Senior Professional Services Consultant followed the patient closely. Per medical orderly, the patient was doing poorly on maximum pressors with evidence of pulmonary edema. No dialysis due to shock and low blood pressure. The patient had severe hypoalbuminemia, albumin was given. Electrolytes replaced as needed. Per medical orderly, the patient had a poor prognosis and recommended DNR/DNI status. Patient was intubated, continued to require maximum dose of two pressors for hemodynamic support, persistent high leukocytosis, unable to have hemodialysis due to hypotension. On 02/28/2017, the patient had a cardiopulmonary arrest. The patient initially showed evidence of tachyarrhythmia and then went to asystole. Code was called at 1715.. Return of spontaneous circulation at 1718. All the consultants agree with the grave prognosis and poor chances for recovery. Code Status was changed. Sister and niece were at the bedside and were explained in detail seriousness of patient condition and grim prognosis. The patient's daughter lives in [facility]. She was informed of her mother's condition by relatives and agreed to terminal extubation. Code Status was changed on 03/01/2017. Subsequently on 03/02/2017, pressors stopped, blood pressure was started slowly trending down. The patient was extubated at 11:30 on 03/02/2017 and at 11:40, she was pronounced. Cause of : cardiopulmonary arrest. FINAL DIAGNOSES: 1. Severe sepsis with shock. 2. Acute hypoxemic respiratory failure requiring intubation. 3, Status post cardiopulmonary arrest on 02/28/2017. 4. Acute toxic metabolic encephalopathy, likely secondary to sepsis. 5. Elevated troponin, likely secondary to demand ischemia. 6. High-grade MRSA bacteremia, secondary to line infection. 7. Presumed mitral valve endocarditis. 8. Pulmonary edema 9. Pneumonia 10. Left renal fluid collection, probably abscess. 11. End-stage renal disease, on hemodialysis. 12. Acute anemia requiring blood transfusion 13. Acute thrombocytopenia requiring plateletpheresis transfusion. 14. Severe pulmonary regurgitation 15. Moderate to severe pulmonary hypertension. 16. History of congestive heart failure 17. Cholelithiasis, possible cholecystitis. 18. Bilateral knee synovitis, rule out septic arthritis. 19. Sacral decubitus, un-stageable, present on admission. 20. Left ischial tuberosity stage III, present on admission. 21. Multiple deep tissue injury, present on admission. 22. Severe hypoalbuminemia. Marcos Cason M.D. I have been assigned to dictate discharge summary on this account and I was not involved in the patient's management. Juanis Artkaroline N.PJohan DR: VAMSHI JOB#: [id number] CC: TORRES
--- NOTE | 2017-03-08 11:01 | Diagnostic Imaging Report ---
APPROVED REPORT CPT Code: 98046 Symptoms Comments: R/O Obstruction RIGHT LEG: Common femoral artery waveform analysis is within normal limits at rest. Color flow duplex sonography reveals non-significant plaque throughout the superficial femoral and popliteal arteries. There is no evidence of stenosis or occlusion within these segments. The tibioperoneal trunk was patent. The posterior, dorsalis pedis and anterior tibial arteries are also patent. Doppler waveform analysis is monophasic, consistent with minimal ischemia at rest. LEFT LEG: Common femoral artery waveform analysis is within normal limits at rest. Color flow duplex sonography reveals non-significant plaque throughout the superficial femoral and popliteal arteries. There is no evidence of stenosis or occlusion within these segments. The tibioperoneal trunk was patent. The posterior, dorsalis pedis and anterior tibial arteries are also patent. Doppler waveform analysis is monophasic, consistent with minimal ischemia at rest.
== END 2017-03-02 11:40 | disposition expired | DRG 466 ==
LOC: EDBD 09:46 → EDSEX 10:28 → EMR 10:28 → EDBEDREQ 18:21 → ICU 18:55
PROC: 05HM33Z Insertion of Infusion Device into Right Internal Jugular Vein, Percutaneous Approach (ICD-10-PCS; principal; 2017-02-25)
PROC: 5A1955Z Respiratory Ventilation, Greater than 96 Consecutive Hours (ICD-10-PCS; principal; 2017-02-25)
PROC: 0BH17EZ Insertion of Endotracheal Airway into Trachea, Via Natural or Artificial Opening (ICD-10-PCS; principal; 2017-02-25)
DX: T82.7XXA Infection and inflammatory reaction due to other cardiac and vascular devices, implants and grafts, initial encounter (principal); N18.6 End stage renal disease; J96.01 Acute respiratory failure with hypoxia; A41.02 Sepsis due to Methicillin resistant Staphylococcus aureus; G93.41 Metabolic encephalopathy; I13.2 Hypertensive heart and chronic kidney disease with heart failure and with stage 5 chronic kidney disease, or end stage renal disease; R65.21 Severe sepsis with septic shock; J18.9 Pneumonia, unspecified organism; N15.1 Renal and perinephric abscess; R57.0 Cardiogenic shock; J80 Acute respiratory distress syndrome; L89.223 Pressure ulcer of left hip, stage 3; D64.9 Anemia, unspecified; Z99.2 Dependence on renal dialysis; I50.32 Chronic diastolic (congestive) heart failure; I24.8 Other forms of acute ischemic heart disease; I05.8 Other rheumatic mitral valve diseases; D69.6 Thrombocytopenia, unspecified; L89.150 Pressure ulcer of sacral region, unstageable; Z93.1 Gastrostomy status; E88.09 Other disorders of plasma-protein metabolism, not elsewhere classified; M65.9 Synovitis and tenosynovitis, unspecified; K80.10 Calculus of gallbladder with chronic cholecystitis without obstruction; I27.20 Pulmonary hypertension, unspecified; I37.1 Nonrheumatic pulmonary valve insufficiency; E83.42 Hypomagnesemia; I73.9 Peripheral vascular disease, unspecified
CPT/HCPCS: 31500; 36415; 36430; 36600; 71010; 71250; 74000; 74176; 76700; 80053; 80061; 80150; 80162; 80202; 82140; 82248; 82550; 82553; 82803; 82977; 83036; 83605; 83735; 83880; 84100; 84443; 84484; 84550; 85007; 85025; 85060; 85610; 85651; 85730; 86140; 86710; 86850; 86900; 86901; 86920; 87040; 87070; 87181; 87205; 92950; 93005; 93306; 93925; 93970; 94002; 94003; 94664; J0171; J2370